=== PATIENT | female | born 1985 | race Hispanic/Latino ===

== ENCOUNTER 2017-03-18 20:47 | Emergency (ER) | payer MEDICAID ==
[~2017-03-18] VITALS: Ht 162.6 cm; Wt 72.6 kg
[~2017-03-18 20:47] MED LIST: ACHD5005 PO; AMOX500C2 PO; CEPH500C PO; CFP200T PO; CPR500T PO; CYCL10TA9 PO; DOXY100C42 PO; FERR325C PO; FRS325T PO; HYDR-3456 PO; HYDR-3816; IBP600T1 PO; IBUP-30 PO; INSASP10V SC; INSASP10V SQ; INSU100C4 SQ; INSU100I16 SQ; INSU100I23 SQ; INSU100V SQ; INSU100V16 SC; INSU100V6 SQ; LEVE1U SQ; LVF500T PO; METF-380 PO; METR500T PO; MTF500T PO; NITR-65 PO; NITR100C PO; NITR100C3 PO; PREN1TAB39 PO
[2017-03-18] MEDS ORDERED: NS IV 1000 ML 1,000 ML IV ONE ×2 (21:09→22:21)
[2017-03-18 21:21] LABS: ABG BASE EXCESS 0.9 MMOL/L (-2.5-2.5); ABG HCO3 25 MMOL/L (23-27); ABG OXYGEN SATURATION 99 % (94-100); ABG PCO2 38 MMHG (35-45); ABG PH 7.43 (7.37-7.43); ABG PO2 113 MMHG (79-93)
[2017-03-18 21:25] LABS: PATIENT TEMP 98.2
--- NOTE | 2017-03-18 21:25 | ED General ---
General Chief Complaint: Glucose Problems Stated Complaint: HIGH BLOOD SUGAR,RASH ON BUTTOCKS Nursing Triage Note: C/O HIGH BLOOD SUGAR, REPORTS HASN'T CHECKED HER LEVEL IN 3 DAYS Nursing Sepsis Screen: No Definite Risk Source of Information: Patient History of Present Illness Time Seen by Provider: 21:04 Initial Comments PT ARRIVES VIA POV FROM HOME PT STATES SHE HAS "SYMPTOMS OF HIGH BLOOD SUGAR" BUT HAS NOT CHECKED HER BLOOD SUGAR IN 3 DAYS, DOES HAVE GLUCOMETER AND TEST STRIPS AT HOME, AND GIVES NO REASON TO WHY SHE HAS NOT CHECKED IT C/O BEING TIRED--"BUT I'VE BEEN WORKING ALOT" , C/O THIRST, AND URINARY FREQUENCY--FOR THE LAST COUPLE OF DAYS STATES THE LAST TIME SHE CHECKED HER BLOOD SUGAR IT WAS "HIGH--IN THE 'S" BUT HAS NOT TAKEN HER INSULIN FOR A FEW DAYS, AND FREQUENTLY DOES NOT TAKE HER INSULIN, AND RARELY CHECKS HER BLOOD SUGAR SHE DID NOT TAKE INSULIN TODAY EITHER, AND GIVES NO REASON WHY SHE DID NOT PT STATES SHE DOESN'T TAKE HER INSULIN "BECAUSE SHE WORKS" PT WORKS AT [employer] AND THERE ARE REFRIGERATORS THAT SHE COULD USE TO PUT HER INSULIN IN WHILE SHE IS WORKING, BUT SIMPLY DOES NOT HAS NOT FOLLOWED UP AT [facility] OR ANYONE FOR DIABETES "FOR A LONG TIME" ALSO C/O "YEAST INFECTION" IN VAGINAL / GENITAL AREA FOR A COUPLE OF WEEKS-- STATES SHE WAS SEEN AT [facility] FOR THIS A COUPLE OF WEEKS AGO AND HAD VAGINAL EXAM AND CULTURES DONE, BUT STATES SHE DOES NOT KNOW TEST RESULTS, BUT "THEY GAVE ME SOME MEDICINE FOR IT" BUT DOES NOT KNOW WHAT MEDICATION SHE WAS PRESCRIBED. STATES SYMPTOMS NOT BETTER. C/O ITCHING AND VAGINAL DISCHARGE SON WAS IN ER LAST PM AND DX WITH STREP PT DOES NOT C/O SORE THROAT PCP:[facility] Allergies and Home Medications Allergies Coded Allergies: No Known Drug Allergies (Unverified , 09/25/11) Home Medications Fluconazole 200 Mg Tablet, 200 MG PO DAILY, #10 Prescribed by: SKYE LAKE on 03/18/17 2220 Insulin Glargine,Hum.rec.anlog 100 Unit/1 Ml Vial, 60 UNIT SQ HS, (Reported) Insulin Lispro 100 Unit/1 Ml Vial, Unknown Dose SQ SLIDING/SCALE, (Reported) Miconazole/Skin Cleanser No.17 1 Each Kit, 1 EACH VG UD, #1 Prescribed by: SKYE LAKE on 03/18/172219 Nitrofurantoin Monohyd/M-Cryst 100 Mg Capsule, 100 MG PO BID, #20 Prescribed by: SKYE LAKE on 03/18/172246 Constitutional: malaise EENTM: no symptoms reported Respiratory: no symptoms reported Cardiovascular: no symptoms reported Gastrointestinal: no symptoms reported Genitourinary: see HPI, frequency, other (ITCHING) : No LMP: Feb 13, 2017 (PERIODS IRREGULAR SINCE SHE HAS HAD IUD IN PLACE) Musculoskeletal: no symptoms reported Skin: see HPI (VAGINAL / GENITAL YEAST INFECTION--ITCHING, ETC. ) Psychiatric/Neurological: No Symptoms Reported Hematologic/Lymphatic: No Symptoms Reported Immunological/Allergic: no symptoms reported Past Ykagpuf-Jtumvd-Sujeps Hx Patient Social History Alcohol Use: Denies Use Recreational Drug Use: No Smoking Status: Current Everyday Smoker Type Used: Cigarettes Recent Foreign Travel: No Contact w/Someone Who Travel: No Recent Infectious Disease Expo: No Recent Hopitalizations: No Immunizations Up To Date Tetanus Booster (TDap): More than 5yrs PED Vaccines UTD: Yes Date of Pneumonia Vaccine: Sep 26, 2011 Date of Influenza Vaccine: Aug 22, 2012 Surgeries HX Surgeries: Yes Surgeries: Gallbladder Respiratory Hx Respiratory Disorders: No Cardiovascular Hx Cardiac Disorders: Yes (TACHYCARDIA BY HISTORY ) Cardiac Disorders: Heart Murmur Neurological Hx Neurological Disorders: No Reproductive System Hx Reproductive Disorders: No Sexually Transmitted Disease: No HIV/AIDS: 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 Genitourinary Hx Genitourinary Disorders: Yes Genitourinary Disorders: UTI-Chronic Gastrointestinal Hx Gastrointestinal Disorders: Yes (S/P LÓPEZ) Gastrointestinal Disorders: Gall Bladder Disease Musculoskeletal Hx Musculoskeletal Disorders: No Endocrine Hx Endocrine Disorders: Yes (DX AGE 13) Endocrine Disorders: Diabetes, Insulin dep HEENT HX ENT Disorders: No Cancer Hx Cancer: No Psychosocial Hx Psychiatric Problems: Yes (SUICIDE ATTEMPT AT AGE 13 Y/O) Behavioral Health Disorders: Anxiety, Suicide Attempts, Depression Integumentary HX Skin/Integumentary Disorder: No Blood Transfusions Hx Blood Disorders: Yes (ANEMIA) Adverse Reaction to a Blood Tr: No Family Medical History Family Medial History: Family history: Diabetes mellitus 19 MOTHER Physical Exam Vital Signs Vital Sign - Last 12Hours 03/18/17 21:01 Temp 98.2 Pulse 97 Resp 18 B/P (MAP) 76/ Pulse Ox 99 O2 Flow Rate 105.00 Capillary Refill : Less Than 3 Seconds General Appearance: No Apparent Distress, WD/WN HEENT: PERRL/EOMI, Other (POOR DENTITION, MULTIPLE MISSING TEETH) Neck: Full Range of Motion, Normal Inspection, Non Tender, Supple Respiratory: Normal Breath Sounds, No Accessory Muscle Use, No Respiratory Distress Cardiovascular: Regular Rate, Rhythm, No Edema, No JVD, No Murmur, Normal Peripheral Pulses Gastrointestinal: Normal Bowel Sounds, No Organomegaly, No Pulsatile Mass, Non Tender, Soft Genital/Rectal: Other (EXTERNAL GENITAL AREA--ERYTHEMA TO VULVO/VAGINAL AREA. NO OBVIOUS DISCHARGE. 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 II-XII Norm as Tested Skin: Normal Color, Warm/Dry, Tattoos/Piercings (MULTIPLE TATTOOS) Progress/Results/Core Measures Results/Orders Lab Results Laboratory Tests Test 03/18/17 21:08 03/18/17 21:12 03/18/17 21:15 03/18/17 21:20 Range/Units Glucometer 503 *H 70-110 MG/DL Group A Streptococcus Screen NEGATIVE NEGATIVE Blood Gas Puncture Site RIGHT BRACHIAL Blood Gas Patient Temperature 98.2 Arterial Blood pH 7.43 7.37-7.43 Arterial Blood Partial Pressure CO2 38 35-45 MMHG Arterial Blood Partial Pressure O2 113 H 79-93 MMHG Arterial Blood HCO3 25 23-27 MMOL/L Arterial Blood Total CO2 26.0 21.0-31.0 MMOL/L Arterial Blood Oxygen Saturation 99 94-100 % Arterial Blood Base Excess 0.9 -2.5-2.5 MMOL/L Kevin Test NA Blood Gas Ventilator Setting NO Blood Gas Inspired Oxygen ROOM AIR White Blood Count 6.6 4.3-11.0 10^3/uL Red Blood Count 4.39 4.35-5.85 10^6/uL Hemoglobin 13.9 11.5-16.0 G/DL Hematocrit 40 35-52 % Mean Corpuscular Volume 90 80-99 FL Mean Corpuscular Hemoglobin 32 25-34 PG Mean Corpuscular Hemoglobin Concent 35 32-36 G/DL Red Cell Distribution Width 11.9 10.0-14.5 % Platelet Count 242 130-400 10^3/uL Mean Platelet Volume 11.6 H 7.4-10.4 FL Neutrophils (%) (Auto) 54 42-75 % Lymphocytes (%) (Auto) 35 12-44 % Monocytes (%) (Auto) 8 0-12 % Eosinophils (%) (Auto) 3 0-10 % Basophils (%) (Auto) 1 0-10 % Neutrophils # (Auto) 3.5 1.8-7.8 X 10^3 Lymphocytes # (Auto) 2.3 1.0-4.0 X 10^3 Monocytes # (Auto) 0.6 0.0-1.0 X 10^3 Eosinophils # (Auto) 0.2 0.0-0.3 10^3/uL Basophils # (Auto) 0.0 0.0-0.1 10^3/uL Sodium Level 133 L 135-145 MMOL/L Potassium Level 3.7 3.6-5.0 MMOL/L Chloride Level 93 L 98-107 MMOL/L Carbon Dioxide Level 26 21-32 MMOL/L Anion Gap 14 5-14 MMOL/L Blood Urea Nitrogen 14 7-18 MG/DL Creatinine 1.02 0.60-1.30 MG/DL Estimat Glomerular Filtration Rate > 60 BUN/Creatinine Ratio 14 Glucose Level 495 *H 70-105 MG/DL Calcium Level 10.3 H 8.5-10.1 MG/DL Magnesium Level 2.1 1.8-2.4 MG/DL Total Bilirubin 1.1 H 0.1-1.0 MG/DL Aspartate Amino Transf (AST/SGOT) 27 5-34 U/L Alanine Aminotransferase (ALT/SGPT) 59 H 0-55 U/L Alkaline Phosphatase 121 40-136 U/L Total Protein 8.6 H 6.4-8.2 GM/DL Albumin 4.6 H 3.2-4.5 GM/DL Amylase Level 15 L 25-125 U/L Lipase 4 L 8-78 U/L TSH Toutle Testing 3.22 0.35-4.94 UIU/ML Serum Test, Qualitative NEGATIVE NEGATIVE Serum Alcohol < 10 <10 MG/DL Monoscreen NEGATIVE NEGATIVE Test 03/18/17 21:47 Range/Units Urine Color YELLOW Urine Clarity CLEAR Urine pH 6 5-9 Urine Specific [place] 1.010 L 1.016-1.022 Urine Protein 2+ H NEGATIVE Urine Glucose (UA) 4+ H NEGATIVE Urine Ketones 3+ H NEGATIVE Urine Nitrite NEGATIVE NEGATIVE Urine Bilirubin NEGATIVE NEGATIVE Urine Urobilinogen NORMAL NORMAL MG/DL Urine Leukocyte Esterase NEGATIVE NEGATIVE Urine RBC (Auto) 1+ H NEGATIVE Urine RBC 0-2 /HPF Urine WBC 10-25 H /HPF Urine Crystals NONE /LPF Urine Bacteria LARGE H /HPF Urine Casts NONE /LPF Urine Mucus NEGATIVE /LPF Urine Culture Indicated YES Urine Opiates Screen NEGATIVE NEGATIVE Urine Oxycodone Screen NEGATIVE NEGATIVE Urine Methadone Screen NEGATIVE NEGATIVE Urine Propoxyphene Screen NEGATIVE NEGATIVE Urine Barbiturates Screen NEGATIVE NEGATIVE Ur Tricyclic Antidepressants Screen NEGATIVE NEGATIVE Urine Phencyclidine Screen NEGATIVE NEGATIVE Urine Amphetamines Screen NEGATIVE NEGATIVE Urine Methamphetamines Screen NEGATIVE NEGATIVE Urine Benzodiazepines Screen NEGATIVE NEGATIVE Urine Cocaine Screen NEGATIVE NEGATIVE Urine Cannabinoids Screen NEGATIVE NEGATIVE My Orders Orders - SKYE LAKE DO Saline Lock/Iv-Start (03/18/17 21:09) Monitor-Rhythm Ecg Trace Only (03/18/17 21:09) Alcohol (03/18/17 21:09) Amylase (03/18/17 21:09) Arterial Blood Gas (03/18/17 21:09) Cbc With Automated Diff (03/18/17 21:09) Comprehensive Metabolic Panel (03/18/17 21:09) Drug Screen Stat (Urine) (03/18/17 21:09) Hcg,Qualitative Serum (03/18/17 21:09) Lipase (03/18/17 21:09) Magnesium (03/18/17 21:09) Monotest (03/18/17 21:09) Rapid Strep A Screen (03/18/17 21:09) Thyroid Analyzer (03/18/17 21:09) Ua Culture If Indicated (03/18/17 21:09) Saline Lock/Iv-Start (03/18/17 21:09) Ns Iv 1000 Ml (Sodium Chloride 0.9%) (03/18/17 21:09) Insulin (Regular) Human (Humulin R (Per (03/18/17 22:15) Urine Culture (03/18/17 21:47) Ceftriaxone Injection (Rocephin Injectio (03/18/17 22:30) Saline Lock/Iv-Start (03/18/17 22:21) Ns Iv 1000 Ml (Sodium Chloride 0.9%) (03/18/17 22:21) Insulin (Regular) Human (Humulin R (Per (03/18/17 22:15) Medications Given in ED Current Medications Medications Dose Ordered Sig/Cha Route Start Time Stop Time Status Last Admin Dose Admin Ceftriaxone Sodium 1000 mg/ Sodium Chloride 50 ml @ 100 mls/hr ONCE ONCE IV 03/18/17 22:30 03/18/17 22:59 DC 03/18/17 22:53 100 MLS/HR Insulin Human Regular 20 unit ONCE ONCE IV 03/18/17 22:15 03/18/17 22:20 DC 03/18/17 22:25 20 UNIT Sodium Chloride 1,000 ml @ 0 mls/hr Q0M ONCE IV 03/18/17 21:09 03/18/17 21:11 DC 03/18/17 21:22 0 MLS/HR Sodium Chloride 1,000 ml @ 0 mls/hr Q0M ONCE IV 03/18/17 22:21 03/18/17 22:37 DC 03/18/17 22:25 0 MLS/HR Vital Signs/I&O Vital Sign - Last 12Hours 03/18/17 03/18/17 21:01 23:03 Temp 98.2 Pulse 97 81 Resp 18 18 B/P (MAP) 76/ Pulse Ox 99 100 O2 Flow Rate 105.00 Progress Note : Progress Note ACCUCHECK 503 ON ARRIVAL ACCHCHECK 153 AT DISMISSAL STRESSED THE IMPORTANCE OF CHECKING HER BLOOD GLUCOSE AT LEAST 3 TIMES A DAY AND NOT MISSING ANY DOSES OF HER INSULIN ADVISED HER TO TAKE HER INSULIN AND GLUCOMETER WITH HER TO WORK EVERY SINGLE DAY. UNEVENTFUL ER STAY Departure Impression Impression: Primary Impression: Type I diabetes mellitus, uncontrolled Additional Impressions: Noncompliance with medication regimen EXTREME NON-COMPLIANCE IN ALL ASPECTS OF CARE Vulvovaginal candidiasis Urinary tract infectious disease Disposition: 01 HOME, SELF-CARE Condition: Improved Departure-Patient Inst. Referrals: [facility] (PCP/Family) Primary Care Physician Patient Instructions: Blood Glucose Monitoring, Diabetes Diet , Diabetes Type 1 , Adult (DC), Diabetic Meal Planning , Insulin Injection, Urinary Tract Infection, Adult (DC) Add. Discharge Instructions: CHECK YOUR BLOOD SUGAR AT LEAST 3 TIMES A DAY AND KEEP DIARY OF READINGS TAKE YOUR INSULIN EXACTLY PRESCRIBED FOLLOW UP WITH [facility] ON TUESDAY FOR FURTHER CARE All discharge instructions reviewed with patient and/or family. Voiced understanding. Scripts Nitrofurantoin Monohyd/M-Cryst (Macrobid 100 mg Capsule) 100 Mg Capsule 100 MG PO BID, #20 CAP Prov: SKYE LAKE DO 03/18/17 Miconazole/Skin Cleanser No.17 (Monistat 7 Combination Pack) 1 Each Kit 1 EACH VG UD, #1 KIT Prov: SKYE LAKE DO 03/18/17 Fluconazole (Diflucan) 200 Mg Tablet 200 MG PO DAILY for FOR YEAST INFECTION, #10 TAB Prov: SKYE LAKE DO 03/18/17 SKYE LAKE DO Mar 18, 2017 21:25
[2017-03-18 21:31] LABS: BASOPHILS % (AUTO) 1 % (0-10); EOSINOPHILS # (AUTO) 0.2 10^3/uL (0.0-0.3); EOSINOPHILS % (AUTO) 3 % (0-10); LYMPHOCYTES # (AUTO) 2.3 X 10^3 (1.0-4.0); LYMPHOCYTES % (AUTO) 35 % (12-44); MEAN CORPUSCULAR HEMOGLOBIN 32 PG (25-34); MEAN CORPUSCULAR HGB CONC 35 G/DL (32-36); MEAN CORPUSCULAR VOLUME 90 FL (80-99); MEAN PLATELET VOLUME 11.6 FL (7.4-10.4); MONOCYTES # (AUTO) 0.6 X 10^3 (0.0-1.0); MONOCYTES % (AUTO) 8 % (0-12); NEUTROPHILS # (AUTO) 3.5 X 10^3 (1.8-7.8); NEUTROPHILS % (AUTO) 54 % (42-75); PLATELET COUNT 242 10^3/uL (130-400); RED BLOOD COUNT 4.39 10^6/uL (4.35-5.85); RED CELL DISTRIBUTION WIDTH 11.9 % (10.0-14.5); WHITE BLOOD COUNT 6.6 10^3/uL (4.3-11.0)
[2017-03-18 21:50] LABS: ALANINE AMINOTRANSFERASE 59 U/L (0-55); ALBUMIN 4.6 GM/DL (3.2-4.5); ALCOHOL < 10 MG/DL (<10); AMYLASE 15 U/L (25-125); ANION GAP 14 MMOL/L (5-14); ASPARTATE AMINO TRANSFERASE 27 U/L (5-34); BILIRUBIN,TOTAL 1.1 MG/DL (0.1-1.0); BLOOD UREA NITROGEN 14 MG/DL (7-18); BUN/CREATININE RATIO 14; CALCIUM 10.3 MG/DL (8.5-10.1); CARBON DIOXIDE 26 MMOL/L (21-32); CHLORIDE 93 MMOL/L (98-107); CREATININE SERUM 1.02 MG/DL (0.60-1.30); GFR ESTIMATED > 60; LIPASE 4 U/L (8-78); MAGNESIUM 2.1 MG/DL (1.8-2.4); POTASSIUM 3.7 MMOL/L (3.6-5.0); SODIUM 133 MMOL/L (135-145); TOTAL PROTEIN 8.6 GM/DL (6.4-8.2)
[2017-03-18 21:53] LABS: GLUCOSE 495 MG/DL (70-105)
[2017-03-18 21:55] LABS: BILIRUBIN,URINE NEGATIVE (NEGATIVE); KETONES,URINE 3+ (NEGATIVE); LEUKOCYTE ESTERASE ,URINE NEGATIVE (NEGATIVE); NITRITE,URINE NEGATIVE (NEGATIVE); PH,URINE 6 (5-9); PROTEIN,URINE 2+ (NEGATIVE); UROBILINOGEN,URINE NORMAL (NORMAL)
[2017-03-18] MEDS ORDERED: inSUlin (REGULAR) HUMAN 1 UNIT/0.01 ML (CHARGE PER UNIT) ONE (22:15)
[2017-03-18] MEDS ORDERED: inSUlin (REGULAR) HUMAN 1 UNIT/0.01 ML (CHARGE PER UNIT) IV ONE (22:15)
[2017-03-18] MEDS ORDERED: MICO1KIT13 VG (22:20)
[2017-03-18] MEDS ORDERED: FLUC200T PO (22:20)
[2017-03-18] MEDS ORDERED: cefTRIAXone INJECTION 1,000 MG in NS (IVPB) 50 ML IV ONE (22:30)
[2017-03-18] MEDS ORDERED: NITR-65 PO (22:47)
[2017-03-18 23:03] VITALS: BP 100/70
[2017-03-20] MEDS ORDERED: AMOX500C2 PO (17:22)
== END 2017-03-18 23:07 | disposition home or self-care (01) ==
LOC: EDUNIT# 20:47 → ER 20:51
DX: E10.9 Type 1 diabetes mellitus without complications (principal); B37.3 Candidiasis of vulva and vagina; N39.0 Urinary tract infection, site not specified; F41.9 Anxiety disorder, unspecified; F32.9 Major depressive disorder, single episode, unspecified; F17.210 Nicotine dependence, cigarettes, uncomplicated; Z91.14 Patient's other noncompliance with medication regimen; Z91.5 Personal history of self-harm; Z79.4 Long term (current) use of insulin
CPT/HCPCS: 36415; 80053; 80306; 80320; 81000; 82150; 82805; 82962; 83690; 83735; 84443; 84703; 85025; 86308; 87088; 87186; 87430

== ENCOUNTER 2017-06-03 12:14 | Emergency (ER) | payer MEDICAID ==
[~2017-06-03] VITALS: Ht 160 cm; Wt 72.6 kg
[~2017-06-03 12:14] MED LIST changes: +FLUC200T PO; +MICO1KIT13 VG
[2017-06-03] MEDS: DEXTROSE 50% 50 ML (IMS) SYR ONE (12:28)
[2017-06-03] MEDS ORDERED: GABA-488 (12:37)
[2017-06-03] MEDS ORDERED: INSU100I29 (12:37)
[2017-06-03 12:38] LABS: BASOPHILS % (AUTO) 0 % (0-10); EOSINOPHILS % (AUTO) 0 % (0-10); LYMPHOCYTES # (AUTO) 0.9 X 10^3 (1.0-4.0); LYMPHOCYTES % (AUTO) 14 % (12-44); MEAN CORPUSCULAR HEMOGLOBIN 31 PG (25-34); MEAN CORPUSCULAR HGB CONC 32 G/DL (32-36); MEAN CORPUSCULAR VOLUME 98 FL (80-99); MEAN PLATELET VOLUME 10.8 FL (7.4-10.4); MONOCYTES # (AUTO) 0.3 X 10^3 (0.0-1.0); MONOCYTES % (AUTO) 4 % (0-12); NEUTROPHILS # (AUTO) 5.5 X 10^3 (1.8-7.8); NEUTROPHILS % (AUTO) 82 % (42-75); PLATELET COUNT 220 10^3/uL (130-400); RED BLOOD COUNT 3.48 10^6/uL (4.35-5.85); RED CELL DISTRIBUTION WIDTH 12.5 % (10.0-14.5); WHITE BLOOD COUNT 6.7 10^3/uL (4.3-11.0)
--- NOTE | 2017-06-03 12:41 | ED General ---
General Chief Complaint: Glucose Problems Stated Complaint: HYPOGLYCEMIA Nursing Triage Note: ARRIVED VIA AMB TO ROOM 08. FOUND UNRESPONSIVE AT HOME ET UPON EMS ARRIVAL BLOOD SUGAR SAID "LOW". AFTER EMS GAVE D50 IV HER BLOOD SUGAR WENT UP TO 140 AND BECAME RESPONSIVE FOR THEM. Nursing Sepsis Screen: No Definite Risk Source of Information: Patient Exam Limitations: No Limitations History of Present Illness Time Seen by Provider: 12:20 Initial Comments Here with report of low blood sugar this morning. Her son found her and called EMS due to unresponsiveness. Blood sugar was low on the monitor. 1 amp of D50 given and blood pressure improved to the 130s. Patient's mentation improved. She relates that she has not been feeling well over the past few days and slept all day yesterday. She did not eat much. Denies fever or chills. Denies nausea or vomiting. States that she just feels weak. Did have a fall to her knees yesterday but denies hitting her head. Denies pain or other sequela from that. Timing/Duration: 2-3 Days, Getting Worse Severity: Moderate Associated Systoms: No Chest Pain, No Cough, Diaphoresis, No Fever/Chills, Loss of Appetite, No Nausea/Vomiting, Weakness Allergies and Home Medications Allergies Coded Allergies: No Known Drug Allergies (Unverified , 09/25/11) Home Medications Gabapentin 300 Mg Capsule, (Reported) Insulin Detemir 100 Unit/1 Ml Insuln.pen, (Reported) Insulin Glargine,Hum.rec.anlog 100 Unit/1 Ml Vial, 60 UNIT SQ HS, (Reported) Insulin Lispro 100 Unit/1 Ml Vial, Unknown Dose SQ SLIDING/SCALE, (Reported) Constitutional: see HPI, No chills, No fever EENTM: no symptoms reported Respiratory: no symptoms reported Cardiovascular: No chest pain, edema Gastrointestinal: No abdominal pain, No nausea, No vomiting Genitourinary: no symptoms reported Musculoskeletal: No muscle pain, muscle weakness Skin: no symptoms reported Psychiatric/Neurological: Weakness Hematologic/Lymphatic: No Symptoms Reported All Other Systems Reviewed Negative Unless Noted: Yes Past Wkaqkux-Rreqwa-Qmtqam Hx Patient Social History Alcohol Use: Occasionally Uses Recreational Drug Use: No Smoking Status: Current Everyday Smoker Type Used: Cigarettes Recent Foreign Travel: No Contact w/Someone Who Travel: No Recent Infectious Disease Expo: No Recent Hopitalizations: No Immunizations Up To Date Tetanus Booster (TDap): More than 5yrs PED Vaccines UTD: Yes Date of Pneumonia Vaccine: Sep 26, 2011 Date of Influenza Vaccine: Aug 22, 2012 Surgeries History of Surgeries: Yes Surgeries: Gallbladder Respiratory History of Respiratory Disorde: No Cardiovascular History of Cardiac Disorders: Yes (TACHYCARDIA BY HISTORY ) Cardiac Disorders: Heart Murmur Neurological History of Neurological Disord: No Reproductive System Hx Reproductive Disorders: No Sexually Transmitted Disease: No HIV/AIDS: No 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 Genitourinary History of Genitourinary Disor: No Genitourinary Disorders: UTI-Chronic Gastrointestinal History of Gastrointestinal Di: Yes (S/P LÓPEZ) Gastrointestinal Disorders: Gall Bladder Disease Musculoskeletal History of Musculoskeletal Dis: No Endocrine History of Endocrine Disorders: Yes (DX AGE 13) Endocrine Disorders: Diabetes, Insulin dep HEENT History of HEENT Disorders: No Cancer History of Cancer: No Psychosocial History of Psychiatric Problem: Yes (SUICIDE ATTEMPT AT AGE 13 Y/O) Behavioral Health Disorders: Anxiety, Suicide Attempts, Depression Integumentary History of Skin or Integumenta: No Blood Transfusions History of Blood Disorders: Yes (ANEMIA) Adverse Reaction to a Blood Tr: No Reviewed Nursing Assessment Reviewed/Agree w Nursing PMH: Yes Family Medical History Family Medial History: Family history: Diabetes mellitus 19 MOTHER Physical Exam Vital Signs Vital Sign - Last 12Hours 06/03/17 12:14 Temp 98.0 Pulse 86 Resp 18 B/P (MAP) 131/91 Pulse Ox 98 Capillary Refill : Less Than 3 Seconds General Appearance: No Apparent Distress, WD/WN HEENT: PERRL/EOMI, Pharynx Normal, Other (puffiness around both eyes) Neck: Non Tender, Supple Respiratory: Lungs Clear, Normal Breath Sounds Cardiovascular: Regular Rate, Rhythm, No Murmur Gastrointestinal: Non Tender, Soft Back: Normal Inspection, No CVA Tenderness, No Vertebral Tenderness Extremity: Normal Range of Motion, Non Tender Neurologic/Psychiatric: Alert, Oriented x3 Skin: Normal Color, Cool, Diaphoresis Progress/Results/Core Measures Results/Orders Lab Results Laboratory Tests Test 06/03/17 12:25 06/03/17 12:40 Range/Units White Blood Count 6.7 4.3-11.0 10^3/uL Red Blood Count 3.48 L 4.35-5.85 10^6/uL Hemoglobin 10.9 L 11.5-16.0 G/DL Hematocrit 34 L 35-52 % Mean Corpuscular Volume 98 80-99 FL Mean Corpuscular Hemoglobin 31 25-34 PG Mean Corpuscular Hemoglobin Concent 32 32-36 G/DL Red Cell Distribution Width 12.5 10.0-14.5 % Platelet Count 220 130-400 10^3/uL Mean Platelet Volume 10.8 H 7.4-10.4 FL Neutrophils (%) (Auto) 82 H 42-75 % Lymphocytes (%) (Auto) 14 12-44 % Monocytes (%) (Auto) 4 0-12 % Eosinophils (%) (Auto) 0 0-10 % Basophils (%) (Auto) 0 0-10 % Neutrophils # (Auto) 5.5 1.8-7.8 X 10^3 Lymphocytes # (Auto) 0.9 L 1.0-4.0 X 10^3 Monocytes # (Auto) 0.3 0.0-1.0 X 10^3 Eosinophils # (Auto) 0.0 0.0-0.3 10^3/uL Basophils # (Auto) 0.0 0.0-0.1 10^3/uL Sodium Level 137 135-145 MMOL/L Potassium Level 3.8 3.6-5.0 MMOL/L Chloride Level 106 98-107 MMOL/L Carbon Dioxide Level 23 21-32 MMOL/L Anion Gap 8 5-14 MMOL/L Blood Urea Nitrogen 11 7-18 MG/DL Creatinine 0.62 0.60-1.30 MG/DL Estimat Glomerular Filtration Rate > 60 BUN/Creatinine Ratio 18 Glucose Level 234 H 70-105 MG/DL Calcium Level 8.3 L 8.5-10.1 MG/DL Total Bilirubin 0.2 0.1-1.0 MG/DL Aspartate Amino Transf (AST/SGOT) 93 H 5-34 U/L Alanine Aminotransferase (ALT/SGPT) 99 H 0-55 U/L Alkaline Phosphatase 88 40-136 U/L C-Reactive Protein High Sensitivity 0.07 0.00-0.50 MG/DL Total Protein 6.1 L 6.4-8.2 GM/DL Albumin 3.4 3.2-4.5 GM/DL Urine Color YELLOW Urine Clarity CLEAR Urine pH 5 5-9 Urine Specific [place] 1.010 L 1.016-1.022 Urine Protein NEGATIVE NEGATIVE Urine Glucose (UA) 4+ H NEGATIVE Urine Ketones NEGATIVE NEGATIVE Urine Nitrite POSITIVE H NEGATIVE Urine Bilirubin NEGATIVE NEGATIVE Urine Urobilinogen NORMAL NORMAL MG/DL Urine Leukocyte Esterase 2+ H NEGATIVE Urine RBC (Auto) 1+ H NEGATIVE Urine RBC NONE /HPF Urine WBC >100 H /HPF Urine Squamous Epithelial Cells 2-5 /HPF Urine Crystals NONE /LPF Urine Bacteria LARGE H /HPF Urine Casts NONE /LPF Urine Mucus NEGATIVE /LPF Urine Culture Indicated YES My Orders Orders - HEIDY GARCIA MD D50w (Emergency) Syringe (Dextrose 50% 5 (06/03/17 12:17) Cbc With Automated Diff (06/03/17 12:23) Comprehensive Metabolic Panel (06/03/17 12:23) Hs C Reactive Protein (06/03/17 12:23) Ua Culture If Indicated (06/03/17 12:23) Saline Lock/Iv-Start (06/03/17 12:23) Ns Iv 1000 Ml (Sodium Chloride 0.9%) (06/03/17 12:23) Chest 1 View, Ap/Pa Only (06/03/17 12:23) D50w (Emergency) Syringe (Dextrose 50% 5 (06/03/17 12:30) Ceftriaxone Injection (Rocephin Injectio (06/03/17 13:15) General/Regular (06/03/17 Lunch) Medications Given in ED Current Medications Medications Dose Ordered Sig/Cha Route Start Time Stop Time Status Last Admin Dose Admin Dextrose 50 ml STK-MED ONCE .ROUTE 06/03/17 12:17 06/03/17 12:25 DC 06/03/17 12:28 50 ML Sodium Chloride 1,000 ml @ 0 mls/hr Q0M ONCE IV 06/03/17 12:23 06/03/17 12:27 DC 06/03/17 12:54 1,000 MLS/HR Vital Signs/I&O Vital Sign - Last 12Hours 06/03/17 12:14 Temp 98.0 Pulse 86 Resp 18 B/P (MAP) 131/91 Pulse Ox 98 Intake and Output 06/04/17 00:00 Intake Total 500 ml Balance 500 ml Blood Pressure Mean: 104 Progress Note : Progress Note Seen and evaluated on arrival by EMS. IV by EMS. Labs, UA and normal saline 1 L bolus. Complete normal saline of EMS of 500 mL. Patient states she is not very hungry. Recheck of blood sugar shows it to be 89. One amp of D50 given. Monitor patient. 1310: UTI noted. Rocephin 1 g IV due to recent weakness and decreased appetite to ensure the first dose is initiated. Diet ordered. Monitor patient. Departure Impression Impression: Primary Impression: Hypoglycemia associated with diabetes Additional Impression: Urinary tract infectious disease Disposition: HOME, SELF-CARE Condition: Stable Departure-Patient Inst. Decision time for Depature: 13:15 Referrals: [facility] (PCP/Family) Primary Care Physician Patient Instructions: HYPOGLYCEMIA, Urinary Tract Infection, Adult (DC) Add. Discharge Instructions: All discharge instructions reviewed with patient and/or family. Voiced understanding. Take medications as directed. Ensure that you eat and carefully monitor your blood sugars. You do have a urinary tract infection. It is important that you drink plenty of fluids. Follow-up with your doctor early next week for recheck and further evaluation. Return for worse pain, fever, vomiting, weakness, breathing problems or other concerns as needed. Scripts Cephalexin (Cephalexin) 500 Mg Tablet 500 MG PO BID, #14 TAB 0 Refills Prov: HEIDY GARCIA MD 06/03/17 HEIDY GARCIA MD Jun 03, 2017 12:41
[2017-06-03] MEDS: NS IV 1000 ML 1,000 ML IV ONE (12:54)
[2017-06-03 12:56] LABS: BILIRUBIN,URINE NEGATIVE (NEGATIVE); KETONES,URINE NEGATIVE (NEGATIVE); LEUKOCYTE ESTERASE ,URINE 2+ (NEGATIVE); NITRITE,URINE POSITIVE (NEGATIVE); PH,URINE 5 (5-9); PROTEIN,URINE NEGATIVE (NEGATIVE); UROBILINOGEN,URINE NORMAL (NORMAL)
[2017-06-03 12:57] LABS: ALANINE AMINOTRANSFERASE 99 U/L (0-55); ALBUMIN 3.4 GM/DL (3.2-4.5); ANION GAP 8 MMOL/L (5-14); ASPARTATE AMINO TRANSFERASE 93 U/L (5-34); BILIRUBIN,TOTAL 0.2 MG/DL (0.1-1.0); BLOOD UREA NITROGEN 11 MG/DL (7-18); BUN/CREATININE RATIO 18; CALCIUM 8.3 MG/DL (8.5-10.1); CARBON DIOXIDE 23 MMOL/L (21-32); CHLORIDE 106 MMOL/L (98-107); CREATININE SERUM 0.62 MG/DL (0.60-1.30); GFR ESTIMATED > 60; GLUCOSE 234 MG/DL (70-105); POTASSIUM 3.8 MMOL/L (3.6-5.0); SODIUM 137 MMOL/L (135-145); TOTAL PROTEIN 6.1 GM/DL (6.4-8.2); hs C REACTIVE PROTEIN 0.07 MG/DL (0.00-0.50)
[2017-06-03] MEDS: DEXTROSE 50% 50 ML (IMS) SYR IV ONE (12:57)
[2017-06-03 13:07] LABS: WBC,URINE >100 /HPF
--- NOTE | 2017-06-03 13:19 | Diagnostic Imaging Report ---
CHEST 1 VIEW, AP/PA ONLY Indication: Unresponsive of low blood sugar. Comparison: 10/01/2013 Findings: No focal airspace disease in the visualized lungs. Please note that the posterior lower lobes are poorly evaluated by portable radiography. No pleural effusion or pneumothorax. Normal cardiomediastinal silhouette. Impression: No acute cardiopulmonary process by portable radiography. Dictated by: Dictated on workstation # [id number]
[2017-06-03] MEDS ORDERED: CEPH500T PO (13:23)
[2017-06-03] MEDS: cefTRIAXone INJECTION 1,000 MG in NS (IVPB) 50 ML IV ONE (13:32)
[2017-06-03 15:17] VITALS: BP 105/74
--- OUTSIDE RECORDS SUMMARY | 2017-06-03 21:10 | XMS REPORT ---
Author Author KIRTI CHAHAL [facility] Address [address] [place] [address] Care Team Providers Care Woods Rider Name Role Phone KIRTI CHAHAL Unavailable PROBLEMS Type Condition ICD9-CM Code [id number] Code Onset Dates Condition Status SNOMED Code Problem Type 1 diabetes mellitus with hyperglycemia E10.65 Active 113247073378238 Problem Type 2 diabetes mellitus without complications E11.9 Active [id number] Problem group home current use of insulin Z79.4 Active [id number] Assessment Major depressive disorder, recurrent episode, moderate F33.1 Apr, Active [id number] ALLERGIES Unknown Allergies SOCIAL HISTORY No smoking Hx information available PLAN OF CARE VITAL SIGNS MEDICATIONS Unknown Medications RESULTS No Results PROCEDURES Procedure Date Ordered Related Diagnosis Body Site Psychotherapy, patient &/family, 30 minutes, established patient Apr 29, 2016 IMMUNIZATIONS No Known Immunizations
--- OUTSIDE RECORDS SUMMARY | 2017-06-03 21:10 | XMS REPORT ---
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
--- OUTSIDE RECORDS SUMMARY | 2017-06-03 21:11 | XMS REPORT ---
Author Author NEY Vincent [facility] Address Unknown Care Team Providers Care Commodity Management Specialist Name Role Phone NEY Vincent Unavailable PROBLEMS Type Condition ICD9-CM Code [id number] Code Onset Dates Condition Status SNOMED Code Problem Type 1 diabetes mellitus with hyperglycemia E10.65 Active 180763586074446 Problem Type 2 diabetes mellitus without complications E11.9 Active 348082884 Problem prison current use of insulin Z79.4 Active 761472882 ALLERGIES Substance Reaction Event Type Date Status N.K.D.A. Unknown Non Drug Allergy Aug, Unknown SOCIAL HISTORY No smoking Hx information available PLAN OF CARE Activity Details Follow Up 1 Week Reason:#8-te VITAL SIGNS Height 64 in 2016-09-14 Blood pressure systolic 114 mmHg 2016-09-14 Blood pressure diastolic 76 mmHg 2016-09-14 MEDICATIONS Medication Instructions Dosage Frequency Start Date End Date Duration Status Levemir 100 UNIT/ML Subcutaneous Once a day 60 Units by Subcutaneous route 1 time per day for 30 days 24h Oct, Active Levemir Flexpen 100 unit/mL (3 mL) by Subcutaneous route 1 time per day 60 units in PM Jun, Active NovoLog Flexpen 100 unit/mL 10 SQ 3 times per day with meals Jun, Active Amoxicillin 500 MG Orally Four times a day 1 capsule 6h Aug, Aug, 7 days Active NovoLog 100 UNIT/ML Subcutaneous 3 times a day 10 units 8h Jan, Active RESULTS No Results PROCEDURES Procedure Date Ordered Related Diagnosis Body Site LTD ORAL EVALUATION - PROBLEM FOCUS Sep 14, 2016 INTRAORL-PERIAPICAL 1 FILM [id number] Sep 14, 2016 IMMUNIZATIONS No Known Immunizations
--- OUTSIDE RECORDS SUMMARY | 2017-06-03 21:11 | XMS REPORT ---
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
--- OUTSIDE RECORDS SUMMARY | 2017-06-03 21:11 | XMS REPORT ---
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
== END 2017-06-03 15:17 | disposition home or self-care (01) ==
LOC: EDUNIT# 12:14 → ER 12:16
DX: E11.649 Type 2 diabetes mellitus with hypoglycemia without coma (principal); N39.0 Urinary tract infection, site not specified; F41.9 Anxiety disorder, unspecified; F32.9 Major depressive disorder, single episode, unspecified; F17.210 Nicotine dependence, cigarettes, uncomplicated; Z79.4 Long term (current) use of insulin; Z87.440 Personal history of urinary (tract) infections; Z97.5 Presence of (intrauterine) contraceptive device; Z90.49 Acquired absence of other specified parts of digestive tract; Z91.5 Personal history of self-harm
CPT/HCPCS: 36415; 71010; 80053; 81000; 82962; 84703; 85025; 86141; 87077; 87088; 87186

== ENCOUNTER 2017-06-06 12:45 | Emergency (ER) | payer MEDICAID ==
[~2017-06-06] VITALS: Ht 157.5 cm; Wt 77.1 kg
[~2017-06-06 12:45] MED LIST changes: +CEPH500T PO; +GABA-488; +INSU100I29
[2017-06-06 14:59] LABS: BASOPHILS % (AUTO) 0 % (0-10); EOSINOPHILS # (AUTO) 0.2 10^3/uL (0.0-0.3); EOSINOPHILS % (AUTO) 3 % (0-10); LYMPHOCYTES # (AUTO) 2.1 X 10^3 (1.0-4.0); LYMPHOCYTES % (AUTO) 33 % (12-44); MEAN CORPUSCULAR HEMOGLOBIN 31 PG (25-34); MEAN CORPUSCULAR HGB CONC 34 G/DL (32-36); MEAN CORPUSCULAR VOLUME 93 FL (80-99); MEAN PLATELET VOLUME 10.8 FL (7.4-10.4); MONOCYTES # (AUTO) 0.4 X 10^3 (0.0-1.0); MONOCYTES % (AUTO) 6 % (0-12); NEUTROPHILS # (AUTO) 3.7 X 10^3 (1.8-7.8); NEUTROPHILS % (AUTO) 59 % (42-75); PLATELET COUNT 265 10^3/uL (130-400); RED BLOOD COUNT 4.14 10^6/uL (4.35-5.85); RED CELL DISTRIBUTION WIDTH 12.1 % (10.0-14.5); WHITE BLOOD COUNT 6.2 10^3/uL (4.3-11.0)
[2017-06-06 15:17] LABS: ALANINE AMINOTRANSFERASE 102 U/L (0-55); ALBUMIN 4.2 GM/DL (3.2-4.5); ANION GAP 12 MMOL/L (5-14); ASPARTATE AMINO TRANSFERASE 39 U/L (5-34); BILIRUBIN,TOTAL 0.7 MG/DL (0.1-1.0); BLOOD UREA NITROGEN 13 MG/DL (7-18); BUN/CREATININE RATIO 14; CALCIUM 9.9 MG/DL (8.5-10.1); CARBON DIOXIDE 24 MMOL/L (21-32); CHLORIDE 95 MMOL/L (98-107); CREATININE SERUM 0.96 MG/DL (0.60-1.30); GFR ESTIMATED > 60; POTASSIUM 4.1 MMOL/L (3.6-5.0); SODIUM 131 MMOL/L (135-145); TOTAL PROTEIN 7.7 GM/DL (6.4-8.2)
[2017-06-06 15:18] LABS: GLUCOSE 661 MG/DL (70-105)
--- NOTE | 2017-06-06 15:25 | ED General ---
General Chief Complaint: Glucose Problems Stated Complaint: HIGH BLOOD SUGAR Nursing Triage Note: c/o high blood sugar. Claims she has been out of her insulin since . Nursing Sepsis Screen: No Definite Risk Source of Information: Patient, Family (daughter) Exam Limitations: No Limitations History of Present Illness Time Seen by Provider: 15:25 Initial Comments 32 yo female patient presents to the ED with c/o elevated blood sugar. Reports her kids could not wake her up initially, so they called 911. Patient reportedly woke up a few minutes later, but states when EMS arrived they told her to come to the ED to be "checked out." Patient states she has been out of her levemir since and normally takes 80 u of levemir qHS. Patient states she does have her humalog at home but only takes it when "she can remember." Patient is supposed to check her BS 6x/day, but maybe remembers to take it 1-2 times daily. Patient was seen by Dr. Gusman one week ago. Patient states she did call the clinic today to see about getting a refill on her Levemir. Patient was seen in the emergency department last Tuesday for hypoglycemia. Patient has an extensive history of medical noncompliance. Timing/Duration: 1-3 Hours Modifying Factors: worse with Other (BS 400 at home, but then patient decided she wanted to drink a sprite. BS worse with sprite.) Allergies and Home Medications Allergies Coded Allergies: No Known Drug Allergies (Unverified , 09/25/11) Home Medications Cephalexin 500 Mg Tablet, 500 MG PO BID, #14 Ref 0 Prescribed by: HEIDY GARCIA on 06/03/17 1323 Gabapentin 300 Mg Capsule, (Reported) Insulin Detemir 100 Unit/1 Ml Insuln.pen, (Reported) Insulin Glargine,Hum.rec.anlog 100 Unit/1 Ml Vial, 60 UNIT SQ HS, (Reported) Constitutional: No chills, No diaphoresis, No dizziness, No fever, No malaise EENTM: no symptoms reported Respiratory: No cough, No dyspnea on exertion, No short of breath Cardiovascular: No chest pain, No palpitations, No syncope Gastrointestinal: No abdominal pain, No constipation, No diarrhea, No nausea, No vomiting Genitourinary: No decreased output, No dysuria, No frequency, No hematuria Musculoskeletal: no symptoms reported Skin: no symptoms reported Psychiatric/Neurological: No Symptoms Reported All Other Systems Reviewed Negative Unless Noted: Yes (Negative excepted noted.) Past [id number]-[id number] Hx Patient Social History Type Used: Cigarettes Recent Foreign Travel: No Contact w/Someone Who Travel: No Recent Infectious Disease Expo: No Recent Hopitalizations: No Immunizations Up To Date Tetanus Booster (TDap): More than 5yrs PED Vaccines UTD: Yes Date of Pneumonia Vaccine: Sep 26, 2011 Date of Influenza Vaccine: Aug 22, 2012 Surgeries History of Surgeries: Yes Surgeries: Gallbladder Respiratory History of Respiratory Disorde: No Cardiovascular History of Cardiac Disorders: Yes (TACHYCARDIA BY HISTORY ) Cardiac Disorders: Heart Murmur Neurological History of Neurological Disord: No Reproductive System Hx Reproductive Disorders: No Sexually Transmitted Disease: No HIV/AIDS: No 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 Genitourinary History of Genitourinary Disor: No Genitourinary Disorders: UTI-Chronic Gastrointestinal History of Gastrointestinal Di: Yes (S/P LÓPEZ) Gastrointestinal Disorders: Gall Bladder Disease Musculoskeletal History of Musculoskeletal Dis: No Endocrine History of Endocrine Disorders: Yes (DX AGE 13) Endocrine Disorders: Diabetes, Insulin dep HEENT History of HEENT Disorders: No Cancer History of Cancer: No Psychosocial History of Psychiatric Problem: Yes (SUICIDE ATTEMPT AT AGE 13 Y/O) Behavioral Health Disorders: Anxiety, Suicide Attempts, Depression Integumentary History of Skin or Integumenta: No Blood Transfusions History of Blood Disorders: Yes (ANEMIA) Adverse Reaction to a Blood Tr: No Reviewed Nursing Assessment Reviewed/Agree w Nursing PMH: Yes Family Medical History Significant Family History: No Pertinent Family Hx Family Medial History: Family history: Diabetes mellitus 18 MOTHER Physical Exam Vital Signs Vital Sign - Last 12Hours 06/06/17 14:36 Temp 98.1 Pulse 94 Resp 16 B/P (MAP) 106/73 Pulse Ox 98 O2 Delivery Room Air Capillary Refill : Less Than 3 Seconds General Appearance: No Apparent Distress, WD/WN HEENT: PERRL/EOMI, Pharynx Normal Neck: Normal Inspection, Supple Respiratory: Lungs Clear, Normal Breath Sounds, No Accessory Muscle Use, No Respiratory Distress Cardiovascular: Regular Rate, Rhythm, No Murmur, Normal Peripheral Pulses Gastrointestinal: Normal Bowel Sounds, No Organomegaly, Non Tender, Soft Back: Normal Inspection Extremity: Normal Capillary Refill, No Calf Tenderness, Pedal Edema (1+ pedal edema bilaterally) Neurologic/Psychiatric: Alert, Oriented x3, No Motor/Sensory Deficits, Normal Mood/Affect, bioanalyst II-XII Norm as Tested Skin: Normal Color, Warm/Dry Progress/Results/Core Measures Results/Orders Lab Results Laboratory Tests Test 06/06/17 14:55 06/06/17 18:03 Range/Units White Blood Count 6.2 4.3-11.0 10^3/uL Red Blood Count 4.14 L 4.35-5.85 10^6/uL Hemoglobin 13.0 11.5-16.0 G/DL Hematocrit 38 35-52 % Mean Corpuscular Volume 93 80-99 FL Mean Corpuscular Hemoglobin 31 25-34 PG Mean Corpuscular Hemoglobin Concent 34 32-36 G/DL Red Cell Distribution Width 12.1 10.0-14.5 % Platelet Count 265 130-400 10^3/uL Mean Platelet Volume 10.8 H 7.4-10.4 FL Neutrophils (%) (Auto) 59 42-75 % Lymphocytes (%) (Auto) 33 12-44 % Monocytes (%) (Auto) 6 0-12 % Eosinophils (%) (Auto) 3 0-10 % Basophils (%) (Auto) 0 0-10 % Neutrophils # (Auto) 3.7 1.8-7.8 X 10^3 Lymphocytes # (Auto) 2.1 1.0-4.0 X 10^3 Monocytes # (Auto) 0.4 0.0-1.0 X 10^3 Eosinophils # (Auto) 0.2 0.0-0.3 10^3/uL Basophils # (Auto) 0.0 0.0-0.1 10^3/uL Sodium Level 131 L 135-145 MMOL/L Potassium Level 4.1 3.6-5.0 MMOL/L Chloride Level 95 L 98-107 MMOL/L Carbon Dioxide Level 24 21-32 MMOL/L Anion Gap 12 5-14 MMOL/L Blood Urea Nitrogen 13 7-18 MG/DL Creatinine 0.96 0.60-1.30 MG/DL Estimat Glomerular Filtration Rate > 60 BUN/Creatinine Ratio 14 Glucose Level 661 *H 70-105 MG/DL Calcium Level 9.9 8.5-10.1 MG/DL Total Bilirubin 0.7 0.1-1.0 MG/DL Aspartate Amino Transf (AST/SGOT) 39 H 5-34 U/L Alanine Aminotransferase (ALT/SGPT) 102 H 0-55 U/L Alkaline Phosphatase 143 H 40-136 U/L Total Protein 7.7 6.4-8.2 GM/DL Albumin 4.2 3.2-4.5 GM/DL Urine Color YELLOW Urine Clarity CLEAR Urine pH 6 5-9 Urine Specific [place] 1.010 L 1.016-1.022 Urine Protein NEGATIVE NEGATIVE Urine Glucose (UA) 4+ H NEGATIVE Urine Ketones NEGATIVE NEGATIVE Urine Nitrite NEGATIVE NEGATIVE Urine Bilirubin NEGATIVE NEGATIVE Urine Urobilinogen NORMAL NORMAL MG/DL Urine Leukocyte Esterase NEGATIVE NEGATIVE Urine RBC (Auto) NEGATIVE NEGATIVE Urine RBC NONE /HPF Urine WBC NONE /HPF Urine Squamous Epithelial Cells RARE /HPF Urine Crystals NONE /LPF Urine Bacteria NEGATIVE /HPF Urine Casts NONE /LPF Urine Mucus NEGATIVE /LPF Urine Culture Indicated NO My Orders Orders - NILA ORELLANA Accucheck Stat ONCE (06/06/17 14:38) Cbc With Automated Diff (06/06/17 14:42) Comprehensive Metabolic Panel (06/06/17 14:42) Ua Culture If Indicated (06/06/17 14:42) Saline Lock/Iv-Start (06/06/17 14:42) Ns Iv 1000 Ml (Sodium Chloride 0.9%) (06/06/17 15:26) Insulin (Regular) Human (Humulin R (Per (06/06/17 15:26) Accucheck Stat ONCE (06/06/17 16:11) Medications Given in ED Current Medications Medications Dose Ordered Sig/Cha Route Start Time Stop Time Status Last Admin Dose Admin Sodium Chloride 1,000 ml @ 0 mls/hr Q0M ONCE IV 06/06/17 15:26 06/06/17 15:27 DC 06/06/17 10:00 0 MLS/HR Vital Signs/I&O Vital Sign - Last 12Hours 06/06/17 14:36 Temp 98.1 Pulse 94 Resp 16 B/P (MAP) 106/73 Pulse Ox 98 O2 Delivery Room Air Blood Pressure Mean: 84 Departure Impression Impression: Primary Impression: Medical non-compliance Additional Impression: Diabetes mellitus with hyperglycemia, with long-term current use of insulin Disposition: HOME, SELF-CARE Condition: Improved Departure-Patient Inst. Decision time for Depature: 18:23 Referrals: [facility] (PCP/Family) Primary Care Physician Patient Instructions: Diabetes Type 2 (DC) Add. Discharge Instructions: All discharge instructions reviewed with patient and/or family. Voiced understanding. TAKE MEDICATIONS PRESCRIBED BY YOUR PHYSICIAN including the Humalog. [place] [facility] your Levemir. Monitor blood sugars as instructed by [facility] 4-6 times daily. [place] [facility] for recheck within the next week. Return to the emergency department for worsened symptoms or any other concerns. NILA ORELLANA Jun 06, 2017 15:25
[2017-06-06] MEDS ORDERED: inSUlin (REGULAR) HUMAN 1 UNIT/0.01 ML (CHARGE PER UNIT) IV STA (15:26)
[2017-06-06] MEDS ORDERED: NS IV 1000 ML 1,000 ML IV ONE (15:26)
[2017-06-06 18:15] LABS: BILIRUBIN,URINE NEGATIVE (NEGATIVE); KETONES,URINE NEGATIVE (NEGATIVE); LEUKOCYTE ESTERASE ,URINE NEGATIVE (NEGATIVE); NITRITE,URINE NEGATIVE (NEGATIVE); PH,URINE 6 (5-9); PROTEIN,URINE NEGATIVE (NEGATIVE); UROBILINOGEN,URINE NORMAL (NORMAL)
[2017-06-06 18:21] LABS: SQUAMOUS EPITHELIAL CELL,UR RARE /HPF
[2017-06-06 18:27] VITALS: BP 108/70
== END 2017-06-06 18:27 | disposition home or self-care (01) ==
LOC: EDUNIT# 12:45 → ER 12:47
DX: E11.65 Type 2 diabetes mellitus with hyperglycemia (principal); F41.9 Anxiety disorder, unspecified; F32.9 Major depressive disorder, single episode, unspecified; Z91.5 Personal history of self-harm; Z79.4 Long term (current) use of insulin; Z97.5 Presence of (intrauterine) contraceptive device; Z87.440 Personal history of urinary (tract) infections; Z90.49 Acquired absence of other specified parts of digestive tract; Z87.19 Personal history of other diseases of the digestive system; Z91.14 Patient's other noncompliance with medication regimen
CPT/HCPCS: 36415; 80053; 81000; 82962; 85025

== ENCOUNTER 2017-07-20 20:10 | Observation (INO) | payer MEDICAID ==
[~2017-07-20] VITALS: Ht 162.6 cm; Wt 79.5 kg
--- NOTE | 2017-07-20 20:21 | ED General ---
General Stated Complaint: CHEST PAIN Source of Information: Patient, EMS Exam Limitations: No Limitations History of Present Illness Time Seen by Provider: 20:18 Initial Comments To ER per EMS with reports of chest pain and palpitations. This began shortly before calling 911. Upon EMS arrival she was found to have heart rate of 215 narrow complex. She was given 6 mg of IV adenosine which converted her to a much slower sinus rhythm in the upper 90s. Chest pain and dyspnea reduced. She states that she has a history of these sensations but this has always resolved before anybody can capture anything on an EKG. She is also an insulin- dependent diabetic. Her blood sugar on scene was found to read "high". 2 IVs were started she was given a bag of saline. She does take Levemir 30 units at noon and NovoLog 20 units at mealtime. She's had all of her insulin except for her evening dose of mealtime insulin. She is currently on penicillin for some dental pain that she's been having but without any facial swelling or swelling to her gums. Timing/Duration: 1/2 Hour Severity: Moderate Allergies and Home Medications Allergies Coded Allergies: No Known Drug Allergies (Unverified , 09/25/11) Home Medications Cephalexin 500 Mg Tablet, 500 MG PO BID, #14 Ref 0 Prescribed by: HEIDY GARCIA on 06/03/17 1323 Gabapentin 300 Mg Capsule, (Reported) Insulin Detemir 100 Unit/1 Ml Insuln.pen, (Reported) Insulin Glargine,Hum.rec.anlog 100 Unit/1 Ml Vial, 60 UNIT SQ HS, (Reported) Constitutional: see HPI EENTM: see HPI Respiratory: see HPI, short of breath Cardiovascular: see HPI, chest pain, palpitations Genitourinary: no symptoms reported Musculoskeletal: no symptoms reported Skin: no symptoms reported Psychiatric/Neurological: No Symptoms Reported Past Mwdnzws-Xiwwuc-Aedozh Hx Patient Social History Type Used: Cigarettes Recent Hopitalizations: No Immunizations Up To Date Tetanus Booster (TDap): More than 5yrs PED Vaccines UTD: Yes Date of Pneumonia Vaccine: Sep 26, 2011 Date of Influenza Vaccine: Aug 22, 2012 Surgeries History of Surgeries: Yes Surgeries: Gallbladder Respiratory History of Respiratory Disorde: No Cardiovascular History of Cardiac Disorders: Yes (TACHYCARDIA BY HISTORY ) Cardiac Disorders: Heart Murmur Neurological History of Neurological Disord: No Reproductive System Hx Reproductive Disorders: No Sexually Transmitted Disease: No HIV/AIDS: No 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 Genitourinary History of Genitourinary Disor: No Genitourinary Disorders: UTI-Chronic Gastrointestinal History of Gastrointestinal Di: Yes (S/P LÓPEZ) Gastrointestinal Disorders: Gall Bladder Disease Musculoskeletal History of Musculoskeletal Dis: No Endocrine History of Endocrine Disorders: Yes (DX AGE 13) Endocrine Disorders: Diabetes, Insulin dep HEENT History of HEENT Disorders: No Cancer History of Cancer: No Psychosocial History of Psychiatric Problem: Yes (SUICIDE ATTEMPT AT AGE 13 Y/O) Behavioral Health Disorders: Anxiety, Suicide Attempts, Depression Integumentary History of Skin or Integumenta: No Blood Transfusions History of Blood Disorders: Yes (ANEMIA) Adverse Reaction to a Blood Tr: No Family Medical History Significant Family History: No Pertinent Family Hx Family Medial History: Family history: Diabetes mellitus 19 MOTHER Physical Exam Vital Signs Vital Sign - Last 12Hours 07/20/17 20:21 Temp 97.3 Pulse 103 Resp 20 B/P (MAP) 99/66 Pulse Ox 95 O2 Delivery Room Air Capillary Refill : General Appearance: No Apparent Distress, WD/WN, Chronically ill Eyes: Bilateral Eye Normal Inspection, Bilateral Eye PERRL, Bilateral Eye EOMI HEENT: PERRL/EOMI, TMs Normal Neck: Full Range of Motion, Normal Inspection Respiratory: No Accessory Muscle Use, No Respiratory Distress Cardiovascular: Regular Rate, Rhythm, Normal Peripheral Pulses, Other (on our monitor she is sinus rhythm with a rate of 95) Gastrointestinal: Normal Bowel Sounds, Non Tender, Soft Extremity: Normal Capillary Refill, Normal Inspection Neurologic/Psychiatric: Alert, Oriented x3, No Motor/Sensory Deficits Skin: Normal Color, Warm/Dry Progress/Results/Core Measures Suspected Sepsis SIRS Temperature: Pulse: Respiratory Rate: Laboratory Tests 07/20/17 20:15: White Blood Count 7.5 Blood Pressure / Mean: Laboratory Tests 07/20/17 20:15: Platelet Count 212 07/20/17 20:40: Creatinine 1.24, Total Bilirubin 0.5 Results/Orders Lab Results Laboratory Tests Test 07/20/17 20:13 07/20/17 20:15 07/20/17 20:40 07/20/17 21:02 Range/Units Serum Test, Qualitative NEGATIVE NEGATIVE White Blood Count 7.5 4.3-11.0 10^3/uL Red Blood Count 3.85 L 4.35-5.85 10^6/uL Hemoglobin 12.3 11.5-16.0 G/DL Hematocrit 35 35-52 % Mean Corpuscular Volume 92 80-99 FL Mean Corpuscular Hemoglobin 32 25-34 PG Mean Corpuscular Hemoglobin Concent 35 32-36 G/DL Red Cell Distribution Width 11.6 10.0-14.5 % Platelet Count 212 130-400 10^3/uL Mean Platelet Volume 12.6 H 7.4-10.4 FL Neutrophils (%) (Auto) 66 42-75 % Lymphocytes (%) (Auto) 28 12-44 % Monocytes (%) (Auto) 5 0-12 % Eosinophils (%) (Auto) 1 0-10 % Basophils (%) (Auto) 0 0-10 % Neutrophils # (Auto) 4.9 1.8-7.8 X 10^3 Lymphocytes # (Auto) 2.1 1.0-4.0 X 10^3 Monocytes # (Auto) 0.4 0.0-1.0 X 10^3 Eosinophils # (Auto) 0.1 0.0-0.3 10^3/uL Basophils # (Auto) 0.0 0.0-0.1 10^3/uL D-Dimer 0.81 H 0.00-0.49 UG/ML Glucometer > 600 *H 555 *H 70-110 MG/DL Sodium Level 132 L 135-145 MMOL/L Potassium Level 3.8 3.6-5.0 MMOL/L Chloride Level 100 98-107 MMOL/L Carbon Dioxide Level 20 L 21-32 MMOL/L Anion Gap 12 5-14 MMOL/L Blood Urea Nitrogen 11 7-18 MG/DL Creatinine 1.24 0.60-1.30 MG/DL Estimat Glomerular Filtration Rate 50 BUN/Creatinine Ratio 9 Glucose Level 795 *H 70-105 MG/DL Calcium Level 8.8 8.5-10.1 MG/DL Magnesium Level 2.0 1.8-2.4 MG/DL Total Bilirubin 0.5 0.1-1.0 MG/DL Aspartate Amino Transf (AST/SGOT) 65 H 5-34 U/L Alanine Aminotransferase (ALT/SGPT) 44 0-55 U/L Alkaline Phosphatase 120 40-136 U/L Troponin I < 0.30 <0.30 NG/ML Total Protein 6.7 6.4-8.2 GM/DL Albumin 3.6 3.2-4.5 GM/DL Thyroid Stimulating Hormone (TSH) 1.76 0.35-4.94 UIU/ML Free Thyroxine 0.89 0.70-1.48 NG/DL Test 07/20/17 21:39 Range/Units Blood Gas Puncture Site RT RAD Blood Gas Patient Temperature 97.3 Arterial Blood pH 7.36 L 7.37-7.43 Arterial Blood Partial Pressure CO2 35 35-45 MMHG Arterial Blood Partial Pressure O2 93 79-93 MMHG Arterial Blood HCO3 20 L 23-27 MMOL/L Arterial Blood Total CO2 20.9 L 21.0-31.0 MMOL/L Arterial Blood Oxygen Saturation 99 94-100 % Arterial Blood Base Excess -4.8 L -2.5-2.5 MMOL/L Kevin Test YES-POS Blood Gas Ventilator Setting NO Blood Gas Inspired Oxygen ROOM AIR My Orders Orders - ARNULFO DUKE APRN Cbc With Automated Diff (07/20/17 20:17) Comprehensive Metabolic Panel (07/20/17 20:17) Ua Culture If Indicated (07/20/17 20:17) Urine Bedside (07/20/17 20:17) Saline Lock/Iv-Start (07/20/17 20:17) Drug Screen Stat (Urine) (07/20/17 20:17) Ekg Tracing (07/20/17 20:17) Troponin I (07/20/17 20:17) Magnesium (07/20/17 20:17) Thyroid Stimulating Hormone (07/20/17 20:17) Free T4 (Free Thyroxine) (07/20/17 20:17) Chest 1 View, Ap/Pa Only (07/20/17 20:17) Insulin (Regular) Human (Humulin R (Per (07/20/17 20:30) Fibrin Degradation Products (07/20/17 20:22) Accucheck Stat ONCE (07/20/17 21:00) Ct Angio Chest W (07/20/17 21:02) Ns Iv 1000 Ml (Sodium Chloride 0.9%) (07/20/17 21:15) Iohexol Injection (Omnipaque 350 Mg/Ml 1 (07/20/17 21:15) Ns (Ivpb) (Sodium Chloride 0.9% Ivpb Bag (07/20/17 21:15) Pharmacy Communication (Pharmacy Communi (07/20/17 21:03) Sodium Chloride Flush (Catheter Flush Sy (07/20/17 21:15) Insulin Regular Tpn/Drip Only (Humulin R (07/20/17 21:15) Hcg,Qualitative Serum (07/20/17 21:12) Iohexol Injection (Omnipaque 350 Mg/Ml 1 (07/20/17 21:45) Di Iv Start (Assessment) (07/20/17 21:33) Insulin (Regular) Human (Humulin R (Per (07/20/17 21:45) Arterial Blood Gas (07/20/17 21:40) Accucheck Stat ONCE (07/20/17 21:44) Medications Given in ED Current Medications Medications Dose Ordered Sig/Cha Route Start Time Stop Time Status Last Admin Dose Admin Insulin Human Regular 10 unit ONCE ONCE IV 07/20/17 20:30 07/20/17 20:31 DC 07/20/17 20:30 10 UNIT Insulin Human Regular 100 unit ONCE ONCE IV 07/20/17 21:45 07/20/17 21:46 DC 07/20/17 21:36 100 UNIT Iohexol 100 ml ONCE ONCE IV 07/20/17 21:45 07/20/17 21:46 DC 07/20/17 21:35 100 ML Sodium Chloride 10 ml NEEDED PRN IV 07/20/17 21:15 07/20/17 21:36 10 ML Sodium Chloride 100 ml ONCE ONCE IV 07/20/17 21:15 07/20/17 21:16 DC 07/20/17 21:36 80 ML Vital Signs/I&O Vital Sign - Last 12Hours 07/20/17 20:21 Temp 97.3 Pulse 103 Resp 20 B/P (MAP) 99/66 Pulse Ox 95 O2 Delivery Room Air Intake and Output 07/21/17 00:00 Intake Total 300 ml Balance 300 ml Capillary Refill : Departure Communication (Admissions) Time/Spoke to Admitting Phy: 21:56 Communication I did discuss the case with Dr. Sonia Bedoya. We will admit patient observation status, continued insulin drip. Apparently because of the insulin drip the patient needs to be in the ICU according to nursing staff. This cannot be managed on the medical floor any longer. She will go to ICU 12. We will consult cardiology in the morning in regards to the SVT. Progress Notes 2056-patient has remained in sinus rhythm with a rate of 90-100 and adequate blood pressures during her stay with us in the emergency room. Does report some mild persistent dyspnea but no chest pain or palpitations. Impression Impression: Primary Impression: Type I diabetes mellitus, uncontrolled Additional Impressions: Hyperglycemia Paroxysmal SVT (supraventricular tachycardia) Disposition: ADMITTED INPATIENT Condition: Improved Admissions Decision to Admit Reason: Admit from ER (General) Decision to Admit/Date: Jul 20, 2017 Time/Decision to Admit Time: 21:56 Departure-Patient Inst. Referrals: [facility] (PCP/Family) Primary Care Physician ARNULFO DUKE APRN Jul 20, 2017 20:21
[2017-07-20 20:23] LABS: BASOPHILS % (AUTO) 0 % (0-10); EOSINOPHILS # (AUTO) 0.1 10^3/uL (0.0-0.3); EOSINOPHILS % (AUTO) 1 % (0-10); LYMPHOCYTES # (AUTO) 2.1 X 10^3 (1.0-4.0); LYMPHOCYTES % (AUTO) 28 % (12-44); MEAN CORPUSCULAR HEMOGLOBIN 32 PG (25-34); MEAN CORPUSCULAR HGB CONC 35 G/DL (32-36); MEAN CORPUSCULAR VOLUME 92 FL (80-99); MEAN PLATELET VOLUME 12.6 FL (7.4-10.4); MONOCYTES # (AUTO) 0.4 X 10^3 (0.0-1.0); MONOCYTES % (AUTO) 5 % (0-12); NEUTROPHILS # (AUTO) 4.9 X 10^3 (1.8-7.8); NEUTROPHILS % (AUTO) 66 % (42-75); PLATELET COUNT 212 10^3/uL (130-400); RED BLOOD COUNT 3.85 10^6/uL (4.35-5.85); RED CELL DISTRIBUTION WIDTH 11.6 % (10.0-14.5); WHITE BLOOD COUNT 7.5 10^3/uL (4.3-11.0)
[2017-07-20] MEDS ORDERED: inSUlin (REGULAR) HUMAN 1 UNIT/0.01 ML (CHARGE PER UNIT) IV ONE ×2 (20:30→21:45)
[2017-07-20 21:07] LABS: ALANINE AMINOTRANSFERASE 44 U/L (0-55); ALBUMIN 3.6 GM/DL (3.2-4.5); ANION GAP 12 MMOL/L (5-14); ASPARTATE AMINO TRANSFERASE 65 U/L (5-34); BILIRUBIN,TOTAL 0.5 MG/DL (0.1-1.0); BLOOD UREA NITROGEN 11 MG/DL (7-18); BUN/CREATININE RATIO 9; CALCIUM 8.8 MG/DL (8.5-10.1); CARBON DIOXIDE 20 MMOL/L (21-32); CHLORIDE 100 MMOL/L (98-107); CREATININE SERUM 1.24 MG/DL (0.60-1.30); GFR ESTIMATED 50; POTASSIUM 3.8 MMOL/L (3.6-5.0); SODIUM 132 MMOL/L (135-145); TOTAL PROTEIN 6.7 GM/DL (6.4-8.2)
[2017-07-20 21:10] LABS: GLUCOSE 795 MG/DL (70-105)
[2017-07-20] MEDS ORDERED: inSUlin REGULAR TPN/DRIP ONLY 250 UNITS in NORMAL SALINE 250 ML IV SCH (21:15)
[2017-07-20] MEDS ORDERED: NS IV 1000 ML 1,000 ML IV SCH (21:15)
[2017-07-20] MEDS ORDERED: IOHEXOL 350 MG/ML 150 ML (OMNIPAQUE 350) VIAL IV ONE (21:15)
[2017-07-20] MEDS ORDERED: CATHETER FLUSH 10 ML SYR IV PRN (21:15)
[2017-07-20 21:27] LABS: THYROID STIMULATING HORMONE 1.76 UIU/ML (0.35-4.94); TROPONIN I < 0.30 NG/ML (<0.30)
[2017-07-20] MEDS: NS 100 ML (IVPB) BAG IV ONE ×2 (21:34→21:36)
[2017-07-20 21:45] LABS: ABG BASE EXCESS -4.8 MMOL/L (-2.5-2.5); ABG HCO3 20 MMOL/L (23-27); ABG OXYGEN SATURATION 99 % (94-100); ABG PCO2 35 MMHG (35-45); ABG PH 7.36 (7.37-7.43); ABG PO2 93 MMHG (79-93); ABG TCO2 20.9 MMOL/L (21.0-31.0)
[2017-07-20] MEDS ORDERED: IOHEXOL 350 MG/ML 100 ML (OMNIPAQUE 350) VIAL IV ONE (21:45)
[2017-07-20 21:47] LABS: ALLENS TEST YES-POS; PATIENT TEMP 97.3
[2017-07-20 21:59] LABS: BILIRUBIN,URINE NEGATIVE (NEGATIVE); KETONES,URINE 1+ (NEGATIVE); LEUKOCYTE ESTERASE ,URINE NEGATIVE (NEGATIVE); NITRITE,URINE POSITIVE (NEGATIVE); PH,URINE 6.5 (5-9); PROTEIN,URINE 1+ (NEGATIVE); UROBILINOGEN,URINE NORMAL (NORMAL)
--- NOTE | 2017-07-20 22:06 | Diagnostic Imaging Report ---
PROCEDURE: CT angiography of the chest with contrast. TECHNIQUE: Multiple contiguous axial images were obtained through the chest after uneventful bolus administration of intravenous contrast. Reconstructed CTA MIP acquisitions were also performed. INDICATION: Tachycardia. Chest pain. Elevated d-dimer. COMPARISON: None FINDINGS: There is no evidence of acute pulmonary embolus to the first subsegmental division of the pulmonary arteries. Heart size is within normal limits. There is no large pericardial effusion. No pathologically enlarged or morphologically abnormal adenopathy is seen within the mediastinum, antonio, nor axilla. Evaluation of the lung mace demonstrates no focal consolidation, pleural effusion, nor pneumothorax. No pulmonary nodules or masses are identified. Bony structures show no acute abnormalities. No lytic or blastic bony lesions are seen. Included portions of the upper abdomen are unremarkable. IMPRESSION: 1. No CT evidence of acute pulmonary embolus. 2. No other acute cardiopulmonary process. Dictated by: Dictated on workstation # [id number]
[2017-07-20 22:11] LABS: WBC,URINE RARE /HPF
[2017-07-20 22:36] VITALS: BP 114/75
[2017-07-20] MEDS ORDERED: D5 1/2 NS W/KCL 20 MEQ/L 1,000 ML IV ONE (22:46)
[2017-07-20 23:00] VITALS: BP 110/81
[2017-07-21] VITALS (19 sets, daily range): BP systolic 89–128; BP diastolic 54–95
[2017-07-21 00:04] LABS: BASOPHILS % (AUTO) 0 % (0-10); EOSINOPHILS # (AUTO) 0.1 10^3/uL (0.0-0.3); EOSINOPHILS % (AUTO) 1 % (0-10); LYMPHOCYTES # (AUTO) 2.9 X 10^3 (1.0-4.0); LYMPHOCYTES % (AUTO) 38 % (12-44); MEAN CORPUSCULAR HEMOGLOBIN 32 PG (25-34); MEAN CORPUSCULAR HGB CONC 34 G/DL (32-36); MEAN CORPUSCULAR VOLUME 91 FL (80-99); MEAN PLATELET VOLUME 11.7 FL (7.4-10.4); MONOCYTES # (AUTO) 0.5 X 10^3 (0.0-1.0); MONOCYTES % (AUTO) 6 % (0-12); NEUTROPHILS # (AUTO) 4.3 X 10^3 (1.8-7.8); NEUTROPHILS % (AUTO) 55 % (42-75); PLATELET COUNT 181 10^3/uL (130-400); RED BLOOD COUNT 3.62 10^6/uL (4.35-5.85); RED CELL DISTRIBUTION WIDTH 11.4 % (10.0-14.5); WHITE BLOOD COUNT 7.8 10^3/uL (4.3-11.0)
[2017-07-21 00:28] LABS: ANION GAP 11 MMOL/L (5-14); BLOOD UREA NITROGEN 10 MG/DL (7-18); BUN/CREATININE RATIO 13; CALCIUM 8.5 MG/DL (8.5-10.1); CARBON DIOXIDE 22 MMOL/L (21-32); CHLORIDE 105 MMOL/L (98-107); CREATININE SERUM 0.77 MG/DL (0.60-1.30); GFR ESTIMATED > 60; GLUCOSE 207 MG/DL (70-105); POTASSIUM 3.4 MMOL/L (3.6-5.0); SODIUM 138 MMOL/L (135-145)
--- NOTE | 2017-07-21 00:33 | Diagnostic Imaging Report ---
INDICATION: Tachycardia. Chest pain. COMPARISON: 06/03/2017 FINDINGS: Single frontal view of the chest demonstrates normal heart size and pulmonary vascularity. The lungs are well aerated and clear. No large pleural effusion or pneumothorax is seen. The visualized osseous structures show no acute abnormalities. IMPRESSION: 1. No acute cardiopulmonary process. Dictated by: Dictated on workstation # [id number]
[2017-07-21] MEDS: inSUlin DETERMIR 1 UNIT/0.01 ML (LEVEMIR) CHARGE PER UNIT SQ SCH ×2 (02:38→08:39)
[2017-07-21] MEDS ORDERED: 1/2 NS W/KCL 20 MEQ/L 1,000 ML IV PRN (03:15)
[2017-07-21] MEDS ORDERED: DEXTROSE 10% IV SOLUTION 1,000 ML IV SCH (03:15)
[2017-07-21] MEDS ORDERED: inSUlin REGULAR TPN/DRIP 250 UNITS/NS 250 ML IV SCH ×2 (03:15)
[2017-07-21] MEDS ORDERED: D5 1/2 NS W/KCL 20 MEQ/L 1,000 ML IV PRN (03:15)
[2017-07-21 05:37] LABS: ANION GAP 8 MMOL/L (5-14); BLOOD UREA NITROGEN 10 MG/DL (7-18); BUN/CREATININE RATIO 16; CARBON DIOXIDE 22 MMOL/L (21-32); CHLORIDE 107 MMOL/L (98-107); CREATININE SERUM 0.64 MG/DL (0.60-1.30); GFR ESTIMATED > 60; GLUCOSE 248 MG/DL (70-105); MAGNESIUM 1.7 MG/DL (1.8-2.4); PHOSPHORUS 3.3 MG/DL (2.3-4.7); POTASSIUM 3.9 MMOL/L (3.6-5.0); SODIUM 137 MMOL/L (135-145)
[2017-07-21] MEDS: inSUlin ASPART (NovoLOG) 1 UNIT/0.01 ML (CHARGE PER UNIT) SC SCH ×2 (06:29→11:18)
[2017-07-21] MEDS: PENICILLIN V K 250 MG TAB PO SCH ×2 (06:42→11:57)
[2017-07-21] MEDS ORDERED: ENOXAPARIN 30 MG/0.3 ML (LOVENOX) SYR SC SCH (09:00)
--- NOTE | 2017-07-21 09:52 | Short Stay Summary ---
History of Present Illness History of Present Illness Reason for visit/HPI Lin is a 32yo woman with type 2 diabetes, uncontrolled, who presented to ER with complaints of rapid onset chest pain, palpitations and SOB. She called EMS and was found to have narrow complex tachycardia >200BPM. This was resolved with 6mg of adenosine. While en route to hospital, her BS was taken and read "HIGH." Lin states that her chest pain resolved after the adenosine. She reports these types of episodes before but has never had it so severe or prolonged. Of note, Lin follows somewhat inconsistently at the clinic. She is also inconsistent with her insulin administration. She was referred to the vpk teacher but has not connected with her as yet. Date of Admission Jul 20, 2017 at 10:12 pm Date of Discharge July 11, 2017 Time Seen by Provider: 08:00 Attending Physician Nela Luna MD Admitting Physician Rob,[facility] Consult Dr Hummel Allergies and Home Medications Allergies Coded Allergies: No Known Drug Allergies (Unverified , 09/25/11) Home Medications Cephalexin 500 Mg Tablet, 500 MG PO BID, #14 Ref 0 Prescribed by: HEIDY GARCIA on 06/03/17 1323 Gabapentin 300 Mg Capsule, (Reported) Insulin Aspart 100 Unit/1 Ml Susp, 20 UNIT SQ AC, #10 Prescribed by: NELA LUNA on 07/21/17 1023 Insulin Detemir 100 Unit/1 Ml Insuln.pen, (Reported) Past Mrspbqn-Socbrj-Bxvemo Hx Patient Social History Alcohol Use: Denies Use Recreational Drug Use: No Smoking Status: Current Someday Smoker Type Used: Cigarettes 2nd Hand Smoke Exposure: Yes Physical Abuse Screen: No Sexual Abuse: No Recent Foreign Travel: No Contact w/other who traveled: No Recent Hopitalizations: No Recent Infectious Disease Expo: No Immunizations Up To Date Tetanus Booster (TDap): More than 5yrs Pediatric: No Date of Pneumonia Vaccine: Sep 26, 2011 Date of Influenza Vaccine: May 22, 2017 Seasonal Allergies Seasonal Allergies: No Surgeries Yes Gallbladder Respiratory No Cardiovascular Yes (TACHYCARDIA BY HISTORY ) Heart Murmur Neurological No Reproductive System : No Hx Reproductive Disorders: No Sexually Transmitted Disease: No HIV/AIDS: No 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: 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 Genitourinary Yes UTI-Chronic Gastrointestinal Yes (S/P LÓPEZ) Gall Bladder Disease Musculoskeletal No Endocrine History of Endocrine Disorders: Yes (DX AGE 13) Endocrine Disorders: Diabetes, Insulin dep HEENT History of HEENT Disorders: No Cancer No Psychosocial History of Psychiatric Problem: Yes (SUICIDE ATTEMPT AT AGE 13 Y/O) Behavioral Health Disorders: Anxiety, Suicide Attempts, Depression Integumentary History of Skin or Integumenta: No Blood Transfusions History of Blood Disorders: Yes (ANEMIA) Adverse Reaction to a Blood Tr: No Family Medical History Significant Family History: No Pertinent Family Hx Family Hx: Family history: Diabetes mellitus 19 MOTHER Constitutional: see HPI All Other Systems Reviewed Negative Unless Noted: Yes Physical Exam Vital Signs Vital Sign - Last 12Hours 07/20/17 20:21 Temp 97.3 Pulse 103 Resp 20 B/P (MAP) 99/66 Pulse Ox 95 O2 Delivery Room Air Capillary Refill : Less Than 3 Seconds General Appearance: No Apparent Distress, WD/WN HEENT: PERRL/EOMI, Normal ENT Inspection, Pharynx Normal Neck: Full Range of Motion, Normal Inspection, Non Tender, Supple, Carotid Bruit Respiratory: Chest Non Tender, Lungs Clear, Normal Breath Sounds, No Accessory Muscle Use, No Respiratory Distress Cardiovascular: Regular Rate, Rhythm, No Edema, No Gallop, No JVD, No Murmur, Normal Peripheral Pulses Gastrointestinal: Normal Bowel Sounds, No Organomegaly, No Pulsatile Mass, Non Tender, Soft Back: Normal Inspection, No CVA Tenderness, No Vertebral Tenderness Extremity: Normal Capillary Refill, Normal Inspection, Normal Range of Motion, Non Tender, No Calf Tenderness, No Pedal Edema Neurologic/Psychiatric: Alert, Oriented x3, No Motor/Sensory Deficits, Normal Mood/Affect Skin: Normal Color, Warm/Dry Clinical Quality Measures DVT/VTE Risk/Contraindication: Risk Factor Score Per Nursin RFS Level Per Nursing on Admit: 1=Low/No VTE PPX Short Stay Diagnosis Discharge Diagnosis-Short Stay Admission Diagnosis: PAROXYSMAL SUPRAVENTRICULAR TACHYCARDIA TYPE 2 DIABETES, UNCONTROLLED WITH OTHER COMPLICATION BMI 30 NONCOMPLIANCE WITH MEDICAL THERAPY Final Discharge Diagnosis: PAROXYSMAL SUPRAVENTRICULAR TACHYCARDIA TYPE 2 DIABETES, UNCONTROLLED WITH OTHER COMPLICATION BMI 30 NONCOMPLIANCE WITH MEDICAL THERAPY Conclusion Labs Laboratory Tests 07/20/17 20:13: Serum Test, Qualitative NEGATIVE 07/20/17 20:15: White Blood Count 7.5, Red Blood Count 3.85L, Hemoglobin 12.3, Hematocrit 35, Mean Corpuscular Volume 92, Mean Corpuscular Hemoglobin 32, Mean Corpuscular Hemoglobin Concent 35, Red Cell Distribution Width 11.6, Platelet Count 212, Mean Platelet Volume 12.6H, Neutrophils (%) (Auto) 66, Lymphocytes (%) (Auto) 28 , Monocytes (%) (Auto) 5, Eosinophils (%) (Auto) 1, Basophils (%) (Auto) 0, Neutrophils # (Auto) 4.9, Lymphocytes # (Auto) 2.1, Monocytes # (Auto) 0.4, Eosinophils # (Auto) 0.1, Basophils # (Auto) 0.0, D-Dimer 0.81H, Glucometer > 600*H 07/20/17 20:40: Sodium Level 132L, Potassium Level 3.8, Chloride Level 100, Carbon Dioxide Level 20L, Anion Gap 12, Blood Urea Nitrogen 11, Creatinine 1.24, Estimat Glomerular Filtration Rate 50, BUN/Creatinine Ratio 9, Glucose Level 795*H, Calcium Level 8.8, Magnesium Level 2.0, Total Bilirubin 0.5, Aspartate Amino Transf (AST/SGOT) 65H, Alanine Aminotransferase (ALT/SGPT) 44, Alkaline Phosphatase 120, Troponin I < 0.30, Total Protein 6.7, Albumin 3.6, Thyroid Stimulating Hormone (TSH) 1.76, Free Thyroxine 0.89 07/20/17 21:02: Glucometer 555*H 07/20/17 21:39: Blood Gas Puncture Site RT RAD, Blood Gas Patient Temperature 97.3, Arterial Blood pH 7.36L, Arterial Blood Partial Pressure CO2 35, Arterial Blood Partial Pressure O2 93, Arterial Blood HCO3 20L, Arterial Blood Total CO2 20.9L, Arterial Blood Oxygen Saturation 99, Arterial Blood Base Excess -4.8L, Kevin Test YES-POS, Blood Gas Ventilator Setting NO, Blood Gas Inspired Oxygen ROOM AIR 07/20/17 21:44: Urine Color YELLOW, Urine Clarity CLEAR, Urine pH 6.5, Urine Specific [place] 1.005L, Urine Protein 1+H, Urine Glucose (UA) 4+H, Urine Ketones 1+H, Urine Nitrite POSITIVEH, Urine Bilirubin NEGATIVE, Urine Urobilinogen NORMAL, Urine Leukocyte Esterase NEGATIVE, Urine RBC (Auto) NEGATIVE, Urine RBC NONE, Urine WBC RARE, Urine Crystals NONE, Urine Bacteria TRACE, Urine Casts NONE, Urine Mucus NEGATIVE, Urine Culture Indicated YES, Urine Opiates Screen NEGATIVE, Urine Oxycodone Screen NEGATIVE, Urine Methadone Screen NEGATIVE, Urine Propoxyphene Screen NEGATIVE, Urine Barbiturates Screen NEGATIVE, Ur Tricyclic Antidepressants Screen NEGATIVE, Urine Phencyclidine Screen NEGATIVE, Urine Amphetamines Screen NEGATIVE, Urine Methamphetamines Screen NEGATIVE, Urine Benzodiazepines Screen NEGATIVE, Urine Cocaine Screen NEGATIVE, Urine Cannabinoids Screen NEGATIVE 07/20/17 21:50: Glucometer 397H 07/20/17 23:05: Glucometer 235H 07/20/17 23:50: White Blood Count 7.8, Red Blood Count 3.62L, Hemoglobin 11.4L, Hematocrit 33L, Mean Corpuscular Volume 91, Mean Corpuscular Hemoglobin 32, Mean Corpuscular Hemoglobin Concent 34, Red Cell Distribution Width 11.4, Platelet Count 181, Mean Platelet Volume 11.7H, Neutrophils (%) (Auto) 55, Lymphocytes (%) (Auto) 38 , Monocytes (%) (Auto) 6, Eosinophils (%) (Auto) 1, Basophils (%) (Auto) 0, Neutrophils # (Auto) 4.3, Lymphocytes # (Auto) 2.9, Monocytes # (Auto) 0.5, Eosinophils # (Auto) 0.1, Basophils # (Auto) 0.0, Sodium Level 138, Potassium Level 3.4L, Chloride Level 105, Carbon Dioxide Level 22, Anion Gap 11, Blood Urea Nitrogen 10, Creatinine 0.77, Estimat Glomerular Filtration Rate > 60, BUN/ Creatinine Ratio 13, Glucose Level 207H, Hemoglobin A1c 12.5H, Calcium Level 8.5 07/20/17 23:54: Glucometer 208H 07/21/17 01:05: Glucometer 109 07/21/17 01:34: Glucometer 103 07/21/17 02:08: Glucometer 151H 07/21/17 05:00: Sodium Level 137, Potassium Level 3.9, Chloride Level 107, Carbon Dioxide Level 22, Anion Gap 8, Blood Urea Nitrogen 10, Creatinine 0.64, Estimat Glomerular Filtration Rate > 60, BUN/Creatinine Ratio 16, Glucose Level 248H, Calcium Level 8.0L, Phosphorus Level 3.3, Magnesium Level 1.7L, Troponin I < 0.30, B- Type Natriuretic Peptide 100.2H 07/21/17 06:25: Glucometer 213H Conclusion/Plan Ms Medina was admitted for observation following the tachycardia and also for the high blood sugar. Her heart rate remained sinus and at an appropriate rate through the observation. Dr Hummel was consulted. We will arrange for a stress test as an outpatient, and she will follow up with him. He started her on metoprolol while in house. Anticipates she will need ablation. Echo today was normal as was BNP. Lin's BS improved nicely with levemir and SSI. This confirms that compliance with therapy would improve her BS. I am not going to change anything, and she should follow up with Dr Bermeo and Fiona Garza regarding her diabetes. Copy Copies To 1: TRISTAN BERMEO MD, JULIE A MD Jul 21, 2017 09:52
[2017-07-21] MEDS ORDERED: INSU100V16 SQ (10:23)
--- NOTE | 2017-07-21 11:50 | Consultation-Cardiology ---
HPI-Cardiology Cardiology Consultation: Date of Consultation 07/21/17 Date of Admission Attending Physician Nela Luna MD Admitting Physician Rob,[facility] Consulting Physician Falguni LEVINE MD HPI: Time Seen by Provider: 11:50 Chief Complaint: palpitations, chest pain this is a 32-year-old lady with history of diabetes and active smoking. She presents with chest pain, palpitation and dizziness. She called EMS and was found to have a heart rate of 211. Narrow complex tachycardia. The chest pain and palpitations went away with 6 mg of adenosine IV bolus that was given in the ER. She also had some shortness of breath. She denies exertional shortness of breath as well as recurrent chest pain episodes. Review of Systems-Cardiology Review of Systems Constitutional: No As described under HPI, No no symptoms reported, No chills, No fever, No lightheadedness, No malaise, No tiredness, No weight loss, No weight gain, No other Eyes: No As described under HPI, No no symptoms reported, No blindness, No blurred vision, No contact lenses, No drainage, No decreased acuity, No foreign body sensation, No glasses, No inflammation, No pain, No photophobia, No previous injury, No shadows, No tunnel vision, No other, No vision change Ears/Nose/Throat: No As described under HPI, No no symptoms reported, No chronic hearing loss, No epistaxis, No ear discharge, No ear pain, No loose teeth, No mouth pain, No mouth swelling, No nasal drainage, No nose pain, No recent hearing loss, No throat pain, No throat swelling, No ulcerations, No other Respiratory: shortness of breath Cardiovascular: chest pain, palpitations Gastrointestinal: No no symptoms reported, No As described under HPI, No abdomen distended, No abdominal pain, No blood streaked bowels, No constipation , No diarrhea, No difficulty swallowing, No nausea, No poor appetite, No poor fluid intake, No rectal bleeding, No vomiting, No other, No nausea/vomiting/ diarrhea, No stool coloration changes Genitourinary: No no symptoms reported, No As described under HPI, No burning, No dysuria, No discharge, No frequency, No flank pain, No hematuria, No incontinence, No pain, No urgency, No other, No urine frequency changes, No urine coloration changes Musculoskeletal: No no symptoms reported, No As describe under HPI, No back pain, No gout, No joint pain, No joint swelling, No muscle pain, No muscle stiffness, No neck pain, No other Skin: No no symptoms reported, No As described under HPI, No change in color, No change in hair/nails, No dryness, No lesions, No lumps, No rash, No other, No skin related problems, No ulcerations, No rash on exposed areas, No ulcerations on exposed areas Psychiatric/Neurological: No no symptoms reported, No As described under HPI, No anxiety, No depression, No emotional problems, No headache, No numbness, No pre-existing deficit, No seizure, No tingling, No tremors, No weakness, No other , No focal weakness, No syncope Hematologic: No no symptoms reported, No As described under HPI, No anemia, No blood clots, No easy bleeding, No easy bruising, No swollen glands, No other, No bleeding abnormalities All Other Systems Reviewed Negative Unless Noted: Yes GLN-Pyvcor-Gogevg Hx Patient Social History Alcohol Use: Denies Use Recreational Drug Use: No Smoking Status: Current Someday Smoker Type Used: Cigarettes 2nd Hand Smoke Exposure: Yes Recent Foreign Travel: No Recent Infectious Disease Expo: No Hospitalization with Isolation: Denies Physical Abuse Screen: No Sexual Abuse: No Immunizations Up To Date Tetanus Booster (TDap): More than 5yrs Date of Pneumonia Vaccine: Sep 26, 2011 Date of Influenza Vaccine: May 22, 2017 Past Medical History PMH As described under Assessment. Family Medical History Family History: Family history: Diabetes mellitus 19 MOTHER Allergies and Home Medications Allergies Coded Allergies: No Known Drug Allergies (Unverified , 09/25/11) Home Medications Cephalexin 500 Mg Tablet, 500 MG PO BID, #14 Ref 0 Prescribed by: HEIDY GARCIA on 06/03/17 1323 Gabapentin 300 Mg Capsule, (Reported) Insulin Aspart 100 Unit/1 Ml Susp, 20 UNIT SQ AC, #10 Prescribed by: NELA LUNA on 07/21/17 1023 Insulin Detemir 100 Unit/1 Ml Insuln.pen, (Reported) Insulin Glargine,Hum.rec.anlog 100 Unit/1 Ml Vial, 60 UNIT SQ HS, (Reported) Physical Exam-Cardiology Physical Exam Vital Signs/I&O Vital Sign - Last 12Hours 11/30/07/21/17 07/21/17 07/21/17 00:00 01:00 01:00 02:00 Temp 97.0 Pulse 86 93 89 91 Resp 16 13 B/P (MAP) 113/79 108/76 89/54 Pulse Ox 100 100 99 O2 Delivery Room Air Room Air Room Air 07/21/17 07/21/17 07/21/17 07/21/17 03:00 04:00 05:00 06:00 Pulse 89 91 98 82 Resp 14 B/P (MAP) 101/68 100/69 105/69 97/64 Pulse Ox 99 99 100 100 O2 Delivery Room Air Room Air Room Air Room Air 07/21/17 07/21/17 07/21/17 07/21/17 07:00 07:00 08:00 08:00 Temp 97.0 Pulse 80 82 82 B/P (MAP) 99/73 104/71 Pulse Ox 99 100 O2 Delivery Room Air Room Air Room Air 07/21/17 07/21/17 07/21/17 09:00 10:00 11:00 Pulse 84 82 84 B/P (MAP) 101/71 (81) 103/70 (81) 107/73 (84) Pulse Ox 100 100 99 O2 Delivery Room Air Room Air Room Air Capillary Refill : Less Than 3 Seconds Constitutional: No appears stated age, No AAO x 3, No apparent distress, No PERRL, No well-developed, No well-nourished, No other HEENT: No PERRL, No normal ENT inspection, No TMs normal, No pharynx normal, No scleral icterus (R), No scleral icterus (L), No pale conjunctivae (R), No pale conjunctivae (L), No photophobia, No TM abnormal (R), No TM abnormal (L), No pharyngeal erythema, No tonsillar exudate, No other, No discharge, No EOMI, No hearing is well preserved, No hard of hearing, No oral hygience is good, No ulceration, No xanthelasmas are seen Neck: No non-tender, No full range of motion, No supple, No normal inspection, No carotid bruit, No limited range of motion, No lymphadenopathy (R), No lymphadenopathy (L), No tender lateral, No tender midline, No thyromegaly, No other, No carotid pulses are 2 + bilaterally, No with good upstrokes Respiratory: No accessory muscle use, No respiratory distress, No chest tender , No chest expansion is symmetric, No chest is bilaterally symmetric, No lungs clear to percussion, No lungs clear to auscultation, No crackles, No rhonchi, No rales, No stridor, No wheezing, No pleural rub, No other Cardiovascular: No regular rate-rhythm, No irregularly irregular, No extra beats, No parasternal heave is noted, No JVD, No edema, No bradycardia, No tachycardia, No point of maximal impulse, No cardiac thrills are palpable, No S1 and S2, No gallop/S3, No gallop/S4, No diastolic murmur, No systolic murmur, No friction rub, No click, No other Gastrointestinal: No tender, No soft, No round, No distended, No pulsatile mass , No organomegaly, No guarding, No rebound, No tenderness, No hernia, No mass, No audible bowel sounds, No abnormal bowel sounds, No abdominal bruits, No spleenomegaly, No other Rectal: deferred Extremities: No normal range of motion, No non-tender, No normal inspection, No pedal edema, No calf tenderness, No normal capillary refill, No pelvis stable , No calf tenderness, No inflammation, No pedal edema, No slow capillary refill , No swelling, No other, No abrasion, No clubbing, No cyanosis, No ecchymosis, No laceration, No no lower extremity edema bilateral, No significant edema, No tenderness, No wound Neurologic/Psychiatric: No pecan gatherer II-XII nml as tested, No no motor/sensory deficits, No alert, No normal mood/affect, No oriented x 3, No abnormal cerebellar tests, No abnormal pecan gatherer II-XII, No abnormal gait, No aphasia, No EOM palsy, No facial droop, No motor weakness, No sensory deficit, No depressed affect, No disoriented x 3, No other, No grossly intact, No power is 5/5 both on sides Skin: No normal color, No warm/dry, No cyanosis, No cool, No diaphoresis, No damp, No ecchymosis, No jaundice, No mottled, No pallor, No rash, No tattoos/ piercings, No ulcerations, No rash on exposed areas, No ulcerations on exposed areas, No other Data Review Labs Laboratory Tests 07/20/17 20:13: Serum Test, Qualitative NEGATIVE 07/20/17 20:15: White Blood Count 7.5, Red Blood Count 3.85L, Hemoglobin 12.3, Hematocrit 35, Mean Corpuscular Volume 92, Mean Corpuscular Hemoglobin 32, Mean Corpuscular Hemoglobin Concent 35, Red Cell Distribution Width 11.6, Platelet Count 212, Mean Platelet Volume 12.6H, Neutrophils (%) (Auto) 66, Lymphocytes (%) (Auto) 28 , Monocytes (%) (Auto) 5, Eosinophils (%) (Auto) 1, Basophils (%) (Auto) 0, Neutrophils # (Auto) 4.9, Lymphocytes # (Auto) 2.1, Monocytes # (Auto) 0.4, Eosinophils # (Auto) 0.1, Basophils # (Auto) 0.0, D-Dimer 0.81H, Glucometer > 600*H 07/20/17 20:40: Sodium Level 132L, Potassium Level 3.8, Chloride Level 100, Carbon Dioxide Level 20L, Anion Gap 12, Blood Urea Nitrogen 11, Creatinine 1.24, Estimat Glomerular Filtration Rate 50, BUN/Creatinine Ratio 9, Glucose Level 795*H, Calcium Level 8.8, Magnesium Level 2.0, Total Bilirubin 0.5, Aspartate Amino Transf (AST/SGOT) 65H, Alanine Aminotransferase (ALT/SGPT) 44, Alkaline Phosphatase 120, Troponin I < 0.30, Total Protein 6.7, Albumin 3.6, Thyroid Stimulating Hormone (TSH) 1.76, Free Thyroxine 0.89 07/20/17 21:02: Glucometer 555*H 07/20/17 21:39: Blood Gas Puncture Site RT RAD, Blood Gas Patient Temperature 97.3, Arterial Blood pH 7.36L, Arterial Blood Partial Pressure CO2 35, Arterial Blood Partial Pressure O2 93, Arterial Blood HCO3 20L, Arterial Blood Total CO2 20.9L, Arterial Blood Oxygen Saturation 99, Arterial Blood Base Excess -4.8L, Kevin Test YES-POS, Blood Gas Ventilator Setting NO, Blood Gas Inspired Oxygen ROOM AIR 07/20/17 21:44: Urine Color YELLOW, Urine Clarity CLEAR, Urine pH 6.5, Urine Specific [place] 1.005L, Urine Protein 1+H, Urine Glucose (UA) 4+H, Urine Ketones 1+H, Urine Nitrite POSITIVEH, Urine Bilirubin NEGATIVE, Urine Urobilinogen NORMAL, Urine Leukocyte Esterase NEGATIVE, Urine RBC (Auto) NEGATIVE, Urine RBC NONE, Urine WBC RARE, Urine Crystals NONE, Urine Bacteria TRACE, Urine Casts NONE, Urine Mucus NEGATIVE, Urine Culture Indicated YES, Urine Opiates Screen NEGATIVE, Urine Oxycodone Screen NEGATIVE, Urine Methadone Screen NEGATIVE, Urine Propoxyphene Screen NEGATIVE, Urine Barbiturates Screen NEGATIVE, Ur Tricyclic Antidepressants Screen NEGATIVE, Urine Phencyclidine Screen NEGATIVE, Urine Amphetamines Screen NEGATIVE, Urine Methamphetamines Screen NEGATIVE, Urine Benzodiazepines Screen NEGATIVE, Urine Cocaine Screen NEGATIVE, Urine Cannabinoids Screen NEGATIVE 07/20/17 21:50: Glucometer 397H 07/20/17 23:05: Glucometer 235H 07/20/17 23:50: White Blood Count 7.8, Red Blood Count 3.62L, Hemoglobin 11.4L, Hematocrit 33L, Mean Corpuscular Volume 91, Mean Corpuscular Hemoglobin 32, Mean Corpuscular Hemoglobin Concent 34, Red Cell Distribution Width 11.4, Platelet Count 181, Mean Platelet Volume 11.7H, Neutrophils (%) (Auto) 55, Lymphocytes (%) (Auto) 38 , Monocytes (%) (Auto) 6, Eosinophils (%) (Auto) 1, Basophils (%) (Auto) 0, Neutrophils # (Auto) 4.3, Lymphocytes # (Auto) 2.9, Monocytes # (Auto) 0.5, Eosinophils # (Auto) 0.1, Basophils # (Auto) 0.0, Sodium Level 138, Potassium Level 3.4L, Chloride Level 105, Carbon Dioxide Level 22, Anion Gap 11, Blood Urea Nitrogen 10, Creatinine 0.77, Estimat Glomerular Filtration Rate > 60, BUN/ Creatinine Ratio 13, Glucose Level 207H, Hemoglobin A1c 12.5H, Calcium Level 8.5 07/20/17 23:54: Glucometer 208H 07/21/17 01:05: Glucometer 109 07/21/17 01:34: Glucometer 103 07/21/17 02:08: Glucometer 151H 07/21/17 05:00: Sodium Level 137, Potassium Level 3.9, Chloride Level 107, Carbon Dioxide Level 22, Anion Gap 8, Blood Urea Nitrogen 10, Creatinine 0.64, Estimat Glomerular Filtration Rate > 60, BUN/Creatinine Ratio 16, Glucose Level 248H, Calcium Level 8.0L, Phosphorus Level 3.3, Magnesium Level 1.7L, Troponin I < 0.30, B- Type Natriuretic Peptide 100.2H 07/21/17 06:25: Glucometer 213H 07/21/17 11:14: Glucometer 176H ECG Impression ECG Initial ECG Rhythm: Normal Sinus A/P-Cardiology Assessment/Admission Diagnosis uncontrolled diabetes, chest pain, shortness of breath, PSVT Plan treatment of uncontrolled diabetes is deferred to the primary team. Chest pain and shortness of breath: Patient is not in congestive heart failure. BNP is negative. Echocardiogram. Patient will have a nuclear stress test as an outpatient. PSVT: First episode. Will start metoprolol. Will follow as an outpatient. Will likely require ablation in the future. wide-complex tach tachycardia was also noted which was likely secondary to aberrancy. Patient can follow with me as an outpatient in 2-3 weeks. Thank you for your consultation. Please call me if you have any questions. Zenobia Levine MD, FACP, FACC, FSCAI, FHRS, CCDS Interventional Cardiology Cardiac Electrophysiology Vascular Medicine and Endovascular Interventions Clinical Quality Measures DVT/VTE Risk/Contraindication: Risk Factor Score Per Nursin RFS Level Per Nursing on Admit: 1=Low/No VTE PPX Falguni LEVINE MD Jul 21, 2017 11:50 am
[2017-07-21] MEDS ORDERED: MAGNESIUM 1 GM/100 ML IVPB 100 ML IV SCH (15:00)
--- NOTE | 2017-07-21 15:38 | Discharge Instructions ---
Discharge [facility] Discharge Medications New, Converted or Re-Newed RX: Other New Medications: Insulin Aspart (Novolog) 100 Unit/1 Ml Susp 20 UNIT SQ AC, #10 ML Continued Medications: Cephalexin (Cephalexin) 500 Mg Tablet 500 MG PO BID, #14 TAB 0 Refills Gabapentin (Gabapentin) 300 Mg Capsule Insulin Detemir (Levemir Flextouch) 100 Unit/1 Ml Insuln.pen Discontinued Medications: Insulin Glargine,Hum.rec.anlog (Lantus) 100 Unit/1 Ml Vial 60 UNIT SQ HS, VIAL Patient Instructions Goal/Follow Up Appt: DR LEVINE 08/03 AT 10:30 DR BERMEO 07/28 AT 1:20 Patient Instructions: 1. please call the clinic to arrange an appointment with Fiona Garza, the clinical nurse educator 2. please take your levemir and Novolog as prescribed. 3. finish the antibiotics for your teeth - the full bottle of pills. 4. follow up with the tests and appointments we have arranged for you. Return to The Hospital For: shortness of breath, chest pain or palpitations Activity & Diet Discharge Diet: ADA Diet Activity as Tolerated: Yes Copy Copies To 1: TRISTAN BERMEO MD, JULIE A MD Jul 21, 2017 10:27 am
[2017-07-22] MEDS ORDERED: ENOXAPARIN 40 MG/0.4 ML (LOVENOX) SYR SC SCH (09:00)
== END 2017-07-21 10:23 | disposition home or self-care (01) ==
LOC: EDUNIT# 20:10 → ER 20:11 → ICU 22:12 → UNDOADMOB 22:12 → ICU 22:25 → UNDODISOB 07-21 16:50
PROVIDERS: ADMIT Pediatrics; ATTEND Pediatrics
DX: R07.9 Chest pain, unspecified (principal); R06.02 Shortness of breath; E10.65 Type 1 diabetes mellitus with hyperglycemia; F17.210 Nicotine dependence, cigarettes, uncomplicated; I47.1 Supraventricular tachycardia; Z79.4 Long term (current) use of insulin; Z79.899 Other long term (current) drug therapy; F32.9 Major depressive disorder, single episode, unspecified; F41.9 Anxiety disorder, unspecified; Z91.19 Patient's noncompliance with other medical treatment and regimen
CPT/HCPCS: 36415; 71010; 71275; 80048; 80053; 80306; 81000; 82805; 82962; 83036; 83735; 83880; 84100; 84439; 84443; 84484; 84703; 85025; 85379; 87088; 93005; 93306; G0378

== ENCOUNTER 2017-12-23 09:17 | Emergency (ER) | payer SELFPAY ==
[~2017-12-23] VITALS: Ht 162.6 cm; Wt 89.4 kg
[~2017-12-23 09:17] MED LIST changes: -INSU100I29; +INSU100I29 SC; +INSU100V16 SQ
--- OUTSIDE RECORDS SUMMARY | 2017-12-23 09:23 | XMS REPORT ---
Author Author TRISTAN BERMEO [facility] Address [address] [place] [address] Care Team Providers Care Icer Air Condition[employer] Name Role Phone TRISTAN BERMEO Unavailable PROBLEMS Type Condition ICD9-CM Code PFO31-EY Code Onset Dates Condition Status SNOMED Code Problem Type 2 diabetes mellitus with diabetic polyneuropathy E11.42 Active 12579985 Problem Other chronic pain G89.29 Active 02603122 Problem Diabetic polyneuropathy associated with type 2 diabetes mellitus E11.42 Active 37093460 Problem [facility] current use of insulin Z79.4 Active 814300627 Problem Venous insufficiency I87.2 Active 26454124 Problem Supraventricular arrhythmia I49.9 Active [id number] ALLERGIES No Information ENCOUNTERS Encounter Location Date Diagnosis [address] [id number] [place] [address] 40272- 4228 Jan, [place] [id number] [place] [address] 54429- 7683 December, [facility] [id number] [place] [address] 20788- 4376 Nov, Neuritis M79.2 [facility] [id number] [place] [address] 46798- 2285 Nov, [facility] [id number] [place] [address] 55790- 6518 Oct, Impingement syndrome, shoulder, left M75.42 [facility] [id number] [place] [address] 08491- 2516 Oct, Diabetic polyneuropathy associated with type 2 diabetes mellitus E11.42 [facility] [id number] [place] [address] 48808- 2211 Oct, [facility] [id number] [address] 3917 Sep, Type 2 diabetes mellitus with diabetic polyneuropathy E11.42 ; [facility] current use of insulin Z79.4 ; Pain in left shoulder M25.512 and Other chronic pain G89.29 [facility] [place] [facility] [address] [id number] Aug, Dental examination Z01.20 [facility] [place] [id number] [place] [address] [id number] Aug, Dental examination Z01.20 [facility] [id number] [place] [address] 83950- 7315 Jul, [facility] [id number] [place] [address] 23238- 7770 Jul, Type 2 diabetes mellitus without complications E11.9 ; Diabetic polyneuropathy associated with type 2 diabetes mellitus E11.42 and Venous insufficiency I87.2 [facility] [id number] [place] [address] 61473- 7540 Jul, [facility] [id number] [place] [address] 03593- 0510 Jul, Type 2 diabetes mellitus without complications E11.9 and Supraventricular arrhythmia I49.9 [facility] [id number] [place] [address] 07166 -7666 Jun, Candidiasis of female genitalia B37.3 [facility] [id number] [place] [address] 19867- 4780 Jun, [facility] [id number] [place] [address] 28061- 8336 Jun, [facility] [id number] [place] [address] 53074- 3555 Jun, [facility] [id number] [place] [address] 76672- 1880 May, Type 1 diabetes mellitus with hyperglycemia E10.65 [facility] [id number] [address] 9575 May, Type 2 diabetes mellitus without complications E11.9 [facility] [id number] [place] [address] 65538- 0441 May, [facility] [id number] [place] [address] 58843- 4153 May, [facility] [id number] [place] [address] 73076- 9111 May, Type 2 diabetes mellitus without complications E11.9 ; Encounter for immunization Z23 and Diabetic polyneuropathy associated with type 2 diabetes mellitus E11.42 [facility] [id number] [place] [address] 53625- 9132 May, [facility] [id number] [place] [address] 30935- 9853 Apr, [facility] [id number] [place] [address] 32546- 3966 Mar, [facility] [id number] [place] [address] 77891 -8623 Mar, [facility] [id number] [place] [address] Feb, [facility] [id number] [place] [address] 27857 -0935 Feb, Screen for STD (sexually transmitted disease) Z11.3 ; Vaginal itching L29.8 ; Urine abnormality R82.90 ; Acute vaginitis N76.0 and Acute cystitis with hematuria N30.01 [facility] [id number] [place] [address] 56239 -6907 Oct, Visit for TB skin test Z11.1 and Screening for tuberculosis Z11.1 [facility] [id number] [place] [address] [id number] Aug, Dental examination Z01.20 [facility] [id number] [place] [address] 74139- 0607 Jun, [facility] [id number] [place] [address] 47727- 5432 Jun, [facility] [id number] [place] [address] 61083- 8544 May, Contusion of periocular region, unspecified laterality, subsequent encounter S00.10XD [facility] [id number] [place] [address] 11938- 3852 May, [place] [id number] [place] [address] 61656- 3643 Apr, Major depressive disorder, recurrent episode, moderate F33.1 [place] [id number] [place] [address] 32742- 0530 Mar, Major depressive disorder, recurrent episode, moderate F33.1 [place] [id number] [place] [address] 69746- 5765 Mar, Type 1 diabetes mellitus with hyperglycemia E10.65 [place] [id number] [place] [address] 18945- 3508 Jan, Type 1 diabetes mellitus with hyperglycemia E10.65 [place] [id number] [place] [address] 27626- 7255 December, Type 2 diabetes mellitus without complications E11.9 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 [place] [address] [place] [address] 97671- 1464 Jan, [place] [id number] [place] [address] 38700- 0255 Nov, [place] [id number] [place] [address] 23762- 2674 Nov, [place] [id number] [place] [address] 18349- 3273 Oct, [place] [id number] [place] [address] 77973- 0826 Oct, [facility] [place] [facility] [address] [id number] [place] [address]- 2519 Oct, [facility] [place] [facility] [address] [id number] [place] [address]- 6941 Oct, [facility] [place] [facility] [address] [id number] [place] [address]- 0875 Oct, [facility] [place] [facility] [address] [id number] [place] [address]- 7815 Oct, [facility] [place] [facility] [address] [id number] [place] [address]- 0757 Oct, [facility] [place] [facility] [address] [id number] [place] [address]- 9746 Oct, [facility] [place] [facility] [address] [id number] [place] [address]- 6572 Jun, [facility] [place] [facility] [address] [id number] [place] [address]- 3438 Jun, [facility] [place] [facility] [address] [id number] [place] [address]- 4411 Jun, [facility] [place] [facility] [address] [id number] [place] [address]- 8351 Jun, [facility] [place] [facility] [address] [id number] [place] [address]- 5705 Jun, [facility] [place] [facility] [address] [id number] [place] [address]- 6907 Jun, [facility] [place] [facility] [address] [id number] [place] [address]- 3925 Jun, [facility] [place] [facility] [address] [id number] [place] [address]- 5309 Jun, [facility] [place] [facility] [address] [id number] [place] [address]- 4412 Jun, [facility] [place] [facility] [address] [id number] [place] [address]- 3880 Jun, [facility] [place] [facility] [address] [id number] [place] [address]- 1111 Jun, [facility] [place] [facility] [address] [id number] [place] 2261 Jun, [facility] [place] [facility] [address] [id number] [place] [address]- 4347 May, [facility] [place] [facility] [address] [id number] [place] [address]- 8785 May, [facility] [place] [facility] [address] [id number] [place] [address]- 6634 May, [facility] [place] [facility] [address] [id number] [place] [address]- 9609 May, [facility] [place] [facility] [address] [id number] [place] [address]- 9977 May, [facility] [place] [facility] [address] [id number] [place] [address]- 9858 May, [facility] [place] [facility] [address] [id number] [place] [address]- 1961 May, [facility] [place] [facility] [address] [id number] [place] [address]- 0718 May, [facility] [place] [facility] [address] [id number] [place] [address]- 4472 May, [facility] [place] [facility] [address] [id number] [place] 9706 May, [facility] [place] [facility] [address] [id number] [place] [address]- 4783 Apr, [facility] [place] [facility] [address] [id number] [place] [address]- 2906 Apr, [facility] [place] [facility] [address] [id number] [place] 9300 Mar, [facility] [place] [facility] [address] [id number] [place] [address]- 8752 Mar, [facility] [place] [facility] [address] [id number] [place] [address]- 8704 Mar, [facility] [place] [facility] [address] [id number] [place] [address]- 2174 Mar, [facility] [place] [facility] [address] [id number] [place] [address]- 0679 Mar, [facility] [place] [facility] [address] [id number] [place] [address]- 0757 Mar, [facility] [place] [facility] [address] [id number] [place] [address]- 0946 Feb, [facility] [place] [facility] [address] [id number] [place] [address]- 0690 Feb, [facility] [place] [facility] [address] [id number] [place] [address]- 5997 Feb, [facility] [place] [facility] [address] [id number] [place] [address]- 2596 Feb, [facility] [place] [facility] [address] [id number] [place] [address]- 7775 Jan, [facility] [place] [facility] [address] [id number] [place] [address]- 4531 Jan, [facility] [place] [facility] [address] [id number] [place] [address]- 3832 Jan, [facility] [place] [facility] [address] [id number] [place] [address]- 7518 Jan, [facility] [place] [facility] [address] [id number] [place] [address]- 3807 Jan, [facility] [place] [facility] [address] [id number] [place] [address]- 1803 Jan, [facility] [place] [facility] [address] [id number] [place] [address]- 2425 Jan, [facility] [place] [facility] [address] [id number] [place] [address]- 0714 Jan, [facility] [place] [facility] [address] [id number] [place] [address]- 7131 Nov, [facility] [place] [facility] [address] [facility] [id number] [place] [address]- 4723 Nov, [facility] [place] [facility] [address] [id number] [place] [address]- 6470 Oct, [facility] [place] [facility] [address] [id number] [place] [address]- 4679 Oct, [facility] [place] [facility] [address] [facility] [id number] [place] [address]- 4308 Oct, [facility] [place] [facility] [address] [facility] [id number] [place] [address]- 6529 Oct, [facility] [place] [facility] [address] [facility] [id number] [place] [address]- 4370 Oct, [facility] [place] [facility] [address] [facility] [id number] [place] [address]- 0067 Oct, [facility] [place] [facility] [address] [facility] [id number] [place] [address]- 9936 Sep, [facility] [place] [facility] [address] [facility] [id number] [place] [address]- 8644 Sep, [facility] [place] [facility] [address] [facility] [id number] [place] [address]- 2996 Jul, [facility] [place] [facility] [address] [id number] [place] [address]- 1266 Jul, [facility] [place] [facility] [address] [facility] [id number] [place] [address]- 6707 Jun, [facility] [place] [facility] [address] [facility] [id number] [place] [address]- 1626 Jun, [facility] [place] [facility] [address] [id number] [place] [address]- 9845 Jun, [facility] [place] [facility] [address] [id number] [place] [address]- 9687 26 Apr, 2013 [facility] [place] [facility] [address] [id number] [place] [address]- 4367 Feb, [facility] [place] [facility] [address] [id number] [place] [address]- 0888 Jan, [facility] [place] [facility] [address] [id number] [place] [address]- 2850 Jan, [facility] [place] [facility] [address] [id number] [place] [address]- 9817 December, [facility] [place] [facility] [address] [id number] [place] [address]- 8905 December, [facility] [place] [facility] [address] [id number] [place] [address]- 6939 Aug, [facility] [place] [facility] [address] [id number] [place] [address]- 7100 Jun, [facility] [place] [facility] [address] [id number] [place] [address]- 4129 Jun, [facility] [place] [facility] [address] [id number] [place] [address]- 6315 May, [facility] [place] [facility] [address] [id number] [place] [address]- 1459 May, [facility] [place] [facility] [address] [id number] [place] [address]- 8681 17 Apr, 2012 [facility] [place] [facility] [address] [id number] [place] [address]- 1279 10 Apr, 2012 [facility] [place] [facility] [address] [id number] [place] [address]- 1306 06 Apr, 2012 [facility] [place] [facility] [address] [id number] [place] [address]- 8154 Apr, [facility] [place] [facility] [address] [id number] [place] [address]- 7732 Mar, [facility] [place] [facility] [address] [id number] [place] [address]- 9326 Mar, [facility] [place] [facility] [address] [id number] [place] [address]- 0506 Mar, [facility] [place] [facility] [address] [id number] [place] [address]- 1867 Mar, [facility] [place] [facility] [address] [id number] [place] [address]- 3115 Mar, [facility] [place] [facility] [address] [id number] [place] [address]- 9888 Mar, [facility] [place] [facility] [address] [id number] [place] [address]- 0314 Mar, [facility] [place] [facility] [address] [id number] [place] [address]- 0310 Jan, [facility] [place] [facility] [address] [id number] [place] [address]- 0199 Jan, [facility] [place] [facility] [address] [id number] [place] [address]- 2973 Jan, [facility] [place] [facility] [address] [id number] [place] [address]- 4762 December, [facility] [place] [facility] [address] [id number] [place] [address]- 5488 December, [facility] [place] [facility] [address] [id number] [place] [address]- 6419 December, [facility] [place] [facility] [address] [id number] [place] [address]- 3047 December, [facility] [place] [facility] [address] [id number] [place] [address]- 9608 Nov, [facility] [place] [facility] [id number] [address]- 2546 Nov, [facility] [id number] [address]- 2546 Oct, [facility] [address] [address]- 2546 Sep, [facility] [address] [address]- 2546 Sep, [facility] [address] [address]- 2546 Sep, [facility] [address] [address]- 2546 Sep, [facility] [address] [address]- 2546 Sep, [facility] [id number] [id number] Sep, [facility] [id number] [address] 2546 Jun, [facility] [id number] [address] 2546 Feb, IMMUNIZATIONS No Known Immunizations SOCIAL HISTORY Never Assessed REASON FOR VISIT Request samples PLAN OF CARE VITAL SIGNS MEDICATIONS Medication Instructions Dosage Frequency Start Date End Date Duration Status Levemir Flexpen 100 unit/mL (3 mL) Subcutaneous at bedtime 60 units Jun, Active RESULTS No Results PROCEDURES No Known procedures INSTRUCTIONS MEDICATIONS ADMINISTERED No Known Medications MEDICAL (GENERAL) HISTORY Type Description Date Medical History diabetes Hospitalization History one night stay for chest pains and SOB 06/2017
--- OUTSIDE RECORDS SUMMARY | 2017-12-23 09:27 | XMS REPORT | Continuity of Care Document ---
Author Author [facility] Ctr of [facility] Ctr of [facility] Address Unknown Phone Unavailable Allergies Active Description Code Type Severity Reaction Onset Reported/Identified Relationship to Patient Clinical Status Yes No Known Drug Allergies [id number] Drug Allergy Unknown N/A 09/25/2011 Medications There is no data. Problems Date Dx Coded Attending Type Code Diagnosis Diagnosed By 02/15/2011 250.00 Diabetes Ii Controlled (uncomplicated) 02/15/2011 250.00 Diabetes Ii Controlled (uncomplicated) 02/15/2011 250.00 Diabetes Ii Controlled (uncomplicated) 02/15/2011 ANGELA DAVIDSON APRN 250.00 Diabetes Ii Controlled (uncomplicated) 02/15/2011 MYNOR GOLDMAN APRN A 250.00 Diabetes Ii Controlled (uncomplicated) 02/15/2011 HIEU PEDRAZA DO K 250.00 Diabetes Ii Controlled (uncomplicated) 02/15/2011 GALLO BARRON MD 250.00 Diabetes Ii Controlled (uncomplicated) 02/15/2011 JANY PEDRAZA DOA K 250.00 Diabetes Ii Controlled (uncomplicated) 02/15/2011 JANY PEDRAZA DOA K 250.00 Diabetes Ii Controlled (uncomplicated) 02/15/2011 MYNOR GOLDMAN APRN A 250.00 Diabetes Ii Controlled (uncomplicated) 02/15/2011 MYNOR GOLDMAN APRN A 250.00 Diabetes Ii Controlled (uncomplicated) 02/15/2011 TRAE GAO LCPC 250.00 Diabetes Ii Controlled (uncomplicated) 02/15/2011 JANY PEDRAZA DOA K 250.00 Diabetes Ii Controlled (uncomplicated) 02/15/2011 [facility] [place] Bowman 250.00 Diabetes Ii Controlled (uncomplicated) 02/15/2011 RIGOBERTO BRANHAM APRN 250.00 Diabetes Ii Controlled (uncomplicated) 02/15/2011 HIEU PEDRAZA DO K 250.00 Diabetes Ii Controlled (uncomplicated) 02/15/2011 ABBY GARCIA APRN 250.00 Diabetes Ii Controlled (uncomplicated) 02/15/2011 TRISTAN BERMEO MD 250.00 Diabetes Ii Controlled (uncomplicated) 02/15/2011 250.00 Diabetes Ii Controlled (uncomplicated) 02/15/2011 MEGHNA HYMAN DDS 250.00 Diabetes Ii Controlled (uncomplicated) 02/15/2011 MYNOR GOLDMAN APRN A 250.00 Diabetes Ii Controlled (uncomplicated) 02/15/2011 HIEU PEDRAZA DO K 250.00 Diabetes Ii Controlled (uncomplicated) 03/03/2011 112.1 CANDIDIASIS VAGINAL 03/03/2011 112.1 CANDIDIASIS VAGINAL 03/03/2011 112.1 CANDIDIASIS VAGINAL 03/03/2011 ANGELA DAVIDSON APRN 112.1 CANDIDIASIS VAGINAL 03/03/2011 MYNOR GOLDMAN APRN A 112.1 CANDIDIASIS VAGINAL 03/03/2011 JANY PEDRAZA DOA K 112.1 CANDIDIASIS VAGINAL 03/03/2011 BEATRICE WILDE, GALLO [place] 112.1 CANDIDIASIS VAGINAL 03/03/2011 MILO PRADO HIEU K 112.1 CANDIDIASIS VAGINAL 03/03/2011 JANY PEDRAZA DOA K 112.1 CANDIDIASIS VAGINAL 03/03/2011 MYNOR GOLDMAN APRN A 112.1 CANDIDIASIS VAGINAL 03/03/2011 MYNOR GOLDMAN APRN A 112.1 CANDIDIASIS VAGINAL 03/03/2011 [facility], [place] Smith 112.1 CANDIDIASIS VAGINAL 03/03/2011 JANY PERDAZA DOA K 112.1 CANDIDIASIS VAGINAL 03/03/2011 [facility] [place] Bowman 112.1 CANDIDIASIS VAGINAL 03/03/2011 RIGOBERTO BRANHAM APRN 112.1 CANDIDIASIS VAGINAL 03/03/2011 JANY PEDRAZA DOA K 112.1 CANDIDIASIS VAGINAL 03/03/2011 ABBY GARCIA APRN 112.1 CANDIDIASIS VAGINAL 03/03/2011 ELVIE WILDE, TRISTAN 112.1 CANDIDIASIS VAGINAL 03/03/2011 112.1 CANDIDIASIS VAGINAL 03/03/2011 MEGHNA HYMAN DDS 112.1 CANDIDIASIS VAGINAL 03/03/2011 MYNOR GOLDMAN APRN A 112.1 CANDIDIASIS VAGINAL 03/03/2011 JANY PEDRAZA DOA K 112.1 CANDIDIASIS VAGINAL 03/19/2011 311 DEPRESSIVE DISORDER NOS 03/19/2011 311 DEPRESSIVE DISORDER NOS 03/19/2011 311 DEPRESSIVE DISORDER NOS 03/19/2011 ANGELA DAVIDSON APRN 311 DEPRESSIVE DISORDER NOS 03/19/2011 MYNOR GOLDMAN APRN A 311 DEPRESSIVE DISORDER NOS 03/19/2011 PEDRAZA DO, HIEU K 311 DEPRESSIVE DISORDER NOS 03/19/2011 GALLO BARRON MD 311 DEPRESSIVE DISORDER NOS 03/19/2011 PEDRAZA , HIEU K 311 DEPRESSIVE DISORDER NOS 03/19/2011 PEDRAZA DO, HIEU K 311 DEPRESSIVE DISORDER NOS 03/19/2011 SUSI DAVISON MYNOR A 311 DEPRESSIVE DISORDER NOS 03/19/2011 SUSI ADVISON MYNOR A 311 DEPRESSIVE DISORDER NOS 03/19/2011 [facility], [place] B 311 DEPRESSIVE DISORDER NOS 03/19/2011 PEDRAZA DO, HIEU K 311 DEPRESSIVE DISORDER NOS 03/19/2011 [facility] [place] R 311 DEPRESSIVE DISORDER NOS 03/19/2011 RIGOBERTO BRANHAM APRN 311 DEPRESSIVE DISORDER NOS 03/19/2011 PEDRAZA DO, HIEU K 311 DEPRESSIVE DISORDER NOS 03/19/2011 ABBY GARCIA APRN 311 DEPRESSIVE DISORDER NOS 03/19/2011 TRISTAN BERMEO MD 311 DEPRESSIVE DISORDER NOS 03/19/2011 311 DEPRESSIVE DISORDER NOS 03/19/2011 MEGHNA HYMAN DDS 311 DEPRESSIVE DISORDER NOS 03/19/2011 DARION GOLDMAN APRNIDI A 311 DEPRESSIVE DISORDER NOS 03/19/2011 PEDRAZA , HIEU K 311 DEPRESSIVE DISORDER NOS 03/26/2011 250.02 Diabetes Ii Uncontrolled (uncomplicated) 03/26/2011 477.9 RHINITIS 03/26/2011 250.02 Diabetes Ii Uncontrolled (uncomplicated) 03/26/2011 477.9 RHINITIS 03/26/2011 250.02 Diabetes Ii Uncontrolled (uncomplicated) 03/26/2011 477.9 RHINITIS 03/26/2011 ANGELA DAVIDSON APRN 250.02 Diabetes Ii Uncontrolled (uncomplicated) 03/26/2011 ANGELA DAVIDSON APRN 477.9 RHINITIS 03/26/2011 MYNOR GOLDMAN APRN A 250.02 Diabetes Ii Uncontrolled (uncomplicated) 03/26/2011 DARION GOLDMAN APRNIDI A 477.9 RHINITIS 03/26/2011 HIEU PEDRAZA DO 250.02 Diabetes Ii Uncontrolled (uncomplicated) 03/26/2011 JANY PEDRAZA DOA K 477.9 RHINITIS 03/26/2011 GALLO BARRON MD 250.02 Diabetes Ii Uncontrolled (uncomplicated) 03/26/2011 GALLO BARRON MD 477.9 RHINITIS 03/26/2011 PEDRAZA DO, HIEU K 250.02 Diabetes Ii Uncontrolled (uncomplicated) 03/26/2011 HIEU PEDRAZA DO K 477.9 RHINITIS 03/26/2011 MILO PRADO, HIEU K 250.02 Diabetes Ii Uncontrolled (uncomplicated) 03/26/2011 MILO DO, HIEU K 477.9 RHINITIS 03/26/2011 SUSI [employer], MYNOR A 250.02 Diabetes Ii Uncontrolled (uncomplicated) 03/26/2011 SUSI [employer], MYNOR A 477.9 RHINITIS 03/26/2011 SUSI [employer], MYNOR A 250.02 Diabetes Ii Uncontrolled (uncomplicated) 03/26/2011 SUSI [employer], MYNOR A 477.9 RHINITIS 03/26/2011 TRAE GAO [facility] B 250.02 Diabetes Ii Uncontrolled (uncomplicated) 03/26/2011 TRAE GAO [facility] B 477.9 RHINITIS 03/26/2011 MILO PRADO, HIEU K 250.02 Diabetes Ii Uncontrolled (uncomplicated) 03/26/2011 HIEU PEDRAZA DO K 477.9 RHINITIS 03/26/2011 [facility] [place] R 250.02 Diabetes Ii Uncontrolled (uncomplicated) 03/26/2011 [facility] [place] R 477.9 RHINITIS 03/26/2011 [facility] [employer], RIGOBERTO 250.02 Diabetes Ii Uncontrolled (uncomplicated) 03/26/2011 [employer], RIGOBERTO 477.9 RHINITIS 03/26/2011 MILO PRADO, HIEU K 250.02 Diabetes Ii Uncontrolled (uncomplicated) 03/26/2011 MILO PRADO, HIEU K 477.9 RHINITIS 03/26/2011 JOSE DAVISON ABBY S 250.02 Diabetes Ii Uncontrolled (uncomplicated) 03/26/2011 JOSE DAVISON, ABBY S 477.9 RHINITIS 03/26/2011 TRISTAN BERMEO MD 250.02 Diabetes Ii Uncontrolled (uncomplicated) 03/26/2011 TRISTAN BERMEO MD 477.9 RHINITIS 03/26/2011 250.02 Diabetes Ii Uncontrolled (uncomplicated) 03/26/2011 477.9 RHINITIS 03/26/2011 MEGHNA HYMAN DDS 250.02 Diabetes Ii Uncontrolled (uncomplicated) 03/26/2011 MEGHNA HYMAN DDS 477.9 RHINITIS 03/26/2011 SUSI [employer], MYNOR A 250.02 Diabetes Ii Uncontrolled (uncomplicated) 03/26/2011 SUSI [employer]TAIN, MYNOR A 477.9 RHINITIS 03/26/2011 PEDRAZA DO, HIEU K 250.02 Diabetes Ii Uncontrolled (uncomplicated) 03/26/2011 PEDRAZA DO, HIEU K 477.9 RHINITIS 06/25/2011 132.0 Lice (head) 06/25/2011 455.6 HEMORRHOIDS NOS 06/25/2011 132.0 Lice (head) 06/25/2011 455.6 HEMORRHOIDS NOS 06/25/2011 132.0 Lice (head) 06/25/2011 455.6 HEMORRHOIDS NOS 06/25/2011 ANGELA DAVIDSON APRN 132.0 Lice (head) 06/25/2011 ANGELA DAVIDSON APRN 455.6 HEMORRHOIDS NOS 06/25/2011 SUSI [employer], MYNOR A 132.0 Lice (head) 06/25/2011 SUSI [employer]TAIN, MYNOR A 455.6 HEMORRHOIDS NOS 06/25/2011 PEDRAZA DO, HIEU K 132.0 Lice (head) 06/25/2011 PEDRAZA DO, HIEU K 455.6 HEMORRHOIDS NOS 06/25/2011 GALLO BARRON MD 132.0 Lice (head) 06/25/2011 GALLO BARRON MD 455.6 HEMORRHOIDS NOS 06/25/2011 PEDRAZA DO, HIEU K 132.0 Lice (head) 06/25/2011 PEDRAZA DO, HIEU K 455.6 HEMORRHOIDS NOS 06/25/2011 PEDRAZA DO, HIEU K 132.0 Lice (head) 06/25/2011 PEDRAZA DO, HIEU K 455.6 HEMORRHOIDS NOS 06/25/2011 SUSI [employer], MYNOR A 132.0 Lice (head) 06/25/2011 SUSI [employer]TAIN, MYNOR A 455.6 HEMORRHOIDS NOS 06/25/2011 SUSI [employer]TAIN, MYNOR A 132.0 Lice (head) 06/25/2011 SUSI [employer]TAIN, MYNOR A 455.6 HEMORRHOIDS NOS 06/25/2011 TRAE GAO [facility] 132.0 Lice (head) 06/25/2011 TRAE GAO LCPC 455.6 HEMORRHOIDS NOS 06/25/2011 PEDRAZA DO, HIEU K 132.0 Lice (head) 06/25/2011 PEDRAZA DO, HIEU K 455.6 HEMORRHOIDS NOS 06/25/2011 [facility] [place] [facility] 132.0 Lice (head) 06/25/2011 [facility], [place] R 455.6 HEMORRHOIDS NOS 06/25/2011 [facility] [employer], RIGOBERTO 132.0 Lice (head) 06/25/2011 YONAS [employer], RIGOBERTO 455.6 HEMORRHOIDS NOS 06/25/2011 PEDRAZA DO, HIEU K 132.0 Lice (head) 06/25/2011 PEDRAZA DO, HIEU K 455.6 HEMORRHOIDS NOS 06/25/2011 ABBY GARCIA APRN S 132.0 Lice (head) 06/25/2011 JOSE DAVISON, ABBY S 455.6 HEMORRHOIDS NOS 06/25/2011 TRISTAN BERMEO MD 132.0 Lice (head) 06/25/2011 TRISTAN BERMEO MD 455.6 HEMORRHOIDS NOS 06/25/2011 132.0 Lice (head) 06/25/2011 455.6 HEMORRHOIDS NOS 06/25/2011 MEGHNA HYMAN DDS 132.0 Lice (head) 06/25/2011 MEGHNA HYMAN DDS 455.6 HEMORRHOIDS NOS 06/25/2011 MYNOR GOLDMAN APRN A 132.0 Lice (head) 06/25/2011 DARION GOLDMAN APRNIDI A 455.6 HEMORRHOIDS NOS 06/25/2011 PEDRAZA DO, HIEU K 132.0 Lice (head) 06/25/2011 PEDRAZA DO, HIEU K 455.6 HEMORRHOIDS NOS 09/27/2011 Ot 250.03 DIAB CINDY WO COMPL, TYPE I [JUVENILE TYP 09/27/2011 Ot 285.9 ANEMIA NOS 09/27/2011 Ot 305.1 TOBACCO USE DISORDER 09/27/2011 Ot 382.9 OTITIS MEDIA NOS 09/27/2011 Ot 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 09/27/2011 Ot 616.10 VAGINITIS NOS 09/27/2011 Ot 780.52 INSOMNIA, UNSPECIFIED 09/27/2011 Ot 790.6 ABN BLOOD CHEMISTRY NEC 09/27/2011 Ot V03.82 PROPHYLACTIC VACC AGAINST STREPTOCOCCUS 09/27/2011 Ot V04.81 ND FOR PROPHYLACTIC VACCIN AND INOCULATI 09/27/2011 Ot V15.81 HX OF PAST NONCOMPLIANCE 09/29/2011 250.03 DIABETES MELLITUS TYPE 1 - UNCONTROLLED 09/29/2011 250.03 DIABETES MELLITUS TYPE 1 - UNCONTROLLED 09/29/2011 250.03 DIABETES MELLITUS TYPE 1 - UNCONTROLLED 09/29/2011 ANGELA DAVIDSON APRN 250.03 DIABETES MELLITUS TYPE 1 - UNCONTROLLED 09/29/2011 MYNOR GOLDMAN APRN 250.03 DIABETES MELLITUS TYPE 1 - UNCONTROLLED 09/29/2011 HIEU PEDRAZA DO 250.03 DIABETES MELLITUS TYPE 1 - UNCONTROLLED 09/29/2011 BEATRICE WILDE, GALLO [place] 250.03 DIABETES MELLITUS TYPE 1 - UNCONTROLLED 09/29/2011 HIEU PEDRAZA DO 250.03 DIABETES MELLITUS TYPE 1 - UNCONTROLLED 09/29/2011 HIEU PEDRAZA DO K 250.03 DIABETES MELLITUS TYPE 1 - UNCONTROLLED 09/29/2011 MYNOR GOLDMAN APRN A 250.03 DIABETES MELLITUS TYPE 1 - UNCONTROLLED 09/29/2011 MYNOR GOLDMAN APRN 250.03 DIABETES MELLITUS TYPE 1 - UNCONTROLLED 09/29/2011 [facility] [place] Smith 250.03 DIABETES MELLITUS TYPE 1 - UNCONTROLLED 09/29/2011 HIEU PEDRAZA DO 250.03 DIABETES MELLITUS TYPE 1 - UNCONTROLLED 09/29/2011 [facility] [place] Bowman 250.03 DIABETES MELLITUS TYPE 1 - UNCONTROLLED 09/29/2011 RIGOBERTO BRANHAM APRN 250.03 DIABETES MELLITUS TYPE 1 - UNCONTROLLED 09/29/2011 HIEU PEDRAZA DO 250.03 DIABETES MELLITUS TYPE 1 - UNCONTROLLED 09/29/2011 ABBY GARCIA APRN 250.03 DIABETES MELLITUS TYPE 1 - UNCONTROLLED 09/29/2011 ELVIE WILDE, TRISTAN 250.03 DIABETES MELLITUS TYPE 1 - UNCONTROLLED 09/29/2011 250.03 DIABETES MELLITUS TYPE 1 - UNCONTROLLED 09/29/2011 MEGHNA HYMAN DDS 250.03 DIABETES MELLITUS TYPE 1 - UNCONTROLLED 09/29/2011 MYNOR GOLDMAN APRN A 250.03 DIABETES MELLITUS TYPE 1 - UNCONTROLLED 09/29/2011 HIEU PEDRAZA DO 250.03 DIABETES MELLITUS TYPE 1 - UNCONTROLLED 10/13/2011 296.90 MOOD DISORDER 10/13/2011 780.52 INSOMNIA UNSPECIFIED 10/13/2011 296.90 MOOD DISORDER 10/13/2011 780.52 INSOMNIA UNSPECIFIED 10/13/2011 296.90 MOOD DISORDER 10/13/2011 780.52 INSOMNIA UNSPECIFIED 10/13/2011 ANGELA DAVIDSON APRN 296.90 MOOD DISORDER 10/13/2011 ANGELA DAVIDSON APRN 780.52 INSOMNIA UNSPECIFIED 10/13/2011 SUSI [employer], MYNOR A 296.90 MOOD DISORDER 10/13/2011 SUSI HUNTN, MYNOR A 780.52 INSOMNIA UNSPECIFIED 10/13/2011 PEDRAZA DO, HIEU K 296.90 MOOD DISORDER 10/13/2011 PEDRAZA DO, HIEU K 780.52 INSOMNIA UNSPECIFIED 10/13/2011 GALLO BARRON MD 296.90 MOOD DISORDER 10/13/2011 GALLO BARRON MD 780.52 INSOMNIA UNSPECIFIED 10/13/2011 PEDRAZA DO, HIEU K 296.90 MOOD DISORDER 10/13/2011 PEDRAZA DO, HIEU K 780.52 INSOMNIA UNSPECIFIED 10/13/2011 PEDRAZA DO, HIEU K 296.90 MOOD DISORDER 10/13/2011 PEDRAZA DO, HIEU K 780.52 INSOMNIA UNSPECIFIED 10/13/2011 SUSI [employer], MYNOR A 296.90 MOOD DISORDER 10/13/2011 SUSI [employer]TAIN, MYNOR A 780.52 INSOMNIA UNSPECIFIED 10/13/2011 SUSI [employer], MYNOR A 296.90 MOOD DISORDER 10/13/2011 SUSI [employer], MYNOR A 780.52 INSOMNIA UNSPECIFIED 10/13/2011 TRAE GAO [facility] B 296.90 MOOD DISORDER 10/13/2011 DIEGO GAO LCPCLEY B 780.52 INSOMNIA UNSPECIFIED 10/13/2011 PEDRAZA DO, HIEU K 296.90 MOOD DISORDER 10/13/2011 PEDRAZA DO, HIEU K 780.52 INSOMNIA UNSPECIFIED 10/13/2011 [facility] [place] R 296.90 MOOD DISORDER 10/13/2011 [facility] [place] R 780.52 INSOMNIA UNSPECIFIED 10/13/2011 HOWARD BRANHAM APRNETTE 296.90 MOOD DISORDER 10/13/2011 YONAS DAVISON RIGOBERTO 780.52 INSOMNIA UNSPECIFIED 10/13/2011 PEDRAZA DO, HIEU K 296.90 MOOD DISORDER 10/13/2011 PEDRAZA DO, HIEU K 780.52 INSOMNIA UNSPECIFIED 10/13/2011 ABBY GARCIA APRN 296.90 MOOD DISORDER 10/13/2011 ABBY GARCIA APRN 780.52 INSOMNIA UNSPECIFIED 10/13/2011 TRISTAN BERMEO MD 296.90 MOOD DISORDER 10/13/2011 TRISTAN BERMEO MD 780.52 INSOMNIA UNSPECIFIED 10/13/2011 296.90 MOOD DISORDER 10/13/2011 780.52 INSOMNIA UNSPECIFIED 10/13/2011 HYMAN DDS, MEGHNA 296.90 MOOD DISORDER 10/13/2011 HYMAN DDS, MEGHNA 780.52 INSOMNIA UNSPECIFIED 10/13/2011 MYNOR GOLDMAN APRN A 296.90 MOOD DISORDER 10/13/2011 DARION GOLDMAN APRNIDI A 780.52 INSOMNIA UNSPECIFIED 10/13/2011 IHEU PEDRAZA DO K 296.90 MOOD DISORDER 10/13/2011 HIEU PEDRAZA DO 780.52 INSOMNIA UNSPECIFIED 12/08/2011 558.9 Gastroenteritis Noninfectious 12/08/2011 558.9 Gastroenteritis Noninfectious 12/08/2011 558.9 Gastroenteritis Noninfectious 12/08/2011 ANGELA DAVIDSON APRN 558.9 Gastroenteritis Noninfectious 12/08/2011 MYNOR GOLDMAN APRN A 558.9 Gastroenteritis Noninfectious 12/08/2011 HIEU PEDRAZA DO K 558.9 Gastroenteritis Noninfectious 12/08/2011 GALLO BARRON MD 558.9 Gastroenteritis Noninfectious 12/08/2011 HIEU PEDRAZA DO K 558.9 Gastroenteritis Noninfectious 12/08/2011 HIEU PEDRAZA DO K 558.9 Gastroenteritis Noninfectious 12/08/2011 MYNOR GOLDMAN APRN A 558.9 Gastroenteritis Noninfectious 12/08/2011 DARION GOLDMAN APRNIDI A 558.9 Gastroenteritis Noninfectious 12/08/2011 TRAE GAO [facility] 558.9 Gastroenteritis Noninfectious 12/08/2011 HIEU PEDRAZA DO K 558.9 Gastroenteritis Noninfectious 12/08/2011 [facility] [place] Bowman 558.9 Gastroenteritis Noninfectious 12/08/2011 RIGOBERTO BRANHAM APRN 558.9 Gastroenteritis Noninfectious 12/08/2011 HIEU PEDRAZA DO K 558.9 Gastroenteritis Noninfectious 12/08/2011 ABBY GARCIA APRN 558.9 Gastroenteritis Noninfectious 12/08/2011 ELVIE WILDE, TRISTAN 558.9 Gastroenteritis Noninfectious 12/08/2011 558.9 Gastroenteritis Noninfectious 12/08/2011 BOOGIE BATES, MEGHNA 558.9 Gastroenteritis Noninfectious 12/08/2011 MYNOR GOLDMAN APRN 558.9 Gastroenteritis Noninfectious 12/08/2011 PEDRAZA DO, HIEU K 558.9 Gastroenteritis Noninfectious 12/21/2011 782.0 Sensory Disturbance Skin 12/21/2011 787.02 Nausea Alone 12/21/2011 V22.2 INCIDENTAL 12/21/2011 782.0 Sensory Disturbance Skin 12/21/2011 787.02 Nausea Alone 12/21/2011 V22.2 INCIDENTAL 12/21/2011 782.0 Sensory Disturbance Skin 12/21/2011 787.02 Nausea Alone 12/21/2011 V22.2 INCIDENTAL 12/21/2011 ANGELA DAVIDSON APRN 782.0 Sensory Disturbance Skin 12/21/2011 ANGELA DAVIDSON APRN 787.02 Nausea Alone 12/21/2011 ANGELA DAVIDSON APRN V22.2 INCIDENTAL 12/21/2011 MYNOR GOLDMAN APRN 782.0 Sensory Disturbance Skin 12/21/2011 MYNOR GOLDMAN APRN 787.02 Nausea Alone 12/21/2011 MYNOR GOLDMAN APRN A V22.2 INCIDENTAL 12/21/2011 PEDRAZA DO, HIEU K 782.0 Sensory Disturbance Skin 12/21/2011 PEDRAZA DO, HIEU K 787.02 Nausea Alone 12/21/2011 PEDRAZA DO, HIEU K V22.2 INCIDENTAL 12/21/2011 GALLO BARRON MD 782.0 Sensory Disturbance Skin 12/21/2011 GALLO BARRON MD 787.02 Nausea Alone 12/21/2011 GALLO BARRON MD V22.2 INCIDENTAL 12/21/2011 PEDRAZA DO, HIEU K 782.0 Sensory Disturbance Skin 12/21/2011 PEDRAZA DO, HIEU K 787.02 Nausea Alone 12/21/2011 PEDRAZA DO, HIEU K V22.2 INCIDENTAL 12/21/2011 PEDRAZA DO, HIEU K 782.0 Sensory Disturbance Skin 12/21/2011 PEDRAZA DO, HIEU K 787.02 Nausea Alone 12/21/2011 PEDRAZA DO, HIEU K V22.2 INCIDENTAL 12/21/2011 SUSI [employer], MYNOR A 782.0 Sensory Disturbance Skin 12/21/2011 SUSI [employer]TAIN, MYNOR A 787.02 Nausea Alone 12/21/2011 SUSI [employer]TAIN, MYNOR A V22.2 INCIDENTAL 12/21/2011 SUSI [employer]TAIN, MYNOR A 782.0 Sensory Disturbance Skin 12/21/2011 SUSI [employer]TAIN, MYNOR A 787.02 Nausea Alone 12/21/2011 SUSI [employer]TAIN, MYNOR A V22.2 INCIDENTAL 12/21/2011 [facility] [employer], TRAE B 782.0 Sensory Disturbance Skin 12/21/2011 [facility] [employer], TRAE B 787.02 Nausea Alone 12/21/2011 [facility] [employer], TRAE B V22.2 INCIDENTAL 12/21/2011 PEDRAZA DO, HIEU K 782.0 Sensory Disturbance Skin 12/21/2011 EPDRAZA DO, HIEU K 787.02 Nausea Alone 12/21/2011 PEDRAZA DO, HIEU K V22.2 INCIDENTAL 12/21/2011 [facility] [place] R 782.0 Sensory Disturbance Skin 12/21/2011 [facility], [place] R 787.02 Nausea Alone 12/21/2011 [facility], [place] R V22.2 INCIDENTAL 12/21/2011 [employer] [employer], RIGOBERTO 782.0 Sensory Disturbance Skin 12/21/2011 YONAS [employer], RIGOBERTO 787.02 Nausea Alone 12/21/2011 YONAS [employer]TAIN, RIGOBERTO V22.2 INCIDENTAL 12/21/2011 PEDRAZA DO, HIEU K 782.0 Sensory Disturbance Skin 12/21/2011 PEDRAZA DO, HIEU K 787.02 Nausea Alone 12/21/2011 PEDRAZA DO, HIEU K V22.2 INCIDENTAL 12/21/2011 JOSE [employer], ABBY S 782.0 Sensory Disturbance Skin 12/21/2011 JOSE [employer]TAIN, ABBY S 787.02 Nausea Alone 12/21/2011 JOSE [employer]TAIN, ABBY S V22.2 INCIDENTAL 12/21/2011 ELVIE WILDE, TRISTAN 782.0 Sensory Disturbance Skin 12/21/2011 TRISTAN BERMEO MD 787.02 Nausea Alone 12/21/2011 TRISTAN BERMEO MD V22.2 INCIDENTAL 12/21/2011 782.0 Sensory Disturbance Skin 12/21/2011 787.02 Nausea Alone 12/21/2011 V22.2 INCIDENTAL 12/21/2011 HYMAN DDS, MEGHNA 782.0 Sensory Disturbance Skin 12/21/2011 HYMAN DDS, MEGHNA 787.02 Nausea Alone 12/21/2011 HYMAN DDS, MEGHNA V22.2 INCIDENTAL 12/21/2011 SUSI [employer], MYNOR A 782.0 Sensory Disturbance Skin 12/21/2011 SUSI [employer]TAIN, MYNOR A 787.02 Nausea Alone 12/21/2011 SUSI [employer]TAIN, MYNOR A V22.2 INCIDENTAL 12/21/2011 PEDRAZA DO, HIEU K 782.0 Sensory Disturbance Skin 12/21/2011 PEDRAZA DO, HIEU K 787.02 Nausea Alone 12/21/2011 PEDRAZA DO, HIEU K V22.2 INCIDENTAL 01/04/2012 640.00 Threatened 01/04/2012 V23.9 , High-risk (unspec) 01/04/2012 640.00 Threatened 01/04/2012 V23.9 , High-risk (unspec) 01/04/2012 640.00 Threatened 01/04/2012 V23.9 , High-risk (unspec) 01/04/2012 ANGELA DAVIDSON APRN 640.00 Threatened 01/04/2012 ANGELA DAVIDSON APRN V23.9 , High-risk (unspec) 01/04/2012 SUSI DAVISON, MYNOR A 640.00 Threatened 01/04/2012 SUSI DAVISON, MYNOR A V23.9 , High-risk (unspec) 01/04/2012 PEDRAZA , HIEU K 640.00 Threatened 01/04/2012 PEDRAZA DO, HIEU K V23.9 , High-risk (unspec) 01/04/2012 GALLO BARRON MD 640.00 Threatened 01/04/2012 GALLO BARRON MD V23.9 , High-risk (unspec) 01/04/2012 MILO DO, HIEU K 640.00 Threatened 01/04/2012 PEDRAZA DO, HIEU K V23.9 , High-risk (unspec) 01/04/2012 PEDRAZA DO, HIEU K 640.00 Threatened 01/04/2012 PEDRAZA DO, HIEU K V23.9 , High-risk (unspec) 01/04/2012 [employer], MYNOR A 640.00 Threatened 01/04/2012 [employer], MYNOR A V23.9 , High-risk (unspec) 01/04/2012 [employer], MYNOR A 640.00 Threatened 01/04/2012 S[employer], MYNOR A V23.9 , High-risk (unspec) 01/04/2012 [employer], TRAE B 640.00 Threatened 01/04/2012 [employer]IC[employer], TRAE B V23.9 , High-risk (unspec) 01/04/2012 MILO PRADO, HIEU K 640.00 Threatened 01/04/2012 MILO DO, HIEU K V23.9 , High-risk (unspec) 01/04/2012 [facility], [place] R 640.00 Threatened 01/04/2012 [facility], [place] R V23.9 , High-risk (unspec) 01/04/2012 [employer], RIGOBERTO 640.00 Threatened 01/04/2012 [employer], RIGOBERTO V23.9 , High-risk (unspec) 01/04/2012 MILO DO, HIEU K 640.00 Threatened 01/04/2012 MILO DO, HIEU K V23.9 , High-risk (unspec) 01/04/2012 [employer]SE [employer], ABBY S 640.00 Threatened 01/04/2012 [employer]SE [employer], ABYB S V23.9 , High-risk (unspec) 01/04/2012 TRISTAN BERMEO MD 640.00 Threatened 01/04/2012 TRISTAN BERMEO MD V23.9 , High-risk (unspec) 01/04/2012 640.00 Threatened 01/04/2012 V23.9 , High-risk (unspec) 01/04/2012 MEGHNA HYMAN DDS 640.00 Threatened 01/04/2012 BOOGIE DDS, MEGHNA V23.9 , High-risk (unspec) 01/04/2012 SUSIMYNOR Lowry APRN A 640.00 Threatened 01/04/2012 SUSIMYNOR Lowry APRN A V23.9 , High-risk (unspec) 01/04/2012 HIEU PEDRAZA DO 640.00 Threatened 01/04/2012 HIEU PEDRAZA DO V23.9 , High-risk (unspec) 01/09/2012 Ot 616.10 VAGINITIS NOS 01/09/2012 Ot 623.8 NONINFLAM DIS VAGINA NEC 01/09/2012 Ot 634.01 SPON ABOR W PELV INF-INC 01/15/2012 Ot 599.0 URIN TRACT INFECTION NOS 01/15/2012 Ot 789.09 ABDOMINAL PAIN, OTHER SPECIFIED SITE 04/13/2012 V72.42 TEST POSITIVE RESULT 04/13/2012 V72.42 TEST POSITIVE RESULT 04/13/2012 V72.42 TEST POSITIVE RESULT 04/13/2012 ANGELA DAVIDSON APRN V72.42 TEST POSITIVE RESULT 04/13/2012 MYNOR GOLDMAN APRN A V72.42 TEST POSITIVE RESULT 04/13/2012 HIEU PEDRAZA DO V72.42 TEST POSITIVE RESULT 04/13/2012 GALLO BARRON MD V72.42 TEST POSITIVE RESULT 04/13/2012 HIEU PEDRAZA DO V72.42 TEST POSITIVE RESULT 04/13/2012 HIEU PEDRZAA DO V72.42 TEST POSITIVE RESULT 04/13/2012 MYNOR GOLDMAN APRN A V72.42 TEST POSITIVE RESULT 04/13/2012 MYNOR GOLDMAN APRN A V72.42 TEST POSITIVE RESULT 04/13/2012 TRAE GAO LCPC V72.42 TEST POSITIVE RESULT 04/13/2012 HIEU PEDRAZA DO V72.42 TEST POSITIVE RESULT 04/13/2012 [facility], [place] Bowman V72.42 TEST POSITIVE RESULT 04/13/2012 RIGOBERTO BRANHAM APRN V72.42 TEST POSITIVE RESULT 04/13/2012 HIEU PEDRAZA DO V72.42 TEST POSITIVE RESULT 04/13/2012 [employer], ABBY S V72.42 TEST POSITIVE RESULT 04/13/2012 TRISTAN BERMEO MD V72.42 TEST POSITIVE RESULT 04/13/2012 V72.42 TEST POSITIVE RESULT 04/13/2012 BOOGIE BATES, MEGHNA V72.42 TEST POSITIVE RESULT 04/13/2012 S[employer]I [employer], MYNOR A V72.42 TEST POSITIVE RESULT 04/13/2012 PEDRAZA DO, HIEU K V72.42 TEST POSITIVE RESULT 04/27/2012 V22.1 , NORMAL OTHER 04/27/2012 V22.1 , NORMAL OTHER 04/27/2012 V22.1 , NORMAL OTHER 04/27/2012 ANGELA DAVIDSON APRN V22.1 , NORMAL OTHER 04/27/2012 [employer], MYNOR A V22.1 , NORMAL OTHER 04/27/2012 PEDRAZA DO, HIEU K V22.1 , NORMAL OTHER 04/27/2012 BEATRICE WILDE, GALLO [place] V22.1 , NORMAL OTHER 04/27/2012 PEDRAZA DO, HIEU K V22.1 , NORMAL OTHER 04/27/2012 PEDRAZA DO, HIEU K V22.1 , NORMAL OTHER 04/27/2012 [employer], MYNOR A V22.1 , NORMAL OTHER 04/27/2012 [employer], MYNOR A V22.1 , NORMAL OTHER 04/27/2012 [facility], TRAE B V22.1 , NORMAL OTHER 04/27/2012 PEDRAZA DO, HIEU K V22.1 , NORMAL OTHER 04/27/2012 [facility], [place]ILIP R V22.1 , NORMAL OTHER 04/27/2012 RIGOBERTO BRANHAM APRN V22.1 , NORMAL OTHER 04/27/2012 PEDRAZA DO, HIEU K V22.1 , NORMAL OTHER 04/27/2012 ABBY GARCIA APRN S V22.1 , NORMAL OTHER 04/27/2012 TRISTAN BERMEO MD V22.1 , NORMAL OTHER 04/27/2012 V22.1 , NORMAL OTHER 04/27/2012 MEGHNA HYMAN DDS V22.1 , NORMAL OTHER 04/27/2012 SUSI [employer] CAPTAIN, MYNOR A V22.1 , NORMAL OTHER 04/27/2012 HIEU PEDRAZA DO V22.1 , NORMAL OTHER 04/27/2012 Ot 250.01 DIAB CINDY WO COMPL, TYPE I [JUVENILE TYP 04/27/2012 Ot 648.03 DIABETES- ANTEPARTUM 04/27/2012 Ot 649.53 SPOTTING COMP , ANTEPARTUM COND 06/19/2012 Ot 625.9 FEM GENITAL SYMPTOMS NOS 06/19/2012 Ot 646.83 PREG COMPL NEC-ANTEPART 09/10/2012 Ot 646.83 PREG COMPL NEC-ANTEPART 09/10/2012 Ot 780.64 CHILLS ( WITHOUT FEVER) 09/10/2012 Ot 784.0 HEADACHE 09/12/2012 Ot 250.03 DIAB CINDY WO COMPL, TYPE I [JUVENILE TYP 09/12/2012 Ot 276.1 HYPOSMOLALITY 09/12/2012 Ot 280.9 IRON DEFIC ANEMIA NOS 09/12/2012 Ot 599.0 URIN TRACT INFECTION NOS 09/12/2012 Ot 646.63 INFECTION -ANTEPARTUM 09/12/2012 Ot 646.83 PREG COMPL NEC-ANTEPART 09/12/2012 Ot 648.03 DIABETES- ANTEPARTUM 09/12/2012 Ot 648.23 ANEMIA- ANTEPARTUM 09/12/2012 Ot V04.81 ND FOR PROPHYLACTIC VACCIN AND INOCULATI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 mmol/L 23-27 Arterial blood base excess by calculation 0.9 mmol/L -2.5 -2.5 Arterial blood oxygen saturation measurement 99 % 94-100 * Inhaled oxygen flow rate ROOM AIR NRG Arterial blood pH measurement with patient temperature correction 7.43 7.37-7.43 Arterial blood carbon dioxide, total measurement (moles/volume) 26.0 mmol/L 21.0-31.0 Body site RIGHT BRACHIAL NRG Assessment of wrist artery patency prior to arterial puncture NA NRG Setting of ventilation mode NO NRG Measurement of body temperature 98.2 NRG Complete blood count (CBC) with automated white blood cell (WBC) differential - 03/18/17 21:20 Blood leukocytes automated count (number/volume) 6.6 10*3/uL 4.3-11.0 Blood erythrocytes automated count (number/volume) 4.39 10*6/uL 4.35-5.85 Venous blood hemoglobin measurement (mass/volume) 13.9 g/dL 11.5-16.0 Blood hematocrit (volume fraction) 40 % 35-52 Automated erythrocyte mean corpuscular volume 90 [foz_us] 80-99 Automated erythrocyte mean corpuscular hemoglobin (mass per erythrocyte) 32 pg 25-34 Automated erythrocyte mean corpuscular hemoglobin concentration measurement ( mass/volume) 35 g/dL 32-36 Automated erythrocyte distribution width ratio 11.9 % 10.0-14.5 Automated blood platelet count (count/volume) 242 10*3/uL 130-400 Automated blood platelet mean volume measurement 11.6 [foz_us] 7.4-10.4 Automated blood neutrophils/100 leukocytes 54 % 42-75 Automated blood lymphocytes/100 leukocytes 35 % 12-44 Blood monocytes/100 leukocytes 8 % 0-12 Automated blood eosinophils/100 leukocytes 3 % 0-10 Automated blood basophils/100 leukocytes 1 % 0-10 Blood neutrophils automated count (number/volume) 3.5 10*3 1.8-7.8 Blood lymphocytes automated count (number/volume) 2.3 10*3 1.0-4.0 Blood monocytes automated count (number/volume) 0.6 10*3 0.0-1.0 Automated eosinophil count 0.2 10*3/uL 0.0-0.3 Automated blood basophil count (count/volume) 0.0 10*3/uL 0.0-0.1 Serum heterophile antibody titer - 03/18/17 21:20 Serum heterophile antibody titer NEGATIVE NEGATIVE Comprehensive metabolic panel - 03/18/17 21:20 Serum or plasma sodium measurement (moles/volume) 133 mmol/L 135-145 Serum or plasma potassium measurement (moles/volume) 3.7 mmol/L 3.6-5.0 Serum or plasma chloride measurement (moles/volume) 93 mmol/L 98-107 Carbon dioxide 26 mmol/L 21-32 Serum or plasma anion gap determination (moles/volume) 14 mmol/L 5-14 Serum or plasma urea nitrogen measurement (mass/volume) 14 mg/dL 7-18 Serum or plasma creatinine measurement (mass/volume) 1.02 mg/dL 0.60-1.30 Serum or plasma urea nitrogen/creatinine mass ratio 14 NRG Serum or plasma creatinine measurement with calculation of estimated glomerular filtration rate > NRG Serum or plasma glucose measurement (mass/volume) 495 mg/dL 70-105 Serum or plasma calcium measurement (mass/volume) 10.3 mg/dL 8.5-10.1 Serum or plasma total bilirubin measurement (mass/volume) 1.1 mg/dL 0.1-1.0 Serum or plasma alkaline phosphatase measurement (enzymatic activity/volume) 121 U/L 40-136 Serum or plasma aspartate aminotransferase measurement (enzymatic activity/ volume) 27 U/L 5-34 Serum or plasma alanine aminotransferase measurement (enzymatic activity/volume ) 59 U/L 0-55 Serum or plasma protein measurement (mass/volume) 8.6 g/dL 6.4-8.2 Serum or plasma albumin measurement (mass/volume) 4.6 g/dL 3.2-4.5 Magnesium - 03/18/17 21:20 Magnesium 2.1 mg/dL 1.8-2.4 Serum or plasma amylase measurement (enzymatic activity/volume) - 03/18/17 21: 20 Serum or plasma amylase measurement (enzymatic activity/volume) 15 U /L 25-125 Lipase - 03/18/17 21:20 Lipase 4 U/L 8-78 Serum or plasma thyrotropin measurement by detection limit <=0.05 miu/l (units/ volume) - 03/18/17 21:20 Serum or plasma thyrotropin measurement by detection limit <=0.05 miu/l (units/ volume) 3.22 u[iU]/mL 0.35-4.94 Serum or plasma choriogonadotropin ( test) detection - 03/18/17 21:20 Serum or plasma choriogonadotropin ( test) detection NEGATIVE NEGATIVE Serum or plasma ethanol measurement (mass/volume) - 03/18/17 21:20 Serum or plasma ethanol measurement (mass/volume) < mg/dL <10 Complete urinalysis with reflex to culture - 03/18/17 21:47 Urine color determination YELLOW NRG Urine clarity determination CLEAR NRG Urine pH measurement by test strip 6 5-9 Specific gravity of urine by test strip 1.010 1.016- 1.022 Urine protein assay by test strip, semi-quantitative 2+ NEGATIVE Urine glucose detection by automated test strip 4+ NEGATIVE Erythrocytes detection in urine sediment by light microscopy 1+ NEGATIVE Urine ketones detection by automated test strip 3+ NEGATIVE Urine nitrite detection by test strip NEGATIVE NEGATIVE Urine total bilirubin detection by test strip NEGATIVE NEGATIVE Urine urobilinogen measurement by automated test strip (mass/volume) NORMAL NORMAL Urine leukocyte esterase detection by dipstick NEGATIVE NEGATIVE Automated urine sediment erythrocyte count by microscopy (number/high power field) [HPF] NRG Automated urine sediment leukocyte count by microscopy (number/high power field ) [HPF] NRG Bacteria detection in urine sediment by light microscopy LARGE NRG Crystals detection in urine sediment by light microscopy NONE NRG Casts detection in urine sediment by light microscopy NONE NRG Mucus detection in urine sediment by light microscopy NEGATIVE NRG Complete urinalysis with reflex to culture YES NRG Urine drug screening test - 03/18/17 21:47 Urine phencyclidine detection by screening method NEGATIVE NEGATIVE Urine benzodiazepines detection by screening method NEGATIVE NEGATIVE Urine cocaine detection NEGATIVE NEGATIVE Urine amphetamines detection by screening method NEGATIVE NEGATIVE Urine methamphetamine detection by screening method NEGATIVE NEGATIVE Urine cannabinoids detection by screening method NEGATIVE NEGATIVE Urine opiates detection by screening method NEGATIVE NEGATIVE Urine barbiturates detection NEGATIVE NEGATIVE Screening urine tricyclic antidepressants detection NEGATIVE NEGATIVE Urine methadone detection by screening method NEGATIVE NEGATIVE Urine oxycodone detection NEGATIVE NEGATIVE Urine propoxyphene detection NEGATIVE NEGATIVE Bacterial urine culture - 03/18/17 21:47 Bacterial urine culture [id number] NRG COLONY COUNT <10,000 NRG FTX;REPORTABLE SENSITIVITY REPORTED 03/20/17 9:00 NRG Bacterial susceptibility panel - 03/18/17 21:47 Gentamicin susceptibility test by minimum inhibitory concentration < = NRG Trimethoprim/sulfamethoxazole susceptibility test by minimum inhibitoryconcentration <= NRG Ampicillin susceptibility test by minimum inhibitory concentration 4 NRG Tobramycin susceptibility test by minimum inhibitory concentration < = NRG Cefazolin susceptibility test by minimum inhibitory concentration < = NRG Ceftriaxone susceptibility test by minimum inhibitory concentration <= NRG Ampicillin/sulbactam susceptibility test by minimum inhibitory concentration <= NRG Piperacillin/tazobactam susceptibility test by minimum inhibitory concentration <= NRG Ciprofloxacin susceptibility test by minimum inhibitory concentration <= NRG Meropenem susceptibility test by minimum inhibitory concentration < = NRG Nitrofurantoin susceptibility test by minimum inhibitory concentration <= NRG Aztreonam susceptibility test by minimum inhibitory concentration < = NRG Extended spectrum beta lactamase (ESBL) producing bacteria susceptibility test by minimum inhibitory concentration - NRG Capillary blood glucose measurement by glucometer (mass/volume) - 06/03/17 12: 23 Capillary blood glucose measurement by glucometer (mass/volume) 85 mg/dL 70-110 Complete blood count (CBC) with automated white blood cell (WBC) differential - 06/03/17 12:25 Blood leukocytes automated count (number/volume) 6.7 10*3/uL 4.3-11.0 Blood erythrocytes automated count (number/volume) 3.48 10*6/uL 4.35-5.85 Venous blood hemoglobin measurement (mass/volume) 10.9 g/dL 11.5-16.0 Blood hematocrit (volume fraction) 34 % 35-52 Automated erythrocyte mean corpuscular volume 98 [foz_us] 80-99 Automated erythrocyte mean corpuscular hemoglobin (mass per erythrocyte) 31 pg 25-34 Automated erythrocyte mean corpuscular hemoglobin concentration measurement ( mass/volume) 32 g/dL 32-36 Automated erythrocyte distribution width ratio 12.5 % 10.0-14.5 Automated blood platelet count (count/volume) 220 10*3/uL 130-400 Automated blood platelet mean volume measurement 10.8 [foz_us] 7.4-10.4 Automated blood neutrophils/100 leukocytes 82 % 42-75 Automated blood lymphocytes/100 leukocytes 14 % 12-44 Blood monocytes/100 leukocytes 4 % 0-12 Automated blood eosinophils/100 leukocytes 0 % 0-10 Automated blood basophils/100 leukocytes 0 % 0-10 Blood neutrophils automated count (number/volume) 5.5 10*3 1.8-7.8 Blood lymphocytes automated count (number/volume) 0.9 10*3 1.0-4.0 Blood monocytes automated count (number/volume) 0.3 10*3 0.0-1.0 Automated eosinophil count 0.0 10*3/uL 0.0-0.3 Automated blood basophil count (count/volume) 0.0 10*3/uL 0.0-0.1 Comprehensive metabolic panel - 06/03/17 12:25 Serum or plasma sodium measurement (moles/volume) 137 mmol/L 135-145 Serum or plasma potassium measurement (moles/volume) 3.8 mmol/L 3.6-5.0 Serum or plasma chloride measurement (moles/volume) 106 mmol/L 98-107 Carbon dioxide 23 mmol/L 21-32 Serum or plasma anion gap determination (moles/volume) 8 mmol/L 5-14 Serum or plasma urea nitrogen measurement (mass/volume) 11 mg/dL 7-18 Serum or plasma creatinine measurement (mass/volume) 0.62 mg/dL 0.60-1.30 Serum or plasma urea nitrogen/creatinine mass ratio 18 NRG Serum or plasma creatinine measurement with calculation of estimated glomerular filtration rate > NRG Serum or plasma glucose measurement (mass/volume) 234 mg/dL 70-105 Serum or plasma calcium measurement (mass/volume) 8.3 mg/dL 8.5-10.1 Serum or plasma total bilirubin measurement (mass/volume) 0.2 mg/dL 0.1-1.0 Serum or plasma alkaline phosphatase measurement (enzymatic activity/volume) 88 U/L 40-136 Serum or plasma aspartate aminotransferase measurement (enzymatic activity/ volume) 93 U/L 5-34 Serum or plasma alanine aminotransferase measurement (enzymatic activity/volume ) 99 U/L 0-55 Serum or plasma protein measurement (mass/volume) 6.1 g/dL 6.4-8.2 Serum or plasma albumin measurement (mass/volume) 3.4 g/dL 3.2-4.5 Serum or plasma C reactive protein measurement (mass/volume) - 06/03/17 12:25 Serum or plasma C reactive protein measurement (mass/volume) 0.07 mg /dL 0.00-0.50 Complete urinalysis with reflex to culture - 06/03/17 12:40 Urine color determination YELLOW NRG Urine clarity determination CLEAR NRG Urine pH measurement by test strip 5 5-9 Specific gravity of urine by test strip 1.010 1.016- 1.022 Urine protein assay by test strip, semi-quantitative NEGATIVE NEGATIVE Urine glucose detection by automated test strip 4+ NEGATIVE Erythrocytes detection in urine sediment by light microscopy 1+ NEGATIVE Urine ketones detection by automated test strip NEGATIVE NEGATIVE Urine nitrite detection by test strip POSITIVE NEGATIVE Urine total bilirubin detection by test strip NEGATIVE NEGATIVE Urine urobilinogen measurement by automated test strip (mass/volume) NORMAL NORMAL Urine leukocyte esterase detection by dipstick 2+ NEGATIVE Automated urine sediment erythrocyte count by microscopy (number/high power field) NONE NRG Automated urine sediment leukocyte count by microscopy (number/high power field ) > [HPF] NRG Bacteria detection in urine sediment by light microscopy LARGE NRG Squamous epithelial cells detection in urine sediment by light microscopy 2-5 NRG Crystals detection in urine sediment by light microscopy NONE NRG Casts detection in urine sediment by light microscopy NONE NRG Mucus detection in urine sediment by light microscopy NEGATIVE NRG Complete urinalysis with reflex to culture YES NRG Bacterial urine culture - 06/03/17 12:40 Bacterial urine culture [id number] NRG COLONY COUNT >100,000/ML NR FTX;REPORTABLE SENSITIVITY REPORTED AT 1629, 06-04-17 NR FREE TEXT ENTRY 3 MIXED GRAM POSITIVE KI <10,000/ML NR Bacterial susceptibility panel - 06/03/17 12:40 Gentamicin susceptibility test by minimum inhibitory concentration < = NRG Trimethoprim/sulfamethoxazole susceptibility test by minimum inhibitoryconcentration <= NRG Ampicillin susceptibility test by minimum inhibitory concentration > = NRG Tobramycin susceptibility test by minimum inhibitory concentration < = NRG Cefazolin susceptibility test by minimum inhibitory concentration < = NRG Ceftriaxone susceptibility test by minimum inhibitory concentration <= NRG Ampicillin/sulbactam susceptibility test by minimum inhibitory concentration 4 NRG Piperacillin/tazobactam susceptibility test by minimum inhibitory concentration <= NRG Ciprofloxacin susceptibility test by minimum inhibitory concentration <= NRG Meropenem susceptibility test by minimum inhibitory concentration < = NRG Nitrofurantoin susceptibility test by minimum inhibitory concentration 64 NRG Aztreonam susceptibility test by minimum inhibitory concentration < = NRG Extended spectrum beta lactamase (ESBL) producing bacteria susceptibility test by minimum inhibitory concentration - NRG Capillary blood glucose measurement by glucometer (mass/volume) - 06/03/17 13: 36 Capillary blood glucose measurement by glucometer (mass/volume) 99 mg/dL 70-110 Capillary blood glucose measurement by glucometer (mass/volume) - 06/03/17 14: 33 Capillary blood glucose measurement by glucometer (mass/volume) 221 mg/dL 70-110 Capillary blood glucose measurement by glucometer (mass/volume) - 06/06/17 14: 46 Capillary blood glucose measurement by glucometer (mass/volume) 521 mg/dL 70-110 Complete blood count (CBC) with automated white blood cell (WBC) differential - 06/06/17 14:55 Blood leukocytes automated count (number/volume) 6.2 10*3/uL 4.3-11.0 Blood erythrocytes automated count (number/volume) 4.14 10*6/uL 4.35-5.85 Venous blood hemoglobin measurement (mass/volume) 13.0 g/dL 11.5-16.0 Blood hematocrit (volume fraction) 38 % 35-52 Automated erythrocyte mean corpuscular volume 93 [foz_us] 80-99 Automated erythrocyte mean corpuscular hemoglobin (mass per erythrocyte) 31 pg 25-34 Automated erythrocyte mean corpuscular hemoglobin concentration measurement ( mass/volume) 34 g/dL 32-36 Automated erythrocyte distribution width ratio 12.1 % 10.0-14.5 Automated blood platelet count (count/volume) 265 10*3/uL 130-400 Automated blood platelet mean volume measurement 10.8 [foz_us] 7.4-10.4 Automated blood neutrophils/100 leukocytes 59 % 42-75 Automated blood lymphocytes/100 leukocytes 33 % 12-44 Blood monocytes/100 leukocytes 6 % 0-12 Automated blood eosinophils/100 leukocytes 3 % 0-10 Automated blood basophils/100 leukocytes 0 % 0-10 Blood neutrophils automated count (number/volume) 3.7 10*3 1.8-7.8 Blood lymphocytes automated count (number/volume) 2.1 10*3 1.0-4.0 Blood monocytes automated count (number/volume) 0.4 10*3 0.0-1.0 Automated eosinophil count 0.2 10*3/uL 0.0-0.3 Automated blood basophil count (count/volume) 0.0 10*3/uL 0.0-0.1 Comprehensive metabolic panel - 06/06/17 14:55 Serum or plasma sodium measurement (moles/volume) 131 mmol/L 135-145 Serum or plasma potassium measurement (moles/volume) 4.1 mmol/L 3.6-5.0 Serum or plasma chloride measurement (moles/volume) 95 mmol/L 98-107 Carbon dioxide 24 mmol/L 21-32 Serum or plasma anion gap determination (moles/volume) 12 mmol/L 5-14 Serum or plasma urea nitrogen measurement (mass/volume) 13 mg/dL 7-18 Serum or plasma creatinine measurement (mass/volume) 0.96 mg/dL 0.60-1.30 Serum or plasma urea nitrogen/creatinine mass ratio 14 NRG Serum or plasma creatinine measurement with calculation of estimated glomerular filtration rate > NRG Serum or plasma glucose measurement (mass/volume) 661 mg/dL 70-105 Serum or plasma calcium measurement (mass/volume) 9.9 mg/dL 8.5-10.1 Serum or plasma total bilirubin measurement (mass/volume) 0.7 mg/dL 0.1-1.0 Serum or plasma alkaline phosphatase measurement (enzymatic activity/volume) 143 U/L 40-136 Serum or plasma aspartate aminotransferase measurement (enzymatic activity/ volume) 39 U/L 5-34 Serum or plasma alanine aminotransferase measurement (enzymatic activity/volume ) 102 U/L 0-55 Serum or plasma protein measurement (mass/volume) 7.7 g/dL 6.4-8.2 Serum or plasma albumin measurement (mass/volume) 4.2 g/dL 3.2-4.5 Complete urinalysis with reflex to culture - 06/06/17 18:03 Urine color determination YELLOW NRG Urine clarity determination CLEAR NRG Urine pH measurement by test strip 6 5-9 Specific gravity of urine by test strip 1.010 1.016- 1.022 Urine protein assay by test strip, semi-quantitative NEGATIVE NEGATIVE Urine glucose detection by automated test strip 4+ NEGATIVE Erythrocytes detection in urine sediment by light microscopy NEGATIVE NEGATIVE Urine ketones detection by automated test strip NEGATIVE NEGATIVE Urine nitrite detection by test strip NEGATIVE NEGATIVE Urine total bilirubin detection by test strip NEGATIVE NEGATIVE Urine urobilinogen measurement by automated test strip (mass/volume) NORMAL NORMAL Urine leukocyte esterase detection by dipstick NEGATIVE NEGATIVE Automated urine sediment erythrocyte count by microscopy (number/high power field) NONE NRG Automated urine sediment leukocyte count by microscopy (number/high power field ) NONE NRG Bacteria detection in urine sediment by light microscopy NEGATIVE NRG Squamous epithelial cells detection in urine sediment by light microscopy RARE NRG Crystals detection in urine sediment by light microscopy NONE NRG Casts detection in urine sediment by light microscopy NONE NRG Mucus detection in urine sediment by light microscopy NEGATIVE NRG Complete urinalysis with reflex to culture NO NRG Capillary blood glucose measurement by glucometer (mass/volume) - 06/06/17 18: 05 Capillary blood glucose measurement by glucometer (mass/volume) 230 mg/dL 70-110 Serum or plasma choriogonadotropin ( test) detection - 07/20/17 20:13 Serum or plasma choriogonadotropin ( test) detection NEGATIVE NEGATIVE Complete blood count (CBC) with automated white blood cell (WBC) differential - 07/20/17 20:15 Blood leukocytes automated count (number/volume) 7.5 10*3/uL 4.3-11.0 Blood erythrocytes automated count (number/volume) 3.85 10*6/uL 4.35-5.85 Venous blood hemoglobin measurement (mass/volume) 12.3 g/dL 11.5-16.0 Blood hematocrit (volume fraction) 35 % 35-52 Automated erythrocyte mean corpuscular volume 92 [foz_us] 80-99 Automated erythrocyte mean corpuscular hemoglobin (mass per erythrocyte) 32 pg 25-34 Automated erythrocyte mean corpuscular hemoglobin concentration measurement ( mass/volume) 35 g/dL 32-36 Automated erythrocyte distribution width ratio 11.6 % 10.0-14.5 Automated blood platelet count (count/volume) 212 10*3/uL 130-400 Automated blood platelet mean volume measurement 12.6 [foz_us] 7.4-10.4 Automated blood neutrophils/100 leukocytes 66 % 42-75 Automated blood lymphocytes/100 leukocytes 28 % 12-44 Blood monocytes/100 leukocytes 5 % 0-12 Automated blood eosinophils/100 leukocytes 1 % 0-10 Automated blood basophils/100 leukocytes 0 % 0-10 Blood neutrophils automated count (number/volume) 4.9 10*3 1.8-7.8 Blood lymphocytes automated count (number/volume) 2.1 10*3 1.0-4.0 Blood monocytes automated count (number/volume) 0.4 10*3 0.0-1.0 Automated eosinophil count 0.1 10*3/uL 0.0-0.3 Automated blood basophil count (count/volume) 0.0 10*3/uL 0.0-0.1 Capillary blood glucose measurement by glucometer (mass/volume) - 07/20/17 20: 15 Capillary blood glucose measurement by glucometer (mass/volume) > mg /dL 70-110 Fibrin D-dimer FEU measurement in platelet poor plasma (mass/volume) - 20:15 Fibrin D-dimer FEU measurement in platelet poor plasma (mass/volume) 0.81 ug/mL 0.00-0.49 Comprehensive metabolic panel - 07/20/17 20:40 Serum or plasma sodium measurement (moles/volume) 132 mmol/L 135-145 Serum or plasma potassium measurement (moles/volume) 3.8 mmol/L 3.6-5.0 Serum or plasma chloride measurement (moles/volume) 100 mmol/L 98-107 Carbon dioxide 20 mmol/L 21-32 Serum or plasma anion gap determination (moles/volume) 12 mmol/L 5-14 Serum or plasma urea nitrogen measurement (mass/volume) 11 mg/dL 7-18 Serum or plasma creatinine measurement (mass/volume) 1.24 mg/dL 0.60-1.30 Serum or plasma urea nitrogen/creatinine mass ratio 9 NRG Serum or plasma creatinine measurement with calculation of estimated glomerular filtration rate 50 NRG Serum or plasma glucose measurement (mass/volume) 795 mg/dL 70-105 Serum or plasma calcium measurement (mass/volume) 8.8 mg/dL 8.5-10.1 Serum or plasma total bilirubin measurement (mass/volume) 0.5 mg/dL 0.1-1.0 Serum or plasma alkaline phosphatase measurement (enzymatic activity/volume) 120 U/L 40-136 Serum or plasma aspartate aminotransferase measurement (enzymatic activity/ volume) 65 U/L 5-34 Serum or plasma alanine aminotransferase measurement (enzymatic activity/volume ) 44 U/L 0-55 Serum or plasma protein measurement (mass/volume) 6.7 g/dL 6.4-8.2 Serum or plasma albumin measurement (mass/volume) 3.6 g/dL 3.2-4.5 Magnesium - 07/20/17 20:40 Magnesium 2.0 mg/dL 1.8-2.4 Serum or plasma troponin i.cardiac measurement (mass/volume) - 07/20/17 20:40 Serum or plasma troponin i.cardiac measurement (mass/volume) < ng/ mL <0.30 THYROID STIMULATING HORMONE - 07/20/17 20:40 THYROID STIMULATING HORMONE 1.76 u[iU]/mL 0.35-4.94 Serum or plasma thyroxine (T4) free measurement (mass/volume) - 07/20/17 20:40 Serum or plasma thyroxine (T4) free measurement (mass/volume) 0.89 ng/dL 0.70-1.48 Capillary blood glucose measurement by glucometer (mass/volume) - 07/20/17 21: 02 Capillary blood glucose measurement by glucometer (mass/volume) 555 mg/dL 70-110 Arterial blood gas measurement - 07/20/17 21:39 Blood pCO2 35 mm[Hg] 35-45 Blood pO2 93 mm[Hg] 79-93 Arterial blood bicarbonate measurement (moles/volume) 20 mmol/L 23-27 Arterial blood base excess by calculation -4.8 mmol/L - 2.5-2.5 Arterial blood oxygen saturation measurement 99 % 94-100 * Inhaled oxygen flow rate ROOM AIR NRG Arterial blood pH measurement with patient temperature correction 7.36 7.37-7.43 Arterial blood carbon dioxide, total measurement (moles/volume) 20.9 mmol/L 21.0-31.0 Body site RT RAD NRG Assessment of wrist artery patency prior to arterial puncture YES- POS NRG Setting of ventilation mode NO NRG Measurement of body temperature 97.3 NRG Complete urinalysis with reflex to culture - 07/20/17 21:44 Urine color determination YELLOW NRG Urine clarity determination CLEAR NRG Urine pH measurement by test strip 6.5 5-9 Specific gravity of urine by test strip 1.005 1.016- 1.022 Urine protein assay by test strip, semi-quantitative 1+ NEGATIVE Urine glucose detection by automated test strip 4+ NEGATIVE Erythrocytes detection in urine sediment by light microscopy NEGATIVE NEGATIVE Urine ketones detection by automated test strip 1+ NEGATIVE Urine nitrite detection by test strip POSITIVE NEGATIVE Urine total bilirubin detection by test strip NEGATIVE NEGATIVE Urine urobilinogen measurement by automated test strip (mass/volume) NORMAL NORMAL Urine leukocyte esterase detection by dipstick NEGATIVE NEGATIVE Automated urine sediment erythrocyte count by microscopy (number/high power field) NONE NRG Automated urine sediment leukocyte count by microscopy (number/high power field ) RARE NRG Bacteria detection in urine sediment by light microscopy TRACE NRG Crystals detection in urine sediment by light microscopy NONE NRG Casts detection in urine sediment by light microscopy NONE NRG Mucus detection in urine sediment by light microscopy NEGATIVE NRG Complete urinalysis with reflex to culture YES NRG Urine drug screening test - 07/20/17 21:44 Urine phencyclidine detection by screening method NEGATIVE NEGATIVE Urine benzodiazepines detection by screening method NEGATIVE NEGATIVE Urine cocaine detection NEGATIVE NEGATIVE Urine amphetamines detection by screening method NEGATIVE NEGATIVE Urine methamphetamine detection by screening method NEGATIVE NEGATIVE Urine cannabinoids detection by screening method NEGATIVE NEGATIVE Urine opiates detection by screening method NEGATIVE NEGATIVE Urine barbiturates detection NEGATIVE NEGATIVE Screening urine tricyclic antidepressants detection NEGATIVE NEGATIVE Urine methadone detection by screening method NEGATIVE NEGATIVE Urine oxycodone detection NEGATIVE NEGATIVE Urine propoxyphene detection NEGATIVE NEGATIVE Bacterial urine culture - 07/20/17 21:44 Bacterial urine culture NG NRG Capillary blood glucose measurement by glucometer (mass/volume) - 07/20/17 21: 50 Capillary blood glucose measurement by glucometer (mass/volume) 397 mg/dL 70-110 Capillary blood glucose measurement by glucometer (mass/volume) - 07/20/17 23: 05 Capillary blood glucose measurement by glucometer (mass/volume) 235 mg/dL 70-110 Complete blood count (CBC) with automated white blood cell (WBC) differential - 07/20/17 23:50 Blood leukocytes automated count (number/volume) 7.8 10*3/uL 4.3-11.0 Blood erythrocytes automated count (number/volume) 3.62 10*6/uL 4.35-5.85 Venous blood hemoglobin measurement (mass/volume) 11.4 g/dL 11.5-16.0 Blood hematocrit (volume fraction) 33 % 35-52 Automated erythrocyte mean corpuscular volume 91 [foz_us] 80-99 Automated erythrocyte mean corpuscular hemoglobin (mass per erythrocyte) 32 pg 25-34 Automated erythrocyte mean corpuscular hemoglobin concentration measurement ( mass/volume) 34 g/dL 32-36 Automated erythrocyte distribution width ratio 11.4 % 10.0-14.5 Automated blood platelet count (count/volume) 181 10*3/uL 130-400 Automated blood platelet mean volume measurement 11.7 [foz_us] 7.4-10.4 Automated blood neutrophils/100 leukocytes 55 % 42-75 Automated blood lymphocytes/100 leukocytes 38 % 12-44 Blood monocytes/100 leukocytes 6 % 0-12 Automated blood eosinophils/100 leukocytes 1 % 0-10 Automated blood basophils/100 leukocytes 0 % 0-10 Blood neutrophils automated count (number/volume) 4.3 10*3 1.8-7.8 Blood lymphocytes automated count (number/volume) 2.9 10*3 1.0-4.0 Blood monocytes automated count (number/volume) 0.5 10*3 0.0-1.0 Automated eosinophil count 0.1 10*3/uL 0.0-0.3 Automated blood basophil count (count/volume) 0.0 10*3/uL 0.0-0.1 Whole blood basic metabolic panel - 07/20/17 23:50 Serum or plasma sodium measurement (moles/volume) 138 mmol/L 135-145 Serum or plasma potassium measurement (moles/volume) 3.4 mmol/L 3.6-5.0 Serum or plasma chloride measurement (moles/volume) 105 mmol/L 98-107 Carbon dioxide 22 mmol/L 21-32 Serum or plasma anion gap determination (moles/volume) 11 mmol/L 5-14 Serum or plasma urea nitrogen measurement (mass/volume) 10 mg/dL 7-18 Serum or plasma creatinine measurement (mass/volume) 0.77 mg/dL 0.60-1.30 Serum or plasma urea nitrogen/creatinine mass ratio 13 NRG Serum or plasma creatinine measurement with calculation of estimated glomerular filtration rate > NRG Serum or plasma glucose measurement (mass/volume) 207 mg/dL 70-105 Serum or plasma calcium measurement (mass/volume) 8.5 mg/dL 8.5-10.1 Hemoglobin A1c - 07/20/17 23:50 Hemoglobin A1c 12.5 % 4.5-6.2 Capillary blood glucose measurement by glucometer (mass/volume) - 07/20/17 23: 54 Capillary blood glucose measurement by glucometer (mass/volume) 208 mg/dL 70-110 Capillary blood glucose measurement by glucometer (mass/volume) - 07/21/17 01: 05 Capillary blood glucose measurement by glucometer (mass/volume) 109 mg/dL 70-110 Capillary blood glucose measurement by glucometer (mass/volume) - 07/21/17 01: 34 Capillary blood glucose measurement by glucometer (mass/volume) 103 mg/dL 70-110 Capillary blood glucose measurement by glucometer (mass/volume) - 07/21/17 02: 08 Capillary blood glucose measurement by glucometer (mass/volume) 151 mg/dL 70-110 Whole blood basic metabolic panel - 07/21/17 05:00 Serum or plasma sodium measurement (moles/volume) 137 mmol/L 135-145 Serum or plasma potassium measurement (moles/volume) 3.9 mmol/L 3.6-5.0 Serum or plasma chloride measurement (moles/volume) 107 mmol/L 98-107 Carbon dioxide 22 mmol/L 21-32 Serum or plasma anion gap determination (moles/volume) 8 mmol/L 5-14 Serum or plasma urea nitrogen measurement (mass/volume) 10 mg/dL 7-18 Serum or plasma creatinine measurement (mass/volume) 0.64 mg/dL 0.60-1.30 Serum or plasma urea nitrogen/creatinine mass ratio 16 NRG Serum or plasma creatinine measurement with calculation of estimated glomerular filtration rate > NRG Serum or plasma glucose measurement (mass/volume) 248 mg/dL 70-105 Serum or plasma calcium measurement (mass/volume) 8.0 mg/dL 8.5-10.1 Serum or plasma phosphate measurement (mass/volume) - 07/21/17 05:00 Serum or plasma phosphate measurement (mass/volume) 3.3 mg/dL 2.3-4.7 Magnesium - 07/21/17 05:00 Magnesium 1.7 mg/dL 1.8-2.4 Serum or plasma troponin i.cardiac measurement (mass/volume) - 07/21/17 05:00 Serum or plasma troponin i.cardiac measurement (mass/volume) < ng/ mL <0.30 Serum or plasma lithium measurement (moles/volume) - 07/21/17 05:00 BNP level 100.2 pg/mL <100.0 Capillary blood glucose measurement by glucometer (mass/volume) - 07/21/17 06: 25 Capillary blood glucose measurement by glucometer (mass/volume) 213 mg/dL 70-110 Capillary blood glucose measurement by glucometer (mass/volume) - 07/21/17 11: 14 Capillary blood glucose measurement by glucometer (mass/volume) 176 mg/dL 70-110 C-PEPTIDE, SERUM - 08/09/17 10:14 C-PEPTIDE 0.10 ng/mL 0.80-3.85 Encounters ACCT No. Visit Date/Time Discharge Status Pt. Type Provider Facility Loc./Unit Complaint [id number] 11/22/2014 15:35:00 11/22/2014 23:59:59 CLS Outpatient HIEU PEDRAZA DO [id number] 11/14/2014 16:19:00 11/14/2014 23:59:59 CLS Outpatient MYNOR GOLDMAN APRN [id number] 10/24/2014 09:52:00 10/24/2014 23:59:59 CLS Outpatient MEGHNA HYMAN DDS [id number] 06/27/2014 15:51:00 06/27/2014 23:59:59 CLS Outpatient TRISTAN BERMEO MD [id number] 06/06/2014 17:42:00 06/06/2014 23:59:59 CLS Outpatient ABBY GARCIA APRN [id number] 04/23/2014 17:17:00 04/23/2014 23:59:59 CLS Outpatient HIEU PEDRAZA DO [id number] 03/26/2014 15:01:00 03/26/2014 23:59:59 CLS Outpatient RIGOBERTO BRANHAM APRN [id number] 03/21/2014 13:51:00 03/21/2014 23:59:59 CLS Outpatient CUONG PHILIP PRATER [id number] 02/11/2014 14:06:00 02/11/2014 23:59:59 CLS Outpatient TRAE GAO LCPC [id number] 02/08/2014 14:56:00 02/08/2014 23:59:59 CLS Outpatient HIEU PEDRAZA DO [id number] 11/22/2013 16:08:00 11/22/2013 23:59:59 CLS Outpatient MYNOR GOLDMAN APRN [id number] 11/12/2013 15:55:00 11/12/2013 23:59:59 CLS Outpatient MYNOR GOLDMAN APRN [id number] 10/29/2013 17:31:00 10/29/2013 23:59:59 CLS Outpatient HIEU PEDRAZA DO [id number] 10/26/2013 14:18:00 10/26/2013 23:59:59 CLS Outpatient HIEU PEDRAZA DO [id number] 10/03/2013 15:14:00 10/03/2013 23:59:59 CLS Outpatient GALLO BARRON MD [id number] 06/26/2013 10:22:00 06/26/2013 23:59:59 CLS Outpatient HIEU PEDRAZA DO [id number] 06/26/2013 10:22:00 06/26/2013 23:59:59 CLS Outpatient DARION GOLDMAN APRNADAN Palomares [id number] 01/10/2013 14:46:00 01/10/2013 23:59:59 CLS Outpatient ANGELA DAVIDSON APRN [id number] 04/27/2012 14:02:00 04/27/2012 23:59:59 CLS Outpatient [id number] 04/27/2012 14:02:00 04/27/2012 23:59:59 CLS Outpatient [id number] 01/10/2013 14:46:00 Document Registration [id number] 12/20/2012 11:10:00 Document Registration [id number] 03/04/2017 22:07:00 Document Registration [id number] 12/08/2017 14:00:00 12/08/2017 23:59:59 CLS Outpatient ELVIE WILDE, TRISTAN [facility] [id number] 08/09/2017 09:40:00 Document Registration [id number] 11/16/2017 10:48:00 11/16/2017 23:59:59 CLS Preadmit MINISTERIO ARZOLA [facility] REHAB L SHOULDER PAIN [id number] 07/20/2017 22:25:00 07/21/2017 16:50:00 DIS Inpatient NELA BRUNSON MD [facility] ICU HYPERGLYCEMIA,SVT [id number] 06/06/2017 12:47:00 06/06/2017 18:27:00 DIS Emergency NILA PETER [facility] ER HIGH BLOOD SUGAR [id number] 06/03/2017 12:16:00 06/03/2017 15:17:00 DIS Emergency HEIDY GARCIA MD [facility] ER HYPOGLYCEMIA [id number] 03/18/2017 20:51:00 03/18/2017 23:07:00 DIS Emergency SKYE LAKE DO [facility] ER HIGH BLOOD SUGAR,RASH ON BUTTOCKS [id number] 06/05/2016 18:27:00 06/05/2016 19:47:00 DIS Emergency ARNULFO DUKE [employer] [facility] ER L EYE/FACIAL SWELLING [id number] 12/21/2015 21:19:00 12/22/2015 01:02:00 DIS Emergency USHA VIDAL MD [facility] ER HIGH BLOOD SUGAR [id number] 02/10/2015 00:40:00 02/10/2015 11:10:00 DIS Inpatient JANY PEDRAZA DOMarielle Feng [address] [id number] 02/07/2015 20:57:00 02/07/2015 22:47:00 DIS Emergency USHA VIDAL MD [facility] ER [id number] 04/09/2014 22:15:00 04/09/2014 23:45:00 DIS Emergency SKYE LAKE DO Via [facility] [id number] 03/19/2014 21:20:00 03/20/2014 16:21:00 DIS Inpatient HIEU PEDRAZA DO Via [address] [id number] 12/22/2013 10:51:00 12/22/2013 13:40:00 DIS Emergency ARNULFO DUKE APRN [facility] ER [id number] 10/01/2013 08:52:00 10/01/2013 13:21:00 DIS Emergency HEIDY GARCIA MD [facility] ER [id number] 09/06/2013 19:15:00 09/06/2013 22:20:00 DIS Emergency JAMILA PEREZ MD [facility] ER [id number] 07/15/2013 18:44:00 07/15/2013 19:04:00 DIS Emergency YOUNG WILDE, USHA Barbosa [facility] ER [id number] 07/14/2013 12:21:00 07/14/2013 15:05:00 DIS Emergency ARNULFO DUKE APRN [facility] ER [id number] 01/10/2013 20:50:00 01/12/2013 12:55:00 DIS Inpatient ELVIE WILDE, TRISTAN Ashby Via [address] [id number] 11/22/2012 16:10:00 Document Registration [id number] 11/13/2012 16:05:00 Document Registration [id number] 11/02/2012 22:47:00 Document Registration [id number] 09/10/2012 14:06:00 Document Registration [id number] 09/10/2012 12:19:00 Document Registration [id number] 06/19/2012 09:59:00 Document Registration [id number] 05/02/2012 14:09:00 Document Registration [id number] 04/27/2012 09:25:00 Document Registration [id number] 02/07/2012 13:19:00 Document Registration [id number] 02/03/2012 16:31:00 Document Registration [id number] 01/15/2012 19:54:00 Document Registration [id number] 01/11/2012 05:36:00 Document Registration [id number] 01/10/2012 14:53:00 Document Registration [id number] 01/09/2012 19:38:00 Document Registration [id number] 09/25/2011 12:25:00 Document Registration [id number] 03/02/2017 19:06:00 Document Registration [id number] 03/03/2017 14:09:00 Document Registration
[2017-12-23] MEDS ORDERED: METO50TA15 PO (09:54)
[2017-12-23] MEDS ORDERED: METF10002 PO (09:54)
[2017-12-23] MEDS ORDERED: IBUP-1773 PO (09:54)
[2017-12-23] MEDS ORDERED: INSU100I14 SC (09:54)
[2017-12-23] MEDS ORDERED: [UNRECOGNIZED DRUG - OTHER] (09:55)
[2017-12-23] MEDS ORDERED: D-ME118S33 PO (10:40)
[2017-12-23] MEDS ORDERED: AZIT250T12 PO (10:40)
--- NOTE | 2017-12-23 10:41 | ED Respiratory ---
General Chief Complaint: Cough/Cold/Flu Symptoms Stated Complaint: HEAD CONGESTION/COUGH SOA Nursing Triage Note: TO ROOM C/O COUGH CONGESTION RUNNY NOSE. Source: patient Exam Limitations: no limitations History of Present Illness Date Seen by Provider: December 23, 2017 Time Seen by Provider: 10:35 Initial Comments To ER with nasal congestion, rhinorrhea, nonproductive cough since yesterday. No fevers or chills. Timing/Duration: constant, yesterday Severity: moderate Associated Symptoms: cough; No fever/chills Allergies and Home Medications Allergies Coded Allergies: No Known Drug Allergies (Unverified , 09/25/11) Home Medications Insulin Aspart 100 Unit/1 Ml Susp, 20 UNIT SQ AC Prescribed by: NELA LUNA on 07/21/17 1023 Metformin HCl 1,000 Mg Tablet, 1,000 MG PO BID, (Reported) Patient Home Medication List Home Medication List Reviewed: Yes Review of Systems Constitutional: see HPI EENTM: see HPI, nose congestion Respiratory: see HPI, cough Cardiovascular: no symptoms reported Genitourinary: no symptoms reported Musculoskeletal: no symptoms reported Skin: no symptoms reported Psychiatric/Neurological: No Symptoms Reported Hematologic/Lymphatic: No Symptoms Reported Past Xhekavx-Rtarni-Nlvphl Hx Patient Social History Alcohol Use: Denies Use Recreational Drug Use: No Smoking Status: Current Everyday Smoker Type Used: Cigarettes 2nd Hand Smoke Exposure: Yes Recent Foreign Travel: No Contact w/Someone Who Travel: No Recent Infectious Disease Expo: No Recent Hopitalizations: No Immunizations Up To Date Tetanus Booster (TDap): More than 5yrs PED Vaccines UTD: No Date of Pneumonia Vaccine: Sep 26, 2011 Date of Influenza Vaccine: May 22, 2017 Seasonal Allergies Seasonal Allergies: No Past Medical History Surgeries: Yes Gallbladder Respiratory: No Cardiac: Yes (TACHYCARDIA BY HISTORY ) Heart Murmur Neurological: No Reproductive Disorders: No 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 Sexually Transmitted Disease: No HIV/AIDS: No Genitourinary: Yes UTI-Chronic Gastrointestinal: Yes (S/P LPÓEZ) Gall Bladder Disease Musculoskeletal: No Endocrine: Yes (DX AGE 13) Diabetes, Non-Insulin dep HEENT: No Cancer: No Psychosocial: Yes (SUICIDE ATTEMPT AT AGE 13 Y/O) Anxiety, Suicide Attempts, Depression Integumentary: No Blood Disorders: Yes (ANEMIA) Adverse Reaction/Blood Tranf: No Family Medical History Family history: Diabetes mellitus 19 MOTHER No Pertinent Family Hx Physical Exam Vital Signs Vital Signs - First Documented 12/23/17 09:34 Temp 97.3 Pulse 108 Resp 18 B/P (MAP) 116/86 (96) Pulse Ox 100 O2 Delivery Room Air Capillary Refill : Less Than 3 Seconds General Appearance: WD/WN, no apparent distress Eyes: Bilateral Eye Normal Inspection, Bilateral Eye PERRL, Bilateral Eye EOMI HEENT: PERRL/EOMI, normal ENT inspection Neck: non-tender, full range of motion Respiratory: normal breath sounds, no respiratory distress, no accessory muscle use Cardiovascular: regular rate, rhythm, no murmur Gastrointestinal: normal bowel sounds, non tender, soft Extremities: normal range of motion, non-tender Neurologic/Psychiatric: alert, normal mood/affect, oriented x 3 Skin: normal color, warm/dry (She) Progress/Results/Core Measures Suspected Sepsis Recent Fever Within 48 Hours: No Infection Criteria Present: None New/Unexplained Altered Menta: No Sepsis Screen: No Definite Risk SIRS Temperature:97.3 Pulse: 108 Respiratory Rate: 18 Blood Pressure 116 /86 Mean: 96 Results/Orders Vital Signs/I&O 12/23/17 09:34 Temp 97.3 Pulse 108 Resp 18 B/P (MAP) 116/86 (96) Pulse Ox 100 O2 Delivery Room Air Capillary Refill : Less Than 3 Seconds Blood Pressure Mean: 96 Departure Impression Primary Impression: Upper respiratory infection Disposition: 01 HOME, SELF-CARE Condition: Stable Departure-Patient Inst. Decision time for Depature: 10:38 Referrals: [facility] (PCP/Family) Primary Care Physician Patient Instructions: NO INSTRUCTIONS GIVEN Add. Discharge Instructions: 1. Return to ER for any concerns 2. Follow up with your doctor next week All discharge instructions reviewed with patient and/or family. Voiced understanding. Scripts Azithromycin (Azithromycin) 250 Mg Tablet 250 MG PO UD, #6 TAB TAKE 2 TABLETS ON DAY ONE THEN TAKE 1 TABLET DAILY FOR FOUR MORE DAYS Prov: ARNULFO DUKE APRN 12/23/17 D-Methorphan Hb/P-Epd HCl/Bpm (Bromfed Dm Cough Syrup) 118 Ml Syrup 5 ML PO Q4H PRN for CONGESTION, #120 ML Prov: ARNULFO DUKE APRN 12/23/17 Work/School Note: Work Release Form Date Seen in the Emergency Department: December 23, 2017 Return to Work: December 24, 2017 ARNULFO DUKE APRN December 23, 2017 10:40
[2017-12-23 10:46] VITALS: BP 116/86
== END 2017-12-23 10:46 | disposition home or self-care (01) ==
LOC: EDUNIT# 09:17 → ER 09:19
DX: J06.9 Acute upper respiratory infection, unspecified (principal); E11.9 Type 2 diabetes mellitus without complications; F41.9 Anxiety disorder, unspecified; F32.9 Major depressive disorder, single episode, unspecified; F17.210 Nicotine dependence, cigarettes, uncomplicated; Z79.4 Long term (current) use of insulin; Z91.5 Personal history of self-harm; Z97.5 Presence of (intrauterine) contraceptive device; Z87.440 Personal history of urinary (tract) infections; Z90.49 Acquired absence of other specified parts of digestive tract
CPT/HCPCS: 99282

== ENCOUNTER 2018-01-01 17:31 | Inpatient (IN) | payer SELFPAY ==
[~2018-01-01] VITALS: Ht 162.6 cm; Wt 89.5 kg
[2018-01-01] VITALS (16 sets, daily range): BP systolic 67–87; BP diastolic 32–52
[~2018-01-01 17:31] MED LIST changes: +AZIT250T12 PO; +D-ME118S33 PO; +IBUP-1773 PO; +INSU100I14 SC; +METF10002 PO; +METO50TA15 PO; +[UNRECOGNIZED DRUG - OTHER]
[2018-01-01] MEDS ORDERED: inSUlin (REGULAR) HUMAN 1 UNIT/0.01 ML (CHARGE PER UNIT) IV ONE (17:45)
[2018-01-01] MEDS ORDERED: ONDANSETRON 4 MG/2 ML (SDV) Z0FRAN IVP ONE (17:45)
--- NOTE | 2018-01-01 17:49 | ED General ---
General Stated Complaint: N/V Source of Information: Patient Exam Limitations: No Limitations History of Present Illness Date Seen by Provider: January 01, 2018 Time Seen by Provider: 17:47 Initial Comments To ER per EMS from home with reports of nausea vomiting and hyperglycemia. She is a known diabetic. She's been out of her Levemir since Tuesday12/28/17. She is not taken her NovoLog since yesterday because of nausea and vomiting. EMS found blood sugar to be 480. Timing/Duration: 1-2 Days Severity: Moderate Associated Systoms: Malaise, Nausea/Vomiting Allergies and Home Medications Allergies Coded Allergies: No Known Drug Allergies (Unverified , 09/25/11) Home Medications Azithromycin 250 Mg Tablet, 250 MG PO UD TAKE 2 TABLETS ON DAY ONE THEN TAKE 1 TABLET DAILY FOR FOUR MORE DAYS Prescribed by: ARNULFO DUKE on 12/23/17 1040 D-Methorphan Hb/P-Epd HCl/Bpm 118 Ml Syrup, 5 ML PO Q4H PRN for CONGESTION Prescribed by: ARNULFO DUKE on 12/23/17 1040 Insulin Aspart 100 Unit/1 Ml Susp, 20 UNIT SQ AC Prescribed by: NELA LUNA on 07/21/17 1023 Metformin HCl 1,000 Mg Tablet, 1,000 MG PO BID, (Reported) Patient Home Medication List Home Medication List Reviewed: Yes Review of Systems Constitutional: see HPI EENTM: see HPI Respiratory: no symptoms reported Cardiovascular: no symptoms reported Genitourinary: no symptoms reported Musculoskeletal: no symptoms reported Skin: no symptoms reported Psychiatric/Neurological: No Symptoms Reported Hematologic/Lymphatic: No Symptoms Reported Past Ynegbem-Ctdtdb-Cprsgh Hx Patient Social History Type Used: Cigarettes 2nd Hand Smoke Exposure: Yes Recent Hopitalizations: No Immunizations Up To Date Tetanus Booster (TDap): More than 5yrs PED Vaccines UTD: No Date of Pneumonia Vaccine: Sep 26, 2011 Date of Influenza Vaccine: May 22, 2017 Seasonal Allergies Seasonal Allergies: No Past Medical History Surgeries: Yes Gallbladder Respiratory: No Cardiac: Yes (TACHYCARDIA BY HISTORY ) Heart Murmur Neurological: No Reproductive Disorders: No COMBAT CONTROL History: IUD Sexually Transmitted Disease: No HIV/AIDS: No Genitourinary: Yes UTI-Chronic Gastrointestinal: Yes (S/P LÓPEZ) Gall Bladder Disease Musculoskeletal: No Endocrine: Yes (DX AGE 13) Diabetes, Non-Insulin dep HEENT: No Cancer: No Psychosocial: Yes (SUICIDE ATTEMPT AT AGE 13 Y/O) Anxiety, Suicide Attempts, Depression Integumentary: No Blood Disorders: Yes (ANEMIA) Adverse Reaction/Blood Tranf: No Family Medical History Family history: Diabetes mellitus 19 MOTHER No Pertinent Family Hx Physical Exam Vital Signs Vital Signs - First Documented 01/01/18 17:31 Temp 99.0 Pulse 93 Resp 18 B/P (MAP) 124/90 (101) Pulse Ox 97 Capillary Refill : General Appearance: No Apparent Distress, Chronically ill, Obese Eyes: Bilateral Eye Normal Inspection, Bilateral Eye PERRL, Bilateral Eye EOMI HEENT: PERRL/EOMI, TMs Normal Neck: Full Range of Motion, Normal Inspection Respiratory: Normal Breath Sounds, No Accessory Muscle Use, No Respiratory Distress Cardiovascular: Regular Rate, Rhythm, Normal Peripheral Pulses Gastrointestinal: Normal Bowel Sounds, Non Tender, Soft Extremity: Normal Capillary Refill, Normal Inspection Neurologic/Psychiatric: Alert, Oriented x3, No Motor/Sensory Deficits Skin: Normal Color, Warm/Dry Progress/Results/Core Measures Suspected Sepsis SIRS Temperature: Pulse: Respiratory Rate: Laboratory Tests 01/01/18 17:45: White Blood Count 17.3H Blood Pressure / Mean: Laboratory Tests 01/01/18 17:45: Creatinine 3.57H, Platelet Count 319, Total Bilirubin 0.5 Results/Orders Lab Results Laboratory Tests Test 01/01/18 17:41 01/01/18 17:45 01/01/18 18:09 01/01/18 18:30 Range/Units Glucometer 489 *H 70-110 MG/DL White Blood Count 17.3 H 4.3-11.0 10^3/uL Red Blood Count 3.32 L 4.35-5.85 10^6/uL Hemoglobin 10.5 L 11.5-16.0 G/DL Hematocrit 32 L 35-52 % Mean Corpuscular Volume 96 80-99 FL Mean Corpuscular Hemoglobin 32 25-34 PG Mean Corpuscular Hemoglobin Concent 33 32-36 G/DL Red Cell Distribution Width 12.3 10.0-14.5 % Platelet Count 319 130-400 10^3/uL Mean Platelet Volume 11.3 H 7.4-10.4 FL Neutrophils (%) (Auto) 87 H 42-75 % Lymphocytes (%) (Auto) 9 L 12-44 % Monocytes (%) (Auto) 4 0-12 % Eosinophils (%) (Auto) 0 0-10 % Basophils (%) (Auto) 0 0-10 % Neutrophils # (Auto) 15.2 H 1.8-7.8 X 10^3 Lymphocytes # (Auto) 1.5 1.0-4.0 X 10^3 Monocytes # (Auto) 0.7 0.0-1.0 X 10^3 Eosinophils # (Auto) 0.0 0.0-0.3 10^3/uL Basophils # (Auto) 0.0 0.0-0.1 10^3/uL Neutrophils % (Manual) 84 % Lymphocytes % (Manual) 14 % Monocytes % (Manual) 2 % Blood Morphology Comment NORMAL Sodium Level 130 L 135-145 MMOL/L Potassium Level 6.2 H 3.6-5.0 MMOL/L Chloride Level 95 L 98-107 MMOL/L Carbon Dioxide Level 9 *L 21-32 MMOL/L Anion Gap 26 H 5-14 MMOL/L Blood Urea Nitrogen 50 H 7-18 MG/DL Creatinine 3.57 H 0.60-1.30 MG/DL Estimat Glomerular Filtration Rate 15 BUN/Creatinine Ratio 14 Glucose Level 518 *H 70-105 MG/DL Calcium Level 8.3 L 8.5-10.1 MG/DL Total Bilirubin 0.5 0.1-1.0 MG/DL Aspartate Amino Transf (AST/SGOT) 8 5-34 U/L Alanine Aminotransferase (ALT/SGPT) 13 0-55 U/L Alkaline Phosphatase 77 40-136 U/L Total Protein 7.0 6.4-8.2 GM/DL Albumin 4.1 3.2-4.5 GM/DL Blood Gas Puncture Site R RAD Blood Gas Patient Temperature 99 Arterial Blood pH 7.27 *L 7.37-7.43 Arterial Blood Partial Pressure CO2 29 L 35-45 MMHG Arterial Blood Partial Pressure O2 76 L 79-93 MMHG Arterial Blood HCO3 13 *L 23-27 MMOL/L Arterial Blood Total CO2 13.6 L 21.0-31.0 MMOL/L Arterial Blood Oxygen Saturation 95 94-100 % Arterial Blood Base Excess -12.8 L -2.5-2.5 MMOL/L Kevin Test YES-POS Blood Gas Ventilator Setting NO Blood Gas Inspired Oxygen RM AIR Urine Color YELLOW Urine Clarity VERY CLOUDY H Urine pH 5 5-9 Urine Specific Waves 1.020 1.016-1.022 Urine Protein 3+ H NEGATIVE Urine Glucose (UA) NEGATIVE NEGATIVE Urine Ketones 1+ H NEGATIVE Urine Nitrite NEGATIVE NEGATIVE Urine Bilirubin NEGATIVE NEGATIVE Urine Urobilinogen NORMAL NORMAL MG/DL Urine Leukocyte Esterase 3+ H NEGATIVE Urine RBC (Auto) 3+ H NEGATIVE Urine RBC RARE /HPF Urine WBC >100 H /HPF Urine Squamous Epithelial Cells >50 H /HPF Urine Crystals NONE /LPF Urine Bacteria LARGE H /HPF Urine Casts NONE /LPF Urine Mucus NEGATIVE /LPF Urine Culture Indicated YES My Orders Orders - ARNULFO DUKE APRN Cbc With Automated Diff (01/01/18 17:45) Comprehensive Metabolic Panel (01/01/18 17:45) Iv Heplock-Insert (Order) (01/01/18 17:45) Urine Bedside (01/01/18 17:45) Ns Iv 1000 Ml (Sodium Chloride 0.9%) (01/01/18 17:45) Ondansetron Injection (Zofran Injectio (01/01/18 17:45) Insulin (Regular) Human (Humulin R (Per (01/01/18 17:45) Ua Culture If Indicated (01/01/18 17:50) Urine Bedside (01/01/18 17:50) Manual Differential (01/01/18:45) Ketorolac Injection (Toradol Injection) (01/01/18 18:00) Arterial Blood Gas (01/01/18 18:11) Arterial Blood Draw (01/01/18 18:09) Insulin Regular Tpn/Drip Only (Humulin R (01/01/18 18:30) Ekg Tracing (01/01/18 18:19) Chest 1 View, Ap/Pa Only (01/01/18 18:19) Urine Culture (01/01/18 18:30) Ceftriaxone Injection (Rocephin Injectio (01/01/18 19:00) Insulin Determir (Per Unit) (Levemir (Pe (01/01/18 19:15) Medications Given in ED Current Medications Medications Dose Ordered Sig/Cha Route Start Time Stop Time Status Last Admin Dose Admin Insulin Human Regular 8 unit ONCE ONCE IV 01/01/18 17:45 01/01/18 17:47 DC 01/01/18 17:58 8 UNIT Ketorolac Tromethamine 15 mg ONCE ONCE IVP 01/01/18 18:00 01/01/18 18:01 DC 01/01/18 18:21 15 MG Ondansetron HCl 8 mg ONCE ONCE IVP 01/01/18 17:45 01/01/18 17:47 DC 01/01/18 17:58 8 MG Vital Signs/I&O 01/01/18 17:31 Temp 99.0 Pulse 93 Resp 18 B/P (MAP) 124/90 (101) Pulse Ox 97 Capillary Refill : Departure Communication (Admissions) Time/Spoke to Admitting Phy: 19:06 I discussed the case with Dr. Pedraza. She agrees to keep the patient here, hydrate , and sling drip/DKA protocol, repeat labs. 1906*- potassium 6.2, 2 L fluid bolus going, insulin bolus and insulin drip. EKG normal sinus without ectopy and normal QRS interval so no need for IV calcium at this time. I did also order for the patient's 25 units of Levemir insulin to be given at this time. Impression Primary Impression: Diabetic ketoacidosis Additional Impressions: Acute renal failure Urinary tract infection Disposition: ADMITTED INPATIENT Condition: Stable Admissions Decision to Admit Reason: Admit from ER (General) Decision to Admit/Date: January 01, 2018 Time/Decision to Admit Time: 19:05 Departure-Patient Inst. Referrals: [facility] (PCP/Family) Primary Care Physician Copy Copies To 2: HIEU PEDRAZA PETER J APRN January 01, 2018 17:49
[2018-01-01 17:51] LABS: BASOPHILS % (AUTO) 0 % (0-10); EOSINOPHILS % (AUTO) 0 % (0-10); HEMATOCRIT 32 % (35-52); HEMOGLOBIN 10.5 G/DL (11.5-16.0); LYMPHOCYTES # (AUTO) 1.5 X 10^3 (1.0-4.0); LYMPHOCYTES % (AUTO) 9 % (12-44); MEAN CORPUSCULAR HEMOGLOBIN 32 PG (25-34); MEAN CORPUSCULAR HGB CONC 33 G/DL (32-36); MEAN CORPUSCULAR VOLUME 96 FL (80-99); MEAN PLATELET VOLUME 11.3 FL (7.4-10.4); MONOCYTES # (AUTO) 0.7 X 10^3 (0.0-1.0); MONOCYTES % (AUTO) 4 % (0-12); NEUTROPHILS # (AUTO) 15.2 X 10^3 (1.8-7.8); NEUTROPHILS % (AUTO) 87 % (42-75); PLATELET COUNT 319 10^3/uL (130-400); RED BLOOD COUNT 3.32 10^6/uL (4.35-5.85); RED CELL DISTRIBUTION WIDTH 12.3 % (10.0-14.5); WHITE BLOOD COUNT 17.3 10^3/uL (4.3-11.0)
[2018-01-01] MEDS: NS IV 1000 ML 1,000 ML IV SCH ×2 (17:58→21:26)
[2018-01-01] MEDS ORDERED: KETOROLAC 30 MG/ML VIAL IVP ONE (18:00)
[2018-01-01 18:13] LABS: ALBUMIN 4.1 GM/DL (3.2-4.5); BILIRUBIN,TOTAL 0.5 MG/DL (0.1-1.0); CALCIUM 8.3 MG/DL (8.5-10.1); CREATININE SERUM 3.57 MG/DL (0.60-1.30); POTASSIUM 6.2 MMOL/L (3.6-5.0)
[2018-01-01 18:20] LABS: ABG BASE EXCESS -12.8 MMOL/L (-2.5-2.5); ABG OXYGEN SATURATION 95 % (94-100); ABG PCO2 29 MMHG (35-45); ABG PO2 76 MMHG (79-93); ABG TCO2 13.6 MMOL/L (21.0-31.0)
[2018-01-01 18:22] LABS: ABG PH 7.27 (7.37-7.43)
[2018-01-01 18:23] LABS: LYMPHOCYTES % (MANUAL) 14 %; MONOCYTES % (MANUAL) 2 %; NEUTROPHILS % (MANUAL) 84 %; RBC MORPH NORMAL
[2018-01-01 18:24] LABS: ALLENS TEST YES-POS; INSPIRED O2 RM AIR; PATIENT TEMP 99; VENTILATOR NO
[2018-01-01] MEDS ORDERED: inSUlin REGULAR TPN/DRIP ONLY 250 UNITS in NORMAL SALINE 250 ML IV SCH (18:30)
[2018-01-01 18:49] LABS: BILIRUBIN,URINE NEGATIVE (NEGATIVE); CLARITY,URINE VERY CLOUDY; COLOR,URINE YELLOW; GLUCOSE, URINE (UA) NEGATIVE (NEGATIVE); KETONES,URINE 1+ (NEGATIVE); LEUKOCYTE ESTERASE ,URINE 3+ (NEGATIVE); NITRITE,URINE NEGATIVE (NEGATIVE); PH,URINE 5 (5-9); PROTEIN,URINE 3+ (NEGATIVE); UROBILINOGEN,URINE NORMAL (NORMAL)
[2018-01-01 18:50] LABS: BACTERIA,URINE LARGE /HPF; RBC,URINE RARE /HPF; SQUAMOUS EPITHELIAL CELL,UR >50 /HPF; WBC,URINE >100 /HPF
--- NOTE | 2018-01-01 18:57 | Diagnostic Imaging Report ---
INDICATION: Nausea, vomiting. EXAMINATION: Portable chest at 6:24 p.m. FINDINGS: Heart size and pulmonary vascularity are normal. Lungs are clear. There are no effusions or pneumothoraces. IMPRESSION: Negative chest. Dictated by: Dictated on workstation # [id number]
[2018-01-01] MEDS ORDERED: cefTRIAXone INJECTION 1,000 MG in NS (IVPB) 50 ML IV ONE (19:00)
--- OUTSIDE RECORDS SUMMARY | 2018-01-01 19:10 | XMS REPORT ---
Author Author RTISTAN BERMEO [facility] Address [address] [place] [address] Care Team Providers Care Envelope Maker Name Role Phone TRISTAN BERMEO Unavailable PROBLEMS Type Condition ICD9-CM Code [id number] Code Onset Dates Condition Status SNOMED Code Problem Type 2 diabetes mellitus with diabetic polyneuropathy E11.42 Active 33033686 Problem Other chronic pain G89.29 Active 05914843 Problem Diabetic polyneuropathy associated with type 2 diabetes mellitus E11.42 Active 34337164 Problem MCC current use of insulin Z79.4 Active 647619640 Problem Venous insufficiency I87.2 Active 89241577 Problem Supraventricular arrhythmia I49.9 Active [id number] ALLERGIES No Information ENCOUNTERS Encounter Location Date Diagnosis [facility] [address] [address] Jan, [facility] [address] [address] December, [facility] [id number] [place] [address] December, Foul smelling urine R82.90 [facility] [id number] [place] [address]11- 2297 Nov, Neuritis M79.2 [facility] [id number] [place] [address] 11291- 1186 Nov, [facility] [address] [address] Oct, Impingement syndrome, shoulder, left M75.42 [facility] [address] [address] Oct, Diabetic polyneuropathy associated with type 2 diabetes mellitus E11.42 [facility] [id number] [place] [address] 23138- 2332 Oct, [facility] [id number] [place] [address] 48985- 7407 Sep, Type 2 diabetes mellitus with diabetic polyneuropathy E11.42 ; MCC current use of insulin Z79.4 ; Pain in left shoulder M25.512 and Other chronic pain G89.29 [facility] [id number] [place] [id number] Aug, Dental examination Z01.20 [facility] [id number] [place] [address] [id number] Aug, Dental examination Z01.20 [facility] [id number] [place] [address] 28829- 2733 Jul, [facility] [id number] [place] [address] 40505- 7366 Jul, Type 2 diabetes mellitus without complications E11.9 ; Diabetic polyneuropathy associated with type 2 diabetes mellitus E11.42 and Venous insufficiency I87.2 [facility] [id number] [place] [address] 68129- 4929 Jul, [facility] [address] [place] [address] 09544- 8762 Jul, Type 2 diabetes mellitus without complications E11.9 and Supraventricular arrhythmia I49.9 [facility] [id number] [place] [address]64 -1516 Jun, Candidiasis of female genitalia B37.3 [facility] [address] [place] [address] 82413- 3608 Jun, [facility] [id number] [place] [address] 98939- 5647 Jun, [facility] [id number] [place] [address] 38406- 2679 Jun, [facility] [id number] [address] May, Type 1 diabetes mellitus with hyperglycemia E10.65 [facility] [id number] [place] [address] 16765- 6765 May, Type 2 diabetes mellitus without complications E11.9 [facility] [address] [address] 7[address] May, [facility] [id number] [place] [address] 04521- 2821 May, [facility] [id number] [place] [address] 88574- 1752 May, Type 2 diabetes mellitus without complications E11.9 ; Encounter for immunization Z23 and Diabetic polyneuropathy associated with type 2 diabetes mellitus E11.42 [facility] [address] [address]- 5[address] May, [facility] [id number] [place] [address] 61484- 5816 Apr, [facility] [id number] [place] [address] 84314- 4591 Mar, [facility] [address] [place] [id number] [place] [address] Mar, [facility] [address] [place] [id number] [place] [address] Feb, [facility] [address] [address] Feb, Screen for STD (sexually transmitted disease) Z11.3 ; Vaginal itching L29.8 ; Urine abnormality R82.90 ; Acute vaginitis N76.0 and Acute cystitis with hematuria N30.01 [facility] [address] [address] Oct, Visit for TB skin test Z11.1 and Screening for tuberculosis Z11.1 [facility] [id number] [id number] Aug, Dental examination Z01.20 [facility] [id number] [place] [address] 47939- 8392 Jun, [facility] [id number] [place] [address] 57853- 9813 Jun, [facility] [id number] [place] [address] 56496- 0483 May, Contusion of periocular region, unspecified laterality, subsequent encounter S00.10XD [facility] [id number] [place] [address] 98111- 3563 May, [facility] [id number] [place] [address] 19829- 5878 Apr, Major depressive disorder, recurrent episode, moderate F33.1 [facility] [id number] [place] [address] 97651- 6256 Mar, Major depressive disorder, recurrent episode, moderate F33.1 [facility] [id number] [place] [address] 13486- 4037 Mar, Type 1 diabetes mellitus with hyperglycemia E10.65 [facility] [address] [place] [address] 97993- 2825 Jan, Type 1 diabetes mellitus with hyperglycemia E10.65 [facility] [id number] [place] [address] 26667- 7618 December, Type 2 diabetes mellitus without complications E11.9 and MCC current use of insulin Z79.4 [facility] [address] [address]- 70[address] Jan, [facility] [id number] [place] [address]78- 3283 Nov, [facility] [address] [address]- 8[address] Nov, [facility] [facility] [id number] [address] 30 Oct, 2014 [facility] [address] [id number] [place] [address]- [address] 29 Oct, 2014 [facility] [place] [facility] [address] [id number] [place] [address]- 5268 Oct, 2014 [facility] [place] [facility] [address] [id number] [place] [address]- 3534 Oct, 2014 [facility] [place] [facility] [address] [id number] [place] [address]- 7115 Oct, 2014 [facility] [place] [facility] [address] [id number] [place] [address]- 8288 Oct, 2014 [facility] [place] [facility] [address] [id number] [place] [address]- 8712 Oct, [facility] [place] [facility] [address] [id number] [place] [address]- 7845 Oct, [facility] [place] [facility] [address] [id number] [place] [address]- 8296 Jun, [facility] [place] [facility] [address] [id number] [place] [address]- 4493 Jun, [facility] [place] [facility] [address] [id number] [place] [address]- 7325 Jun, [facility] [place] [facility] [address] [id number] [place] [address]- 8701 Jun, [facility] [place] [facility] [address] [id number] [place] [address]- 1060 Jun, [facility] [place] [facility] [address] [id number] [place] [address]- 2498 Jun, [facility] [place] [facility] [address] [id number] [place] [address]- 0179 Jun, [facility] [place] [facility] [address] [id number] [place] [address]- 3237 Jun, [facility] [place] [facility] [address] [id number] [place] [address]- 1593 Jun, [facility] [place] [facility] [address] [id number] [place] [address]- 9270 Jun, [facility] [place] [facility] [address] [id number] [place] Jun, [facility] [place] [facility] [address] [id number] [place] [address]- 6697 Jun, [facility] [place] [facility] [address] [id number] [place] [address]- 4346 May, [facility] [place] [facility] [address] [id number] [place] [address]- 8064 May, [facility] [place] [facility] [address] [id number] [place] [address]- 9206 May, [facility] [place] [facility] [address] [id number] [place] [address]- 6111 May, [facility] [place] [facility] [address] [id number] [place] [address]- 3615 May, [facility] [place] [facility] [address] [id number] [place] [address]- 4777 May, [facility] [place] [facility] [address] [id number] [place] [address]- 3308 May, [facility] [place] [facility] [address] [id number] [address]- 2810 May, [facility] [place] [facility] [address] [id number] [place] [address]- 0495 May, [facility] [place] [facility] [address] [id number] [place] [address]- 1221 May, [facility] [place] [facility] [address] [id number] [address] Apr, [facility] [place] [facility] [address] [id number] [address]- 4820 Apr, [facility] [place] [facility] [address] [id number] [place] [address]- 1678 Mar, [facility] [place] [facility] [address] [id number] [place] [address]- 0938 Mar, [facility] [place] [facility] [address] [id number] [place] [address]- 3880 Mar, [facility] [place] [facility] [address] [id number] [place] [address]- 9216 Mar, [facility] [place] [facility] [address] [id number] [place] [address]- 3371 Mar, [facility] [place] [facility] [address] [id number] [place] [address]- 2858 Mar, [facility] [place] [facility] [address] [id number] [place] [address]- 1644 Feb, [facility] [place] [facility] [address] [id number] [place] [address]- 3259 Feb, [facility] [place] [facility] [address] [id number] [place] [address]- 6796 Feb, [facility] [place] [facility] [address] [id number] [place] [address]- 2590 Feb, [facility] [place] [facility] [address] [id number] [place] [address]- 7606 Jan, [facility] [place] [facility] [address] [id number] [place] [address]- 7293 Jan, [facility] [place] [facility] [address] [id number] [place] [address]- 4869 Jan, [facility] [place] [facility] [address] [id number] [place] [address]- 1869 Jan, [facility] [place] [facility] [address] [id number] [place] [address]- 2955 Jan, [facility] [place] [facility] [address] [id number] [place] [address]- 5933 Jan, [facility] [place] [facility] [address] [id number] [place] [address]- 8634 Jan, [facility] [place] [facility] [address] [id number] [place] [address]- 0697 Jan, [facility] [place] [facility] [address] [id number] [place] [address]- 2428 Nov, [facility] [place] [facility] [address] [id number] [place] [address]- 5695 Nov, [facility] [place] [facility] [address] [id number] [place] [address]- 3483 Oct, [facility] [place] [facility] [address] [id number] [place] [address]- 7226 Oct, [facility] [place] [facility] [address] [id number] [place] [address]- 1709 Oct, [facility] [place] [facility] [address] [id number] [place] [address]- 8106 Oct, [facility] [place] [facility] [address] [id number] [place] [address]- 4567 Oct, [facility] [place] [facility] [address] [id number] [place] [address]- 4385 Oct, [facility] [place] [facility] [address] [id number] [place] [address]- 1538 Sep, [facility] [place] [facility] [address] [id number] [place] [address]- 1561 Sep, [facility] [place] [facility] [address] [id number] [place] [address]- 5890 Jul, [facility] [place] [facility] [address] [id number] [place] 3003 Jul, [facility] [place] [facility] [address] [id number] [place] [address]- 0399 Jun, [facility] [place] [facility] [address] [id number] [place] [address]- 4778 Jun, [facility] [place] [facility] [address] [id number] [place] [address]- 3710 Jun, [facility] [place] [facility] [address] [id number] [place] [address]- 5042 Apr, [facility] [place] [facility] [address] [id number] [place] [address]- 2468 Feb, [facility] [place] [facility] [address] [id number] [place] [address]- 3803 Jan, [facility] [place] [facility] [address] [id number] [place] [address]- 4164 Jan, [facility] [place] [facility] [address] [id number] [place] [address]- 9429 December, [facility] [place] [facility] [address] [id number] [place] [address]- 2823 December, [facility] [place] [facility] [address] [id number] [place] [address]- 9362 Aug, [facility] [place] [facility] [address] [id number] [place] [address]- 6747 Jun, [facility] [place] [facility] [address] [id number] [address]- 2453 Jun, [facility] [place] [facility] [address] [id number], [place] [address]- 7088 May, [facility] [place] [facility] [address] [id number] [place] [address]- 8033 May, [facility] [place] [facility] [address] [id number] [address]- 6890 17 Apr, 2012 [facility] [place] [facility] [address] [id number] [place] [address]- 5173 10 Apr, 2012 [facility] [place] [facility] [address] [id number] [place] [address]- 2445 06 Apr, 2012 [facility] [place] [facility] [address] [id number] [place] [address]- 1558 Apr, [facility] [place] [facility] [address] [id number] [place] [address]- 9336 Mar, [facility] [place] [facility] [address] [id number] [place] [address]- 6103 Mar, [facility] [place] [facility] [address] [id number] [place] [address]- 3875 Mar, [facility] [place] [facility] [address] [id number] [place] [address]- 3639 Mar, [facility] [place] [facility] [address] [id number] [place] [address]- 6074 Mar, [facility] [place] [facility] [address] [id number] [place] [address]- 4500 Mar, [facility] [place] [facility] [address] [id number] [place] [address]- 5330 Mar, [facility] [place] [facility] [address] [id number] [place] [address]- 1018 Jan, [facility] [place] [facility] [address] [id number] [place] [address]- 6814 Jan, [facility] [place] [facility] [address] [id number] [place] [address]- 0522 Jan, [facility] [place] [facility] [address] [id number] [place] [address]- 5419 December, [facility] [place] [facility] [address] [id number] [place] [address]- 1418 December, [facility] [place] [facility] [address] [id number] [place] [address]- 9013 December, [facility] [place] [facility] [address] [id number] [place] [address] December, [facility] [id number] [address]- 9626 Nov, [facility] [id number] [address] 2546 Nov, [facility] [address] [address]- 2546 Oct, [facility] [address] [address]- 8906 Sep, [facility] [address] [address]- 2546 Sep, [facility] [address], [place] [address]- 2546 Sep, [facility] [address] [address]- 2546 Sep, [facility] [address] [address]- 0556 Sep, [facility] [address] [id number] [id number] Sep, [facility] [id number] [address]- 5016 Jun, [facility] [id number] [address]- 4526 Feb, IMMUNIZATIONS No Known Immunizations SOCIAL HISTORY Never Assessed REASON FOR VISIT PA initiated on gabapentin PLAN OF CARE VITAL SIGNS MEDICATIONS Unknown Medications RESULTS No Results PROCEDURES No Known procedures INSTRUCTIONS MEDICATIONS ADMINISTERED No Known Medications MEDICAL (GENERAL) HISTORY Type Description Date Medical History diabetes Hospitalization History one night stay for chest pains and SOB 06/2017
--- OUTSIDE RECORDS SUMMARY | 2018-01-01 19:11 | XMS REPORT ---
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 Name Role Phone TRISTAN BERMEO Unavailable PROBLEMS Type Condition ICD9-CM Code LHZ14-ES Code Onset Dates Condition Status SNOMED Code Problem Type 2 diabetes mellitus with diabetic polyneuropathy E11.42 Active 60090559 Problem Other chronic pain G89.29 Active 15870940 Problem Diabetic polyneuropathy associated with type 2 diabetes mellitus E11.42 Active 48056937 Problem FPC current use of insulin Z79.4 Active 008066821 Problem Venous insufficiency I87.2 Active 10954422 Problem Supraventricular arrhythmia I49.9 Active 47195979 ALLERGIES No Information ENCOUNTERS Encounter Location Date Diagnosis [facility] [address] [address] Jan, [facility] [address] [address] December, [facility] [id number] [place] [address] December, Foul smelling urine R82.90 [facility] [id number] [place] [address]40- 2361 Nov, Neuritis M79.2 [facility] [id number] [place] [address] 73718- 3572 Nov, [facility] [address] [address] Oct, Impingement syndrome, shoulder, left M75.42 [facility] [address] [address] Oct, Diabetic polyneuropathy associated with type 2 diabetes mellitus E11.42 [facility] [id number] [place] [address] 67025- 3095 Oct, [facility] [id number] [place] [address] 15220- 5099 Sep, Type 2 diabetes mellitus with diabetic polyneuropathy E11.42 ; FPC current use of insulin Z79.4 ; Pain in left shoulder M25.512 and Other chronic pain G89.29 [facility] [id number] [place] [address] [id number] Aug, Dental examination Z01.20 [facility] [id number] [place] [address] [id number] Aug, Dental examination Z01.20 [facility] [id number] [place] [address] 85747- 8779 Jul, [facility] [id number] [place] [address] 45613- 4130 Jul, Type 2 diabetes mellitus without complications E11.9 ; Diabetic polyneuropathy associated with type 2 diabetes mellitus E11.42 and Venous insufficiency I87.2 [facility] [id number] [place] [address] 85815- 6953 Jul, [facility] [id number] [place] [address] 28027- 6946 Jul, Type 2 diabetes mellitus without complications E11.9 and Supraventricular arrhythmia I49.9 [facility] [id number] [place] [address]4426 -6549 Jun, Candidiasis of female genitalia B37.3 [facility] [id number] [place] [address] 01333- 8537 Jun, [facility] [id number] [place] [address] 69301- 1895 Jun, [facility] [id number] [place] [address] 13889- 9400 Jun, [facility] [id number] [address] 7[address] May, Type 1 diabetes mellitus with hyperglycemia E10.65 [facility] [id number] [place] [address] 27405- 9549 May, Type 2 diabetes mellitus without complications E11.9 [facility] [address] [address] 84[address] May, [facility] [id number] [place] [address] 08074- 6554 May, [facility] [id number] [place] [address] 76854- 5160 May, Type 2 diabetes mellitus without complications E11.9 ; Encounter for immunization Z23 and Diabetic polyneuropathy associated with type 2 diabetes mellitus E11.42 [facility] [address] [address] 655[address] May, [facility] [id number] [place] [address] 34336- 0802 Apr, [facility] [id number] [place] [address] 77192- 1321 Mar, [facility] [address] [place] [id number] [place] [address] 31206 [address] Mar, [facility] [address] [place] [id number] [place] [address] Feb, [facility] [address] [address] Feb, Screen for STD (sexually transmitted disease) Z11.3 ; Vaginal itching L29.8 ; Urine abnormality R82.90 ; Acute vaginitis N76.0 and Acute cystitis with hematuria N30.01 [facility] [address] [address] Oct, Visit for TB skin test Z11.1 and Screening for tuberculosis Z11.1 [facility] [id number] [id number] Aug, Dental examination Z01.20 [facility] [id number] [place] [address]36- 8894 Jun, [facility] [id number] [place] [address] 92530- 1087 Jun, [facility] [id number] [place] [address] 45370- 4148 May, Contusion of periocular region, unspecified laterality, subsequent encounter S00.10XD [facility] [id number] [place] [address] 96513- 0774 May, [facility] [id number] [place] [address] 38777- 5619 Apr, Major depressive disorder, recurrent episode, moderate F33.1 [facility] [id number] [place] [address] 68904- 3957 Mar, Major depressive disorder, recurrent episode, moderate F33.1 [facility] [id number] [place] [address] 82264- 2714 Mar, Type 1 diabetes mellitus with hyperglycemia E10.65 [facility] [id number] [place] [address] 85815- 5772 Jan, Type 1 diabetes mellitus with hyperglycemia E10.65 [facility] [id number] [place] [address] 58888- 2454 December, Type 2 diabetes mellitus without complications E11.9 and [facility]PC current use of insulin Z79.4 [facility] [address] [address]- 9[address] Jan, [facility] [id number] [place] [address] 04163- 5568 Nov, [facility] [address] [address] 405[address] Nov, [facility] [id number] [place] [address] 30 Oct, 2014 [facility] [address] [id number] [place] [address]- 7398 29 Oct, 2014 [facility] [place] [facility] [address] [id number] [place] [address]- 8329 Oct, 2014 [facility] [place] [facility] [address] [id number] [place] [address]- 1537 Oct, 2014 [facility] [place] [facility] [address] [id number] [place] [address]- 8187 Oct, 2014 [facility] [place] [facility] [address] [id number] [place] [address]- 4774 Oct, 2014 [facility] [place] [facility] [address] [id number] [place] [address]- 4819 Oct, [facility] [place] [facility] [address] [id number] [place] [address]- 2008 Oct, [facility] [place] [facility] [address] [id number] [place] [address]- 3298 Jun, [facility] [place] [facility] [address] [id number] [place] [address]- 6444 Jun, [facility] [place] [facility] [address] [id number] [place] [address]- 9369 Jun, [facility] [place] [facility] [address] [id number] [place] [address]- 8584 Jun, [facility] [place] [facility] [address] [id number] [place] [address]- 2277 Jun, [facility] [place] [facility] [address] [id number] [place] [address]- 3699 Jun, [facility] [place] [facility] [address] [id number] [place] [address]- 3034 Jun, [facility] [place] [facility] [address] [id number] [place] [address]- 2164 Jun, [facility] [place] [facility] [address] [id number] [place] [address]- 2203 Jun, [facility] [place] [facility] [address] [id number] [place] [address]- 3033 Jun, [facility] [place] [facility] [address] [id number] [place] [address] Jun, [facility] [place] [facility] [address] [id number] [place] [address]- 1419 Jun, [facility] [place] [facility] [address] [id number] [place] [address]- 1909 May, [facility] [place] [facility] [address] [id number] [place] [address]- 0964 May, [facility] [place] [facility] [address] [id number] [place] [address]- 6181 May, [facility] [place] [facility] [address] [id number] [place] [address]- 6166 May, [facility] [place] [facility] [address] [id number] [place] [address]- 1491 May, [facility] [place] [facility] [address] [id number] [place] [address]- 2942 May, [facility] [place] [facility] [address] [id number] [place] [address]- 2893 May, [facility] [place] [facility] [address] [id number] [address]- 2532 May, [facility] [place] [facility] [address] [id number] [place] [address]- 8561 May, [facility] [place] [facility] [address] [id number] [place] [address]- 3636 May, [facility] [place] [facility] [address] [id number] [address]704 Apr, [facility] [place] [facility] [address] [id number], [place] [address]- 8582 Apr, [facility] [place] [facility] [address] [id number] [place] [address]- 9460 Mar, [facility] [place] [facility] [address] [id number] [place] [address]- 7839 Mar, [facility] [place] [facility] [address] [id number] [place] [address]- 0576 Mar, [facility] [place] [facility] [address] [id number] [place] [address]- 5349 Mar, [facility] [place] [facility] [address] [id number] [place] [address]- 9074 Mar, [facility] [place] [facility] [address] [id number] [place] [address]- 7520 Mar, [facility] [place] [facility] [address] [id number] [place] [address]- 7030 Feb, [facility] [place] [facility] [address] [id number] [place] [address]- 2306 Feb, [facility] [place] [facility] [address] [id number] [place] [address]- 1169 Feb, [facility] [place] [facility] [address] [id number] [place] [address]- 1821 Feb, [facility] [place] [facility] [address] [id number] [place] [address]- 3887 Jan, [facility] [place] [facility] [address] [id number] [place] [address]- 4221 Jan, [facility] [place] [facility] [address] [id number] [place] [address]- 1670 Jan, [facility] [place] [facility] [address] [id number] [place] [address]- 0651 Jan, [facility] [place] [facility] [address] [id number] [place] [address]- 3083 Jan, [facility] [place] [facility] [address] [id number] [place] [address]- 6541 Jan, [facility] [place] [facility] [address] [id number] [place] [address]- 2138 Jan, [facility] [place] [facility] [address] [id number] [place] [address]- 1948 Jan, [facility] [place] [facility] [address] [id number] [place] [address]- 0882 Nov, [facility] [place] [facility] [address] [id number] [place] [address]- 0119 Nov, [facility] [place] [facility] [address] [id number] [place] [address]- 7601 Oct, [facility] [place] [facility] [address] [id number] [place] [address]- 1352 Oct, [facility] [place] [facility] [address] [id number] [place] [address]- 6888 Oct, [facility] [place] [facility] [address] [id number] [place] [address]- 9904 Oct, [facility] [place] [facility] [address] [id number] [place] [address]- 0838 Oct, [facility] [place] [facility] [address] [id number] [place] [address]- 1086 Oct, [facility] [place] [facility] [address] [id number] [place] [address]- 1395 Sep, [facility] [place] [facility] [address] [id number] [place] [address]- 8667 Sep, [facility] [place] [facility] [address] [id number] [place] [address]- 1345 Jul, [facility] [place] [facility] [address] [id number] [place] 5850 Jul, [facility] [place] [facility] [address] [id number] [place] [address]- 9125 Jun, [facility] [place] [facility] [address] [id number] [place] [address]- 0980 Jun, [facility] [place] [facility] [address] [id number] [place] [address]- 5770 Jun, [facility] [place] [facility] [address] [id number] [place] [address]- 2318 Apr, [facility] [place] [facility] [address] [id number] [place] [address]- 7438 Feb, [facility] [place] [facility] [address] [id number] [place] [address]- 0604 Jan, [facility] [place] [facility] [address] [id number] [place] [address]- 4386 Jan, [facility] [place] [facility] [address] [id number] [place] [address]- 1380 December, [facility] [place] [facility] [address] [id number] [place] [address]- 7671 December, [facility] [place] [facility] [address] [id number] [place] [address]- 9801 Aug, [facility] [place] [facility] [address] [id number] [place] [address]- 7232 Jun, [facility] [place] [facility] [address] [id number], [place] [address]- 7183 Jun, [facility] [place] [facility] [address] [id number], [place] [address]- 3908 May, [facility] [place] [facility] [address] [id number] [place] [address]- 9810 May, [facility] [place] [facility] [address] [id number], [place] [address]- 8675 17 Apr, 2012 [facility] [place] [facility] [address] [id number] [place] [address]- 4134 10 Apr, 2012 [facility] [place] [facility] [address] [id number] [place] [address]- 1470 06 Apr, 2012 [facility] [place] [facility] [address] [id number] [place] [address]- 6120 Apr, [facility] [place] [facility] [address] [id number] [place] [address]- 3746 Mar, [facility] [place] [facility] [address] [id number] [place] [address]- 0582 Mar, [facility] [place] [facility] [address] [id number] [place] [address]- 1873 Mar, [facility] [place] [facility] [address] [id number] [place] [address]- 2491 Mar, [facility] [place] [facility] [address] [id number] [place] [address]- 4361 Mar, [facility] [place] [facility] [address] [id number] [place] [address]- 9296 Mar, [facility] [place] [facility] [address] [id number] [place] [address]- 5246 Mar, [facility] [place] [facility] [address] [id number] [place] [address]- 6795 Jan, [facility] [place] [facility] [address] [id number] [place] [address]- 8421 Jan, [facility] [place] [facility] [address] [id number] [place] [address]- 2838 Jan, [facility] [place] [facility] [address] [id number] [place] [address]- 1471 December, [facility] [place] [facility] [address] [id number] [place] [address]- 2638 December, [facility] [place] [facility] [address] [id number] [place] [address]- 7802 December, [facility] [place] [facility] [address] [id number] [place] [address]27 December, [facility] [id number] [address]- 1716 Nov, [facility] [id number] [address]- 8346 Nov, [facility] [id number] [address]- 2546 Oct, [facility] [address], [place] [address]- 8716 Sep, [facility] [address], [place] [address]- 8886 Sep, [facility] [address], [place] [address]- 2136 Sep, [facility] [address], [place] [address]- 5436 Sep, [facility] [id number], [place] [address]- 0636 Sep, [facility] [address] [id number] [id number] Sep, [facility] [id number] [address]- 4096 Jun, [facility] [id number], [place] [address]- 2806 Feb, IMMUNIZATIONS No Known Immunizations SOCIAL HISTORY Never Assessed REASON FOR VISIT Requests return call PLAN OF CARE VITAL SIGNS MEDICATIONS Unknown Medications RESULTS No Results PROCEDURES No Known procedures INSTRUCTIONS MEDICATIONS ADMINISTERED No Known Medications MEDICAL (GENERAL) HISTORY Type Description Date Medical History diabetes Hospitalization History one night stay for chest pains and SOB 06/2017
[2018-01-01] MEDS ORDERED: inSUlin DETERMIR 1 UNIT/0.01 ML (LEVEMIR) CHARGE PER UNIT SQ ONE (19:15)
--- OUTSIDE RECORDS SUMMARY | 2018-01-01 19:15 | XMS REPORT | Continuity of Care Document ---
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 Complete urinalysis with reflex to culture YES NRG Encounters ACCT No. Visit Date/Time Discharge Status Pt. Type Provider Facility Loc./Unit Complaint [id number] 11/22/2014 15:35:00 11/22/2014 23:59:59 CLS Outpatient HIEU PEDRAZA DO [id number] 11/14/2014 16:19:00 11/14/2014 23:59:59 CLS Outpatient MYNOR GOLDMAN APRN [id number] 10/24/2014 09:52:00 10/24/2014 23:59:59 CLS Outpatient MEGHNA HYMAN DDS [id number] 06/27/2014 15:51:00 06/27/2014 23:59:59 CLS Outpatient TRISTAN BERMEO MD [id number] 06/06/2014 17:42:00 06/06/2014 23:59:59 CLS Outpatient ABBY GARCIA APRN [id number] 04/23/2014 17:17:00 04/23/2014 23:59:59 CLS Outpatient MILO PRADOHIEU [id number] 03/26/2014 15:01:00 03/26/2014 23:59:59 CLS Outpatient RIGOBERTO BRANHAM APRN [id number] 03/21/2014 13:51:00 03/21/2014 23:59:59 CLS Outpatient PHILIP DAS [id number] 02/11/2014 14:06:00 02/11/2014 23:59:59 CLS Outpatient TRAE GAO LCPC [id number] 02/08/2014 14:56:00 02/08/2014 23:59:59 CLS Outpatient HIEU PEDRAZA DO [id number] 11/22/2013 16:08:00 11/22/2013 23:59:59 CLS Outpatient MYNOR GOLDMAN APRN [id number] 11/12/2013 15:55:00 11/12/2013 23:59:59 CLS Outpatient MYNOR GOLDMAN APRN [id number] 10/29/2013 17:31:00 10/29/2013 23:59:59 CLS Outpatient MILO PRADOHIEU [id number] 10/26/2013 14:18:00 10/26/2013 23:59:59 CLS Outpatient MILO PRADOHIEU [id number] 10/03/2013 15:14:00 10/03/2013 23:59:59 CLS Outpatient GALLO BARRON MD [id number] 06/26/2013 10:22:00 06/26/2013 23:59:59 CLS Outpatient PEDRAZA HIEU PRADO [id number] 06/26/2013 10:22:00 06/26/2013 23:59:59 CLS Outpatient MYNOR GOLDMAN APRN [id number] 01/10/2013 14:46:00 01/10/2013 23:59:59 CLS Outpatient ANGELA DAVIDSON APRN [id number] 04/27/2012 14:02:00 04/27/2012 23:59:59 CLS Outpatient [id number] 04/27/2012 14:02:00 04/27/2012 23:59:59 CLS Outpatient [id number] 01/10/2013 14:46:00 Document Registration [id number] 12/20/2012 11:10:00 Document Registration [id number] 03/04/2017 22:07:00 Document Registration [id number] 12/24/2017 16:10:00 12/24/2017 23:59:59 CLS Outpatient ELVIE WILDE, [facility] [id number] 08/09/2017 09:40:00 Document Registration [id number] 12/23/2017 09:19:00 12/23/2017 10:46:00 DIS Emergency ARNULFO DUKE APRN [facility] ER HEAD CONGESTION/COUGH SOA [id number] 11/16/2017 10:48:00 11/16/2017 23:59:59 CLS Preadmit MINISTERIO ARZOLA [facility] REHAB L SHOULDER PAIN [id number] 07/20/2017 22:25:00 07/21/2017 16:50:00 DIS Inpatient NELA BRUNSON MD [facility] ICU HYPERGLYCEMIA,SVT [id number] 06/06/2017 12:47:00 06/06/2017 18:27:00 DIS Emergency NILA PETER [facility] ER HIGH BLOOD SUGAR [id number] 06/03/2017 12:16:00 06/03/2017 15:17:00 DIS Emergency HEIDY GARCIA MD [facility] ER HYPOGLYCEMIA [id number] 03/18/2017 20:51:00 03/18/2017 23:07:00 DIS Emergency JAYASKYE Partida DO [facility] ER HIGH BLOOD SUGAR,RASH ON BUTTOCKS [id number] 06/05/2016 18:27:00 06/05/2016 19:47:00 DIS Emergency ARNULFO DUKE APRN [facility] ER L EYE/FACIAL SWELLING [id number] 12/21/2015 21:19:00 12/22/2015 01:02:00 DIS Emergency USHA VIDAL MD [facility] ER HIGH BLOOD SUGAR [id number] 02/10/2015 00:40:00 02/10/2015 11:10:00 DIS Inpatient HIEU PEDRAZA DO Via [address] [id number] 02/07/2015 20:57:00 02/07/2015 22:47:00 DIS Emergency YOUNG WILDE, USHA Barbosa [facility] [id number] 04/09/2014 22:15:00 04/09/2014 23:45:00 DIS Emergency SKYE LAKE DO Via [facility] [id number] 03/19/2014 21:20:00 03/20/2014 16:21:00 DIS Inpatient HIEU PEDRAZA DO Via [address] [id number] 12/22/2013 10:51:00 12/22/2013 13:40:00 DIS Emergency ARNULFO DUKE APRN [facility] [id number] 10/01/2013 08:52:00 10/01/2013 13:21:00 DIS Emergency HEIDY GARCIA MD [facility] [id number] 09/06/2013 19:15:00 09/06/2013 22:20:00 DIS Emergency ANA WILDE, JAMILA Palomares [facility] [id number] 07/15/2013 18:44:00 07/15/2013 19:04:00 DIS Emergency USHA VIDAL MD [facility] [id number] 07/14/2013 12:21:00 07/14/2013 15:05:00 DIS Emergency ARNULFO DUKE APRN [facility] [id number] 01/10/2013 20:50:00 01/12/2013 12:55:00 DIS Inpatient TRISTAN BERMEO MD Via [address] [id number] 01/01/2018 17:48:00 Document Registration [id number] 11/22/2012 16:10:00 Document Registration [id number] 11/13/2012 16:05:00 Document Registration [id number] 11/02/2012 22:47:00 Document Registration [id number] 09/10/2012 14:06:00 Document Registration [id number] 09/10/2012 12:19:00 Document Registration [id number] 06/19/2012 09:59:00 Document Registration [id number] 05/02/2012 14:09:00 Document Registration [id number] 04/27/2012 09:25:00 Document Registration [id number] 02/07/2012 13:19:00 Document Registration [id number] 02/03/2012 16:31:00 Document Registration [id number] 01/15/2012 19:54:00 Document Registration [id number] 01/11/2012 05:36:00 Document Registration [id number] 01/10/2012 14:53:00 Document Registration [id number] 01/09/2012 19:38:00 Document Registration [id number] 09/25/2011 12:25:00 Document Registration [id number] 03/02/2017 19:06:00 Document Registration [id number] 03/03/2017 14:09:00 Document Registration
[2018-01-01] MEDS ORDERED: NORMAL SALINE 250 ML ONE (20:02)
[2018-01-01] MEDS ORDERED: inSUlin (REGULAR) HUMAN 1 UNIT/0.01 ML (CHARGE PER UNIT) ONE (20:04)
[2018-01-01] MEDS ORDERED: 1/2 NS IV SOLUTION 1,000 ML IV ONE (20:08)
[2018-01-01 20:24] LABS: CALCIUM 7.8 MG/DL (8.5-10.1); CREATININE SERUM 3.45 MG/DL (0.60-1.30); POTASSIUM 5.9 MMOL/L (3.6-5.0)
[2018-01-01] MEDS ORDERED: CATHETER FLUSH 10 ML SYR IV PRN (20:30)
[2018-01-01] MEDS ORDERED: REGULAR inSUlin DRIP 250 UNITS/NS 250 ML IV SCH ×2 (20:30)
[2018-01-01] MEDS: D5 1/2 NS IV 1,000 ML IV SCH (20:30)
[2018-01-01] MEDS ORDERED: ONDANSETRON 4 MG/2 ML (SDV) Z0FRAN IV PRN (20:30)
[2018-01-01] MEDS: ACETAMINOPHEN 325 MG TABLET/CAPLET (TYLENOL) PO PRN (20:38)
[2018-01-01] MEDS ORDERED: NS IV 1000 ML 1,000 ML ONE (21:17)
[2018-01-01] MEDS ORDERED: NS IV 1000 ML 1,000 ML IV ONE ×3 (21:45→23:45)
[2018-01-01 22:28] LABS: CALCIUM 7.1 MG/DL (8.5-10.1); CREATININE SERUM 3.42 MG/DL (0.60-1.30); POTASSIUM 4.7 MMOL/L (3.6-5.0)
[2018-01-02] VITALS (83 sets, daily range): BP systolic 67–129; BP diastolic 39–88
[2018-01-02 00:41] LABS: CALCIUM 6.7 MG/DL (8.5-10.1); CREATININE SERUM 3.13 MG/DL (0.60-1.30); POTASSIUM 4.2 MMOL/L (3.6-5.0)
[2018-01-02] MEDS ORDERED: D5 1/2 NS W/KCL 20 MEQ/L 1,000 ML IV ONE ×2 (00:42→08:14)
[2018-01-02] MEDS ORDERED: NS (IVPB) 250 ML ONE (00:47)
[2018-01-02] MEDS ORDERED: NOREPINEPHRINE 4 MG/4 ML (LEVOPHED) AMP IV ONE (00:48)
[2018-01-02] MEDS ORDERED: NOREPINEPHRINE 4 MG in NS (IVPB) 250 ML IV SCH (00:49)
--- NOTE | 2018-01-02 01:49 | Consultation ---
History of Present Illness History of Present Illness Patient Consulted On(kiki/time) 01/02/18 01:48 Time Seen by Provider: 01:48 History of Present Illness Surgery asked to consult regarding Hypotension, Venous insufficiency with need for Central line in order to give Levophed. HPI per ED: to ER per EMS from home with reports of nausea vomiting and hyperglycemia. She is a known diabetic. She's been out of her Levemir since Tuesday12/28/17. She is not taken her NovoLog since yesterday because of nausea and vomiting. EMS found blood sugar to be 480. Timing/Duration: 1-2 Days Severity: Moderate Associated Systoms: Malaise, Nausea/Vomiting When seen last night pt had no abdominal pain, just very lethargic. SBP in the 70's and she needed a central line for Levophed. She did not appear to be in severe distress. Allergies and Home Medications Allergies Coded Allergies: No Known Drug Allergies (Unverified , 09/25/11) Home Medications Diclofenac Sodium 75 Mg Tablet.dr, 75 MG PO BID, (Reported) LAST FILLED #60 3-15-18 Gabapentin 600 Mg Tablet, 600 MG PO TID, (Reported) Ibuprofen 600 Mg Tablet, 600 MG PO TID PRN for PAIN-MILD, (Reported) Insulin Aspart 300 Units/3 Ml Solution, 10-20 UNITS SC AC, (Reported) Insulin Detemir 100 Unit/1 Ml Insuln.pen, 30 UNITS SC BID, (Reported) Metformin HCl 1,000 Mg Tablet, 1,000 MG PO BID, (Reported) LAST FILLED #60 3-15-18 Metoprolol Tartrate 50 Mg Tablet, 50 MG PO BID, (Reported) Patient Home Medication List Home Medication List Reviewed: Yes Past Obojypi-Dkizub-Idtbql Hx Patient Social History Alcohol Use: Denies Use Recreational Drug Use: No Smoking Status: Current Everyday Smoker Type Used: Cigarettes 2nd Hand Smoke Exposure: Yes Recent Foreign Travel: No Contact w/Someone Who Travel: No Recent Infectious Disease Expo: No Recent Hopitalizations: No Physical Abuse Screen: No Sexual Abuse: No Immunizations Up To Date Tetanus Booster (TDap): More than 5yrs PED Vaccines UTD: No Date of Pneumonia Vaccine: Sep 26, 2011 Date of Influenza Vaccine: May 22, 2017 Seasonal Allergies Seasonal Allergies: No Surgeries History of Surgeries: Yes Surgeries: Gallbladder Respiratory History of Respiratory Disorde: No Cardiovascular History of Cardiac Disorders: Yes (TACHYCARDIA BY HISTORY ) Cardiac Disorders: Heart Murmur Neurological History of Neurological Disord: No Reproductive System Hx Reproductive Disorders: No Sexually Transmitted Disease: No HIV/AIDS: 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 Genitourinary History of Genitourinary Disor: Yes Genitourinary Disorders: UTI-Chronic Gastrointestinal History of Gastrointestinal Di: Yes (S/P LÓPEZ) Gastrointestinal Disorders: Gall Bladder Disease Musculoskeletal History of Musculoskeletal Dis: No Endocrine History of Endocrine Disorders: Yes (DX AGE 13) Endocrine Disorders: Diabetes, Non-Insulin dep HEENT History of HEENT Disorders: No Cancer History of Cancer: No Psychosocial History of Psychiatric Problem: Yes (SUICIDE ATTEMPT AT AGE 13 Y/O) Behavioral Health Disorders: Anxiety, Suicide Attempts, Depression Integumentary History of Skin or Integumenta: No Blood Transfusions History of Blood Disorders: Yes (ANEMIA) Adverse Reaction to a Blood Tr: No Family Medical History Significant Family History: No Pertinent Family Hx, Heart Disease (father), Diabetes (mother) Family Medial History: Family history: Diabetes mellitus 19 MOTHER Review of Systems-General Constitutional: chills, diaphoresis EENTM: blurred vision; No mouth swelling, No epistaxis, No throat swelling Respiratory: No cough, No dyspnea on exertion Cardiovascular: No chest pain, No edema, No palpitations Gastrointestinal: No abdominal pain, No constipation, No diarrhea, No jaundice Genitourinary: No dysuria, No frequency, No hematuria Musculoskeletal: No joint pain, No joint swelling, No muscle stiffness; muscle cramps Skin: No change in color, No change in hair/nails Psychiatric/Neurological: Denies Anxiety, Denies Depressed, Denies Seizure, Denies Tingling Other pt denies any abnormal bleeding or bruising. Physical Exam-General Problems Physical Exam Vital Signs Vital Signs - First Documented 01/01/18 01/01/18 17:31 19:39 Temp 99.0 Pulse 93 Resp 18 B/P (MAP) 124/90 (101) Pulse Ox 97 O2 Delivery Room Air Capillary Refill : Less Than 3 Seconds General Appearance: WD/WN, mild distress Eyes: Bilateral Eye PERRL, Bilateral Eye EOMI HEENT: pharynx normal; No scleral icterus (R), No scleral icterus (L), No pale conjunctivae (R), No pale conjunctivae (L) Neck: non-tender, full range of motion, supple, normal inspection Respiratory: chest non-tender, lungs clear, normal breath sounds, no respiratory distress, no accessory muscle use Cardiovascular: regular rate, rhythm, no edema, systolic murmur Gastrointestinal: normal bowel sounds, non tender, soft, no organomegaly, no pulsatile mass Back: no CVA tenderness, no vertebral tenderness Extremities: normal range of motion, non-tender, normal inspection, no pedal edema, no calf tenderness, normal capillary refill Neurologic/Psychiatric: 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 programmer II-XII nml as tested, no motor/sensory deficits, alert, normal mood/affect, oriented x 3 Skin: normal color, warm/dry Lymphatic: no adenopathy (neck, axilla or groin) Data Review Labs Laboratory Tests 01/01/18 17:41: Glucometer 489*H 01/01/18 17:45: White Blood Count 17.3H, Red Blood Count 3.32L, Hemoglobin 10.5L, Hematocrit 32L , Mean Corpuscular Volume 96, Mean Corpuscular Hemoglobin 32, Mean Corpuscular Hemoglobin Concent 33, Red Cell Distribution Width 12.3, Platelet Count 319, Mean Platelet Volume 11.3H, Neutrophils (%) (Auto) 87H, Lymphocytes (%) (Auto) 9L, Monocytes (%) (Auto) 4, Eosinophils (%) (Auto) 0, Basophils (%) (Auto) 0, Neutrophils # (Auto) 15.2H, Lymphocytes # (Auto) 1.5, Monocytes # (Auto) 0.7, Eosinophils # (Auto) 0.0, Basophils # (Auto) 0.0, Neutrophils % (Manual) 84, Lymphocytes % (Manual) 14, Monocytes % (Manual) 2, Blood Morphology Comment NORMAL, Sodium Level 130L, Potassium Level 6.2H, Chloride Level 95L, Carbon Dioxide Level 9*L, Anion Gap 26H, Blood Urea Nitrogen 50H, Creatinine 3.57H, Estimat Glomerular Filtration Rate 15, BUN/Creatinine Ratio 14, Glucose Level 518*H, Calcium Level 8.3L, Total Bilirubin 0.5, Aspartate Amino Transf (AST/SGOT ) 8, Alanine Aminotransferase (ALT/SGPT) 13, Alkaline Phosphatase 77, Total Protein 7.0, Albumin 4.1 01/01/18 18:09: Blood Gas Puncture Site R RAD, Blood Gas Patient Temperature 99, Arterial Blood pH 7.27*L, Arterial Blood Partial Pressure CO2 29L, Arterial Blood Partial Pressure O2 76L, Arterial Blood HCO3 13*L, Arterial Blood Total CO2 13.6L, Arterial Blood Oxygen Saturation 95, Arterial Blood Base Excess -12.8L, Kevin Test YES-POS, Blood Gas Ventilator Setting NO, Blood Gas Inspired Oxygen RM AIR 01/01/18 18:30: Urine Color YELLOW, Urine Clarity VERY CLOUDYH, Urine pH 5, Urine Specific Webster 1.020, Urine Protein 3+H, Urine Glucose (UA) NEGATIVE, Urine Ketones 1+H , Urine Nitrite NEGATIVE, Urine Bilirubin NEGATIVE, Urine Urobilinogen NORMAL, Urine Leukocyte Esterase 3+H, Urine RBC (Auto) 3+H, Urine RBC RARE, Urine WBC > 100H, Urine Squamous Epithelial Cells >50H, Urine Crystals NONE, Urine Bacteria LARGEH, Urine Casts NONE, Urine Mucus NEGATIVE, Urine Culture Indicated YES 01/01/18 19:53: Sodium Level 130L, Potassium Level 5.9H, Chloride Level 97L, Carbon Dioxide Level 11L, Anion Gap 22H, Blood Urea Nitrogen 51H, Creatinine 3.45H, Estimat Glomerular Filtration Rate 15, BUN/Creatinine Ratio 15, Glucose Level 486*H, Calcium Level 7.8L 01/01/18 20:02: Glucometer 460*H 01/01/18 21:16: Glucometer 429*H 01/01/18 21:55: Lactic Acid Level 3.80*H 01/01/18 22:00: Sodium Level 130L, Potassium Level 4.7, Chloride Level 100, Carbon Dioxide Level 12L, Anion Gap 18H, Blood Urea Nitrogen 52H, Creatinine 3.42H, Estimat Glomerular Filtration Rate 15, BUN/Creatinine Ratio 15, Glucose Level 346H, Calcium Level 7.1L 01/01/18 22:15: Glucometer 343H 01/01/18 23:15: Glucometer 259H 01/02/18 00:01: Sodium Level 133L, Potassium Level 4.2, Chloride Level 104, Carbon Dioxide Level 13L, Anion Gap 16H, Blood Urea Nitrogen 49H, Creatinine 3.13H, Estimat Glomerular Filtration Rate 17, BUN/Creatinine Ratio 16, Glucose Level 194H, Calcium Level 6.7L, Lactic Acid Level 2.13*H 01/02/18 00:14: Glucometer 152H 01/02/18 01:12: Glucometer 126H Assessment/Plan Assessment/Plan Assessment/Plan Hypotension DKA R/O urosepsis Hyperglycemia Plan for Central line placement with US guidance; need for levophed to keep SBP elevated. I had to do this consult to make sure there were no contraindications for central line and to discuss risks and complications with pt. Clinical Quality Measures DVT/VTE Risk/Contraindication: Risk Factor Score Per Nursin RFS Level Per Nursing on Admit: 2=Moderate FRANNY FOX DO January 02, 2018 01:49
[2018-01-02] MEDS: DEXTROSE 10% IV SOLUTION 1,000 ML IV SCH ×3 (01:51→16:33)
[2018-01-02 04:21] LABS: BASOPHILS % (AUTO) 0 % (0-10); EOSINOPHILS # (AUTO) 0.1 10^3/uL (0.0-0.3); EOSINOPHILS % (AUTO) 1 % (0-10); HEMATOCRIT 25 % (35-52); HEMOGLOBIN 8.5 G/DL (11.5-16.0); LYMPHOCYTES # (AUTO) 3.1 X 10^3 (1.0-4.0); LYMPHOCYTES % (AUTO) 25 % (12-44); MEAN CORPUSCULAR HEMOGLOBIN 32 PG (25-34); MEAN CORPUSCULAR HGB CONC 34 G/DL (32-36); MEAN CORPUSCULAR VOLUME 94 FL (80-99); MEAN PLATELET VOLUME 10.7 FL (7.4-10.4); MONOCYTES # (AUTO) 1.2 X 10^3 (0.0-1.0); MONOCYTES % (AUTO) 9 % (0-12); NEUTROPHILS # (AUTO) 8.1 X 10^3 (1.8-7.8); NEUTROPHILS % (AUTO) 65 % (42-75); PLATELET COUNT 237 10^3/uL (130-400); RED BLOOD COUNT 2.67 10^6/uL (4.35-5.85); WHITE BLOOD COUNT 12.4 10^3/uL (4.3-11.0)
[2018-01-02 04:35] LABS: ALBUMIN 3.2 GM/DL (3.2-4.5); BILIRUBIN,TOTAL 0.3 MG/DL (0.1-1.0); CALCIUM 6.6 MG/DL (8.5-10.1); CREATININE SERUM 2.95 MG/DL (0.60-1.30); MAGNESIUM 1.5 MG/DL (1.8-2.4); PHOSPHORUS 4.8 MG/DL (2.3-4.7); POTASSIUM 4.4 MMOL/L (3.6-5.0); TOTAL PROTEIN 5.4 GM/DL (6.4-8.2)
[2018-01-02] MEDS: NOREPINEPHRINE 4 MG/NS 250 ML DRIP IV SCH ×6 (06:49→23:17)
[2018-01-02] MEDS: POTASSIUM CL 10MEQ/50ML IVPB 50 ML IV SCH (06:51)
[2018-01-02] MEDS: MAGNESIUM 1 GM/100 ML IVPB 100 ML IV SCH ×3 (06:52→08:38)
[2018-01-02] MEDS: KCL 20 MEQ TAB (K-DUR) PO SCH (06:52)
--- NOTE | 2018-01-02 07:27 | Diagnostic Imaging Report ---
INDICATION: Cough. Comparison is made with prior examination from 01/01/2018. FINDINGS: The heart size is normal. Lungs are clear. There is no pleural effusion or pneumothorax. The mediastinum is unremarkable. There is a right internal jugular central venous catheter in place with its tip in the right atrium. IMPRESSION: No acute cardiopulmonary abnormality. The right internal jugular central venous catheter has its tip in the right atrium. Dictated by: Dictated on workstation # [id number]
[2018-01-02] MEDS: CATHETER FLUSH 10 ML SYR IV SCH ×4 (07:38→21:57)
[2018-01-02] MEDS: D5 1/2 NS IV 1,000 ML IV SCH ×4 (07:49→16:34)
[2018-01-02] MEDS: 1/2 NS IV SOLUTION 1,000 ML IV SCH ×3 (08:59→16:34)
[2018-01-02] MEDS: 1/2 NS W/KCL 20 MEQ/L 1,000 ML IV SCH ×3 (08:59→16:34)
[2018-01-02] MEDS: D5 1/2 NS W/KCL 20 MEQ/L 1,000 ML IV SCH ×3 (08:59→16:52)
[2018-01-02] MEDS ORDERED: GABA600T2 PO (09:37)
[2018-01-02] MEDS ORDERED: DICL75TA2 PO (09:55)
[2018-01-02 12:10] LABS: CALCIUM 6.9 MG/DL (8.5-10.1); CREATININE SERUM 1.96 MG/DL (0.60-1.30); POTASSIUM 4.1 MMOL/L (3.6-5.0)
[2018-01-02] MEDS: ACETAMINOPHEN 325 MG TABLET/CAPLET (TYLENOL) PO PRN ×2 (12:44→18:56)
--- NOTE | 2018-01-02 16:05 | History & Physicial ([facility]S) ---
HPI History of Present Illness: 32 year old known diabetic patient presented to ED after 2 days of N/V. She had not taken any of her prescribed short acting insulin in about 24 hours because she reportedly had not felt well, and had not taken her long acting insulin in about four days because she ran out. Source: RN/MD, RN notes reviewed, old records Exam Limitations: no limitations Date seen by provider: January 02, 2018 Time Seen by Provider: 16:02 Attending Physician Jacqueline Pichardo DO [facility] Center/[facility] [place],[facility] Consult Date of Admission January 01, 2018 at 18:58 Home Medications Home Medications Reviewed patient Home Medication Reconciliation performed by pharmacy medication reconciliations occupational therapy technician and/or nursing. Patients Allergies have been reviewed. Allergies Coded Allergies: No Known Drug Allergies (Unverified , 09/25/11) [id number] Hx Patient Social History Living Status: lives independently Alcohol Use: Denies Use Recreational Drug Use: No Smoking Status: Current Everyday Smoker Type Used: Cigarettes 2nd Hand Smoke Exposure: Yes Recent Foreign Travel: No Contact w/other who traveled: No Recent Hopitalizations: No Recent Infectious Disease Expo: No Physical Abuse Screen: No Sexual Abuse: No Immunizations Up To Date Tetanus Booster (TDap): More than 5yrs Date of Pneumonia Vaccine: Sep 26, 2011 Date of Influenza Vaccine: May 22, 2017 Past Medical History Past Medical History 1. DM-I 2. Depression 3. Non-compliance 4. Tobacco abuse Past Surgical History 1. Cholecystectomy 2007 2. D&C 3. IUD placement -14 Family Medical History Significant Family History: No Pertinent Family Hx, Heart Disease (father), Diabetes (mother) Family History: Family history: Diabetes mellitus 19 MOTHER Review of Systems ([facility]) Constitutional: see HPI EENTM: no symptoms reported Respiratory: no symptoms reported Cardiovascular: no symptoms reported Gastrointestinal: abdominal pain, nausea, vomiting Genitourinary: no symptoms reported : No Musculoskeletal: no symptoms reported Skin: no symptoms reported Psychiatric/Neurological: No Symptoms Reported Reviewed Test Results Reviewed Test Results Lab Laboratory Tests Test 01/01/18 17:41 01/01/18 17:45 01/01/18 18:09 01/01/18 18:30 Range/Units Glucometer 489 *H 70-110 MG/DL White Blood Count 17.3 H 4.3-11.0 10^3/uL Red Blood Count 3.32 L 4.35-5.85 10^6/uL Hemoglobin 10.5 L 11.5-16.0 G/DL Hematocrit 32 L 35-52 % Mean Corpuscular Volume 96 80-99 FL Mean Corpuscular Hemoglobin 32 25-34 PG Mean Corpuscular Hemoglobin Concent 33 32-36 G/DL Red Cell Distribution Width 12.3 10.0-14.5 % Platelet Count 319 130-400 10^3/uL Mean Platelet Volume 11.3 H 7.4-10.4 FL Neutrophils (%) (Auto) 87 H 42-75 % Lymphocytes (%) (Auto) 9 L 12-44 % Monocytes (%) (Auto) 4 0-12 % Eosinophils (%) (Auto) 0 0-10 % Basophils (%) (Auto) 0 0-10 % Neutrophils # (Auto) 15.2 H 1.8-7.8 X 10^3 Lymphocytes # (Auto) 1.5 1.0-4.0 X 10^3 Monocytes # (Auto) 0.7 0.0-1.0 X 10^3 Eosinophils # (Auto) 0.0 0.0-0.3 10^3/uL Basophils # (Auto) 0.0 0.0-0.1 10^3/uL Neutrophils % (Manual) 84 % Lymphocytes % (Manual) 14 % Monocytes % (Manual) 2 % Blood Morphology Comment NORMAL Sodium Level 130 L 135-145 MMOL/L Potassium Level 6.2 H 3.6-5.0 MMOL/L Chloride Level 95 L 98-107 MMOL/L Carbon Dioxide Level 9 *L 21-32 MMOL/L Anion Gap 26 H 5-14 MMOL/L Blood Urea Nitrogen 50 H 7-18 MG/DL Creatinine 3.57 H 0.60-1.30 MG/DL Estimat Glomerular Filtration Rate 15 BUN/Creatinine Ratio 14 Glucose Level 518 *H 70-105 MG/DL Calcium Level 8.3 L 8.5-10.1 MG/DL Total Bilirubin 0.5 0.1-1.0 MG/DL Aspartate Amino Transf (AST/SGOT) 8 5-34 U/L Alanine Aminotransferase (ALT/SGPT) 13 0-55 U/L Alkaline Phosphatase 77 40-136 U/L Total Protein 7.0 6.4-8.2 GM/DL Albumin 4.1 3.2-4.5 GM/DL Blood Gas Puncture Site R RAD Blood Gas Patient Temperature 99 Arterial Blood pH 7.27 *L 7.37-7.43 Arterial Blood Partial Pressure CO2 29 L 35-45 MMHG Arterial Blood Partial Pressure O2 76 L 79-93 MMHG Arterial Blood HCO3 13 *L 23-27 MMOL/L Arterial Blood Total CO2 13.6 L 21.0-31.0 MMOL/L Arterial Blood Oxygen Saturation 95 94-100 % Arterial Blood Base Excess -12.8 L -2.5-2.5 MMOL/L Kevin Test YES-POS Blood Gas Ventilator Setting NO Blood Gas Inspired Oxygen RM AIR Urine Color YELLOW Urine Clarity VERY CLOUDY H Urine pH 5 5-9 Urine Specific Ethel 1.020 1.016-1.022 Urine Protein 3+ H NEGATIVE Urine Glucose (UA) NEGATIVE NEGATIVE Urine Ketones 1+ H NEGATIVE Urine Nitrite NEGATIVE NEGATIVE Urine Bilirubin NEGATIVE NEGATIVE Urine Urobilinogen NORMAL NORMAL MG/DL Urine Leukocyte Esterase 3+ H NEGATIVE Urine RBC (Auto) 3+ H NEGATIVE Urine RBC RARE /HPF Urine WBC >100 H /HPF Urine Squamous Epithelial Cells >50 H /HPF Urine Crystals NONE /LPF Urine Bacteria LARGE H /HPF Urine Casts NONE /LPF Urine Mucus NEGATIVE /LPF Urine Culture Indicated YES Test 01/01/18 19:53 01/01/18 20:02 01/01/18 21:16 01/01/18 21:55 Range/Units Sodium Level 130 L 135-145 MMOL/L Potassium Level 5.9 H 3.6-5.0 MMOL/L Chloride Level 97 L 98-107 MMOL/L Carbon Dioxide Level 11 L 21-32 MMOL/L Anion Gap 22 H 5-14 MMOL/L Blood Urea Nitrogen 51 H 7-18 MG/DL Creatinine 3.45 H 0.60-1.30 MG/DL Estimat Glomerular Filtration Rate 15 BUN/Creatinine Ratio 15 Glucose Level 486 *H 70-105 MG/DL Calcium Level 7.8 L 8.5-10.1 MG/DL Glucometer 460 *H 429 *H 70-110 MG/DL Lactic Acid Level 3.80 *H 0.50-2.00 MMOL/L Test 01/01/18 22:00 01/01/18 22:15 01/01/18 23:15 01/02/18 00:01 Range/Units Sodium Level 130 L 133 L 135-145 MMOL/L Potassium Level 4.7 4.2 3.6-5.0 MMOL/L Chloride Level 100 104 98-107 MMOL/L Carbon Dioxide Level 12 L 13 L 21-32 MMOL/L Anion Gap 18 H 16 H 5-14 MMOL/L Blood Urea Nitrogen 52 H 49 H 7-18 MG/DL Creatinine 3.42 H 3.13 H 0.60-1.30 MG/DL Estimat Glomerular Filtration Rate 15 17 BUN/Creatinine Ratio 15 16 Glucose Level 346 H 194 H 70-105 MG/DL Calcium Level 7.1 L 6.7 L 8.5-10.1 MG/DL Glucometer 343 H 259 H 70-110 MG/DL Lactic Acid Level 2.13 *H 0.50-2.00 MMOL/L Test 01/02/18 00:14 01/02/18 01:12 01/02/18 01:45 01/02/18 02:45 Range/Units Glucometer 152 H 126 H 141 H 118 H 70-110 MG/DL Test 01/02/18 03:20 01/02/18 03:40 01/02/18 04:20 01/02/18 05:16 Range/Units Glucometer 149 H 168 H 204 H 70-110 MG/DL White Blood Count 12.4 H 4.3-11.0 10^3/uL Red Blood Count 2.67 L 4.35-5.85 10^6/uL Hemoglobin 8.5 L 11.5-16.0 G/DL Hematocrit 25 L 35-52 % Mean Corpuscular Volume 94 80-99 FL Mean Corpuscular Hemoglobin 32 25-34 PG Mean Corpuscular Hemoglobin Concent 34 32-36 G/DL Red Cell Distribution Width 12.0 10.0-14.5 % Platelet Count 237 130-400 10^3/uL Mean Platelet Volume 10.7 H 7.4-10.4 FL Neutrophils (%) (Auto) 65 42-75 % Lymphocytes (%) (Auto) 25 12-44 % Monocytes (%) (Auto) 9 0-12 % Eosinophils (%) (Auto) 1 0-10 % Basophils (%) (Auto) 0 0-10 % Neutrophils # (Auto) 8.1 H 1.8-7.8 X 10^3 Lymphocytes # (Auto) 3.1 1.0-4.0 X 10^3 Monocytes # (Auto) 1.2 H 0.0-1.0 X 10^3 Eosinophils # (Auto) 0.1 0.0-0.3 10^3/uL Basophils # (Auto) 0.0 0.0-0.1 10^3/uL Sodium Level 131 L 135-145 MMOL/L Potassium Level 4.4 3.6-5.0 MMOL/L Chloride Level 105 98-107 MMOL/L Carbon Dioxide Level 15 L 21-32 MMOL/L Anion Gap 11 5-14 MMOL/L Blood Urea Nitrogen 49 H 7-18 MG/DL Creatinine 2.95 H 0.60-1.30 MG/DL Estimat Glomerular Filtration Rate 18 BUN/Creatinine Ratio 17 Glucose Level 161 H 70-105 MG/DL Lactic Acid Level 0.88 0.50-2.00 MMOL/L Calcium Level 6.6 L 8.5-10.1 MG/DL Phosphorus Level 4.8 H 2.3-4.7 MG/DL Magnesium Level 1.5 L 1.8-2.4 MG/DL Total Bilirubin 0.3 0.1-1.0 MG/DL Aspartate Amino Transf (AST/SGOT) 8 5-34 U/L Alanine Aminotransferase (ALT/SGPT) 8 0-55 U/L Alkaline Phosphatase 58 40-136 U/L Total Protein 5.4 L 6.4-8.2 GM/DL Albumin 3.2 3.2-4.5 GM/DL Test 01/02/18 06:16 01/02/18 07:33 01/02/18 08:27 01/02/18 09:37 Range/Units Glucometer 204 H 194 H 222 H 225 H 70-110 MG/DL Test 01/02/18 10:35 01/02/18 11:35 01/02/18 11:37 01/02/18 12:40 Range/Units Glucometer 178 H 154 H 179 H 70-110 MG/DL Sodium Level 135 135-145 MMOL/L Potassium Level 4.1 3.6-5.0 MMOL/L Chloride Level 110 H 98-107 MMOL/L Carbon Dioxide Level 17 L 21-32 MMOL/L Anion Gap 8 5-14 MMOL/L Blood Urea Nitrogen 40 H 7-18 MG/DL Creatinine 1.96 H 0.60-1.30 MG/DL Estimat Glomerular Filtration Rate 29 BUN/Creatinine Ratio 20 Glucose Level 147 H 70-105 MG/DL Calcium Level 6.9 L 8.5-10.1 MG/DL Test 01/02/18 13:30 01/02/18 14:47 Range/Units Glucometer 212 H 162 H 70-110 MG/DL Radiology 01/02 CXR both pre and post CVL placement shows no acute process. Postprocedure film shows CVA in good position. Physical Exam-([facility]) Physical Exam Vital Signs VS - Last 72 Hours, by Label 01/01/18 01/01/18 01/01/18 01/01/18 17:31 19:39 19:50 20:00 Temp 99.0 99.0 Pulse 93 111 92 Resp 18 18 18 B/P (MAP) 124/90 (101) 131/101 87/41 (56) Pulse Ox 97 99 97 97 O2 Delivery Room Air Room Air Room Air 01/01/18 01/01/18 01/01/18 01/01/18 20:00 20:15 20:30 20:45 Pulse 92 96 93 93 Resp 12 11 14 B/P (MAP) 82/43 (56) 80/47 (58) 80/52 (61) Pulse Ox 94 99 97 O2 Delivery Room Air Room Air Room Air 01/01/18 01/01/18 01/01/18 01/01/18 21:00 21:15 21:30 21:45 Pulse 93 96 96 95 Resp 15 17 18 15 B/P (MAP) 71/45 (54) 79/46 (57) 74/40 (51) 69/40 (50) Pulse Ox 96 98 99 97 O2 Delivery Room Air Room Air Room Air Room Air 01/01/18 01/01/18 01/01/18 01/01/18 22:00 22:15 22:30 22:45 Pulse 98 95 96 96 Resp 18 18 15 15 B/P (MAP) 67/40 (49) 68/37 (47) 82/39 (53) 79/32 (48) Pulse Ox 97 97 96 97 O2 Delivery Room Air Room Air Room Air Room Air 01/01/18 01/01/18 01/01/18 01/01/18 23:00 23:15 23:30 23:45 Pulse 96 96 93 94 Resp 14 14 13 14 B/P (MAP) 80/39 (53) 75/35 (48) 77/44 (55) 73/42 (52) Pulse Ox 97 97 96 96 O2 Delivery Room Air Room Air Room Air Room Air 01/02/18 01/02/18 01/02/18 01/02/18 00:00 00:00 00:15 00:30 Pulse 93 93 93 Resp 14 16 15 B/P (MAP) 73/40 (51) 82/39 (53) 67/40 (49) Pulse Ox 97 95 98 96 O2 Delivery Room Air Room Air Room Air Room Air 01/02/18 01/02/18 01/02/18 01/02/18 00:45 01:00 01:00 01:15 Pulse 94 93 93 93 Resp 8 13 15 B/P (MAP) 74/42 (53) 70/41 (51) 82/41 (55) Pulse Ox 97 97 98 O2 Delivery Room Air Room Air Room Air 01/02/18 01/02/18 01/02/18 01/02/18 01:30 01:45 02:00 02:15 Pulse 95 93 92 92 Resp 15 13 24 17 B/P (MAP) 79/44 (56) 73/43 (53) 79/40 (53) 99/55 (70) Pulse Ox 97 97 97 97 O2 Delivery Room Air Room Air Room Air Room Air 01/02/18 01/02/18 01/02/18 01/02/18 02:30 02:45 03:00 03:15 Pulse 98 104 101 99 Resp 15 18 21 16 B/P (MAP) 99/56 (70) 102/60 (74) 102/61 (75) 101/56 (71) Pulse Ox 97 98 95 94 O2 Delivery Room Air Room Air Room Air Room Air 01/02/18 01/02/18 01/02/18 01/02/18 03:30 03:45 04:00 04:00 Pulse 98 98 100 Resp 17 15 17 B/P (MAP) 78/43 (55) 90/53 (65) 100/59 (73) Pulse Ox 95 96 97 95 O2 Delivery Room Air Room Air Room Air Room Air 01/02/18 01/02/18 01/02/18 01/02/18 04:15 04:30 04:45 05:00 Pulse 103 103 101 101 Resp 17 17 18 17 B/P (MAP) 103/60 (74) 99/60 (73) 101/60 (74) 99/57 (71) Pulse Ox 97 97 96 97 O2 Delivery Room Air Room Air Room Air Room Air 01/02/18 01/02/18 01/02/18 01/02/18 05:15 05:30 05:45 06:00 Pulse 99 103 104 105 Resp 15 16 18 18 B/P (MAP) 101/59 (73) 99/56 (70) 101/55 (70) 103/59 (74) Pulse Ox 99 96 96 97 O2 Delivery Room Air Room Air Room Air Room Air 01/02/18 01/02/18 01/02/18 01/02/18 06:15 06:30 06:45 07:00 Pulse 104 105 105 105 Resp 17 17 17 17 B/P (MAP) 100/61 (74) 103/61 (75) 104/62 (76) 104/62 (76) Pulse Ox 97 98 98 98 O2 Delivery Room Air Room Air Room Air Room Air 01/02/18 01/02/18 01/02/18 01/02/18 07:00 07:15 07:30 07:35 Temp 98.6 Pulse 105 105 104 Resp 16 23 B/P (MAP) 108/62 (77) 108/66 (80) Pulse Ox 98 97 O2 Delivery Room Air Room Air 01/02/18 01/02/18 01/02/18 01/02/18 07:40 07:45 08:00 08:15 Pulse 101 103 105 Resp 17 20 22 B/P (MAP) 107/67 (80) 107/64 (78) 109/64 (79) Pulse Ox 96 99 97 97 O2 Delivery Room Air Room Air Room Air Room Air 01/02/18 01/02/18 01/02/18 01/02/18 08:30 08:45 09:30 09:45 Pulse 105 105 101 100 Resp 17 16 14 22 B/P (MAP) 105/62 (76) 97/63 (74) 107/66 (80) 103/64 (77) Pulse Ox 97 97 98 96 O2 Delivery Room Air Room Air Room Air Room Air 01/02/18 01/02/18 01/02/18 01/02/18 10:00 10:15 10:30 10:45 Pulse 101 99 103 98 Resp 12 11 11 11 B/P (MAP) 114/67 (83) 110/73 (85) 100/55 (70) 112/79 (90) Pulse Ox 99 99 99 99 O2 Delivery Room Air Room Air Room Air Room Air 01/02/18 01/02/18 01/02/18 01/02/18 11:00 11:15 11:26 11:30 Temp 99.5 Pulse 101 102 101 Resp 12 13 20 B/P (MAP) 111/75 (87) 96/88 (91) 105/60 (75) Pulse Ox 100 96 98 O2 Delivery Room Air Room Air Room Air 01/02/18 01/02/18 01/02/18 01/02/18 11:45 12:00 12:15 12:30 Pulse 98 102 105 Resp 15 18 13 B/P (MAP) 110/64 (79) 108/63 (78) 89/62 (71) Pulse Ox 98 98 98 97 O2 Delivery Room Air Room Air Room Air Room Air 01/02/18 01/02/18 01/02/18 01/02/18 12:30 12:45 13:00 13:00 Pulse 105 103 102 104 Resp 14 19 15 B/P (MAP) 105/58 (74) 102/64 (77) 108/60 (76) Pulse Ox 98 98 97 O2 Delivery Room Air Room Air Room Air 01/02/18 01/02/18 01/02/18 01/02/18 13:15 13:30 13:45 14:00 Pulse 105 103 103 104 Resp 17 27 16 17 B/P (MAP) 102/58 (73) 101/64 (76) 103/64 (77) 106/63 (77) Pulse Ox 97 96 96 97 O2 Delivery Room Air Room Air Room Air Room Air 01/02/18 01/02/18 14:15 14:30 Pulse 106 102 Resp 22 18 B/P (MAP) 111/70 (84) 110/68 (82) Pulse Ox 98 98 O2 Delivery Room Air Room Air Capillary Refill : Less Than 3 Seconds General Appearance: WD/WN, no apparent distress Eyes: Bilateral Eye Normal Inspection HEENT: normal ENT inspection; No scleral icterus (R), No scleral icterus (L), No photophobia Neck: non-tender, full range of motion, supple, other (right CVL placement) Respiratory: chest non-tender, lungs clear, normal breath sounds, no respiratory distress, no accessory muscle use; No crackles, No rales, No rhonchi , No wheezing Cardiovascular: normal peripheral pulses, regular rate, rhythm, no edema, no gallop, no JVD, systolic murmur (II/) Gastrointestinal: normal bowel sounds, non tender, soft, no organomegaly, no pulsatile mass Rectal: deferred Extremities: normal range of motion, non-tender, normal inspection, no calf tenderness, normal capillary refill Neurologic/Psychiatric: crane hooker II-XII nml as tested, no motor/sensory deficits, alert, normal mood/affect, oriented x 3 Skin: normal color, warm/dry Lymphatic: no adenopathy Assessment/Plan Assessment/Plan Admission Dx DKA Hypotension Acute Renal Insufficiency Dehydration Nausea and Vomiting Tobacco Abuse Medical Non-Compliance Admission Status: Inpatient Order (span 2 midnights) Reason for Inpatient Admission: IV hydration, IV Blood Pressure Support, IV Re-Hydration, other supportive cares Assessment & Plan DKA -on insulin gtt per protocol; 7 units/hr at the time of exam Hypotension -blood pressures 90's systolic, on levophed 5 mcg at the time of exam Acute Renal Insufficiency -Cr continues to trend down Dehydration -improved after IV re-hydration Nausea and Vomiting -resolved Tobacco Abuse -cessation encouraged Medical Non-Compliance -compliance encouraged; will require close clinic follow up to monitor insulin use and blood sugars after discharge Clinical Quality Measures DVT/VTE Risk/Contraindication: Risk Factor Score Per Nursin RFS Level Per Nursing on Admit: 2=Moderate Copy Copies To 1: [facility] RAMSEY DO January 02, 2018 16:05
--- NOTE | 2018-01-02 16:08 | OPERATIVE REPORT ---
DATE OF SERVICE: 01/02/2018 PREOPERATIVE DIAGNOSES: 1. Hypotension. 2. DKA. 3. Urosepsis. 4. Hyperglycemia. POSTOPERATIVE DIAGNOSES: 1. Hypotension. 2. DKA. 3. Urosepsis. 4. Hyperglycemia. PROCEDURE: Insertion of central line triple lumen catheter with ultrasound guidance, right IJ. SURGEON: Bharat Sow DO PRINT MANAGER: None. ANESTHESIA: Local lidocaine. BLOOD LOSS: Scant. FLUIDS: None. POSTOPERATIVE CONDITION: Stable. INDICATION FOR PROCEDURE: The patient is a 32-year-old female, who has hypotension, possible urosepsis. She is in DKA, needs IV access for Levophed. FINDINGS: The patient had a right IJ placed with ultrasound guidance. PROCEDURE NOTE: After informed consent was obtained, the patient was in her bed. She was sterilely prepped and draped in normal fashion. Local lidocaine was used to infiltrate the right anterior neck and then using ultrasound guidance, an 18-gauge fine needle was advanced under negative inspiration and cannulated the right IJ on the first attempt. I watched the needle go into the IJ, got a good flash of blood, removed the syringe, then placed a guidewire down the needle using Seldinger technique, it went in easily, removed the needle and then made a stab incision at the guidewire with a #11 blade. Then, over the guidewire placed a dilator using the Seldinger technique, it went in easily, then removed this and then over the guidewire placed the triple lumen catheter using the Seldinger technique, it went in easily. Guidewire was then removed. Easily aspirated, got a good flash of blood in all 3 ports, then flushed with normal saline. This was then sutured in place with 2-0 silk suture, had the fluoroscopy checked to see that the guidewire was then down in the IJ. This area was then cleaned and dried and then sterilely dressed by the nurse. The patient tolerated the procedure. Job ID: [id number] DocumentID: [id number] Dictated Date: 01/02/2018 11:28:45 Email Engineer Date: 01/02/2018 16:08:02 Dictated By: BHARAT SOW DO
[2018-01-02 17:19] LABS: CALCIUM 7.2 MG/DL (8.5-10.1); CREATININE SERUM 1.46 MG/DL (0.60-1.30); MAGNESIUM 2.1 MG/DL (1.8-2.4); POTASSIUM 4.3 MMOL/L (3.6-5.0)
[2018-01-02] MEDS: inSUlin ASPART (NovoLOG) 1 UNIT/0.01 ML (CHARGE PER UNIT) SC SCH ×3 (17:28→21:57)
[2018-01-02] MEDS: metFORMIN 500 MG (GLUCOPHAGE) TAB PO SCH (18:32)
[2018-01-02] MEDS: cefTRIAXone 1 GM/NS 50 ML IVPB IV SCH ×2 (18:49)
[2018-01-02] MEDS ORDERED: NON-FORMULARY MEDICATION 1 EA EA (Metformin HCl 1,000 MG) PO SCH (21:00)
[2018-01-02] MEDS ORDERED: NON-FORMULARY MEDICATION 1 EA EA (Insulin Detemir (Levemir Flextouch) 30 UNITS) SC SCH (21:00)
[2018-01-02] MEDS ORDERED: NON-FORMULARY MEDICATION 1 EA EA (Metoprolol Tartrate 50 MG) PO SCH (21:00)
[2018-01-02] MEDS: GABAPENTIN 600 MG (NEURONTIN) TAB PO SCH (21:56)
[2018-01-02] MEDS: inSUlin DETERMIR 1 UNIT/0.01 ML (LEVEMIR) CHARGE PER UNIT SQ SCH (21:57)
[2018-01-02] MEDS: meTOprolol TARTRATE 50 MG (LOPRESSOR) TAB PO SCH (21:57)
[2018-01-03] VITALS (18 sets, daily range): BP systolic 76–129; BP diastolic 35–77
[2018-01-03 03:59] LABS: BASOPHILS % (AUTO) 0 % (0-10); EOSINOPHILS # (AUTO) 0.1 10^3/uL (0.0-0.3); EOSINOPHILS % (AUTO) 2 % (0-10); HEMATOCRIT 27 % (35-52); HEMOGLOBIN 8.9 G/DL (11.5-16.0); LYMPHOCYTES # (AUTO) 2.3 X 10^3 (1.0-4.0); LYMPHOCYTES % (AUTO) 28 % (12-44); MEAN CORPUSCULAR HEMOGLOBIN 32 PG (25-34); MEAN CORPUSCULAR HGB CONC 34 G/DL (32-36); MEAN CORPUSCULAR VOLUME 94 FL (80-99); MEAN PLATELET VOLUME 9.9 FL (7.4-10.4); MONOCYTES # (AUTO) 0.5 X 10^3 (0.0-1.0); MONOCYTES % (AUTO) 6 % (0-12); NEUTROPHILS # (AUTO) 5.2 X 10^3 (1.8-7.8); NEUTROPHILS % (AUTO) 64 % (42-75); PLATELET COUNT 220 10^3/uL (130-400); RED BLOOD COUNT 2.82 10^6/uL (4.35-5.85); RED CELL DISTRIBUTION WIDTH 11.9 % (10.0-14.5); WHITE BLOOD COUNT 8.2 10^3/uL (4.3-11.0)
[2018-01-03 04:17] LABS: ALBUMIN 3.2 GM/DL (3.2-4.5); BILIRUBIN,TOTAL 0.1 MG/DL (0.1-1.0); CALCIUM 7.4 MG/DL (8.5-10.1); CREATININE SERUM 1.06 MG/DL (0.60-1.30); MAGNESIUM 2.2 MG/DL (1.8-2.4); PHOSPHORUS 2.3 MG/DL (2.3-4.7); POTASSIUM 4.7 MMOL/L (3.6-5.0); TOTAL PROTEIN 5.6 GM/DL (6.4-8.2)
[2018-01-03] MEDS: MAGNESIUM 1 GM/100 ML IVPB 100 ML IV SCH (05:47)
[2018-01-03] MEDS: KCL 20 MEQ TAB (K-DUR) PO SCH (05:47)
[2018-01-03] MEDS: POTASSIUM CL 10MEQ/50ML IVPB 50 ML IV SCH (05:47)
[2018-01-03] MEDS ORDERED: inSUlin ASPART (NovoLOG) 1 UNIT/0.01 ML (CHARGE PER UNIT) SC SCH ×2 (06:00)
[2018-01-03] MEDS: inSUlin ASPART (NovoLOG) 1 UNIT/0.01 ML (CHARGE PER UNIT) SC SCH ×7 (06:43→21:06)
[2018-01-03] MEDS: CATHETER FLUSH 10 ML SYR IV SCH ×3 (06:43→21:19)
[2018-01-03] MEDS: metFORMIN 500 MG (GLUCOPHAGE) TAB PO SCH ×2 (06:43→17:48)
[2018-01-03] MEDS: inSUlin DETERMIR 1 UNIT/0.01 ML (LEVEMIR) CHARGE PER UNIT SQ SCH ×2 (08:21→21:19)
[2018-01-03] MEDS: GABAPENTIN 600 MG (NEURONTIN) TAB PO SCH ×3 (08:21→21:19)
[2018-01-03] MEDS: meTOprolol TARTRATE 50 MG (LOPRESSOR) TAB PO SCH ×2 (08:21→19:50)
--- NOTE | 2018-01-03 09:01 | Diagnostic Imaging Report ---
EXAMINATION: Portable erect PA chest at 3:13 AM. INDICATION: Respiratory distress. FINDINGS: This exam is less than optimal as the lung apices are partially obscured by the patient's chin. The lungs, where visualized, are clear and similar in appearance to the prior exam of 01/02/2018. The heart size is within normal limits. The mediastinum, where visualized, is not widened. The osseous structures are intact. The central venous catheter on the right seen previously is unchanged in position. IMPRESSION: There is no evidence for an acute cardiopulmonary abnormality on this suboptimal exam. Dictated by: Dictated on workstation # [id number]
--- NOTE | 2018-01-03 10:31 | Progress Note (SOAP) ---
Subjective Subjective/Events-last exam Patient denies complaints this morning. She has been off insulin gtt since yesterday afternoon and has been tolerating PO without difficulty. She is still on levophed, but we will turn it off now and see if she is able to tolerate it; pt has not been symptomatic with her hypotension, although she has had intermittent tachycardia in the low 100's at time. No acute events overnight, no concerns from nursing staff. Review of Systems Date Seen by Provider: January 03, 2018 Time Seen by Provider: 10:35 General: No Chills, No Night Sweats HEENT: No Head Aches, No Eye Pain, No Dysphasia Pulmonary: No Dyspnea, No Cough Cardiovascular: No: Chest Pain, Palpitations Gastrointestinal: No: Nausea, Vomiting, Abdominal Pain, Diarrhea, Constipation Genitourinary: No Hematuria; Other (indwelling franz) Musculoskeletal: other (ankle pain); No: neck pain, back pain Neurological: No: Weakness, Numbness, Incoordination, Change in speech, Confusion, Seizures Focused Exam Lactate Level 01/01/18 21:55: Lactic Acid Level 3.80*H 01/02/18 00:01: Lactic Acid Level 2.13*H 01/02/18 03:40: Lactic Acid Level 0.88 Objective Exam Last Set of Vital Signs Vital Signs Date Time Temp Pulse Resp B/P (MAP) Pulse Ox O2 Delivery O2 Flow Rate FiO2 01/03/18 09:00 94 26 106/65 (79) 99 Room Air 01/03/18 07:00 98.1 Capillary Refill : Less Than 3 Seconds I&O Intake and Output 01/03/18 00:00 Intake Total 4024 ml Output Total 6025 ml Balance -2001 ml Intake Oral 1120 ml IV Total 2904 ml Output Urine Total 6025 ml General: Alert, Oriented X3, Cooperative, No Acute Distress HEENT: Atraumatic, EOMI, Mucous Memb Moist/[place] Neck: Supple, No Thyromegaly Lungs: Clear to Auscultation, Normal Air Movement Heart: Regular Rate, Normal S1, Normal S2, No Murmurs Abdomen: Normal Bowel Sounds, Soft, No Tenderness, No Masses Extremities: No Clubbing, No Cyanosis Skin: No Rashes, No Significant Lesion Neuro: Normal Speech, Normal Tone, Sensation Intact, Cranial Nerves 3-12 NL Psych/Mental Status: Mental Status NL, Mood NL Results/Procedures Lab Laboratory Tests 01/02/18 10:35: Glucometer 178H 01/02/18 11:35: Sodium Level 135, Potassium Level 4.1, Chloride Level 110H, Carbon Dioxide Level 17L, Anion Gap 8, Blood Urea Nitrogen 40H, Creatinine 1.96H, Estimat Glomerular Filtration Rate 29, BUN/Creatinine Ratio 20, Glucose Level 147H, Calcium Level 6.9L 01/02/18 11:37: Glucometer 154H 01/02/18 12:40: Glucometer 179H 01/02/18 13:30: Glucometer 212H 01/02/18 14:47: Glucometer 162H 01/02/18 15:44: Glucometer 169H 01/02/18 16:47: Glucometer 166H 01/02/18 16:55: Sodium Level 138, Potassium Level 4.3, Chloride Level 112H, Carbon Dioxide Level 19L, Anion Gap 7, Blood Urea Nitrogen 33H, Creatinine 1.46H, Estimat Glomerular Filtration Rate 41, BUN/Creatinine Ratio 23, Glucose Level 149H, Calcium Level 7.2L, Magnesium Level 2.1 01/02/18 18:29: Glucometer 179H 01/02/18 20:42: Glucometer 98 01/03/18 03:50: Sodium Level 140, Potassium Level 4.7, Chloride Level 112H, Carbon Dioxide Level 19L, Anion Gap 9, Blood Urea Nitrogen 24H, Creatinine 1.06, Estimat Glomerular Filtration Rate 60, BUN/Creatinine Ratio 23, Glucose Level 228H, Calcium Level 7.4L, Magnesium Level 2.2, White Blood Count 8.2, Red Blood Count 2.82L, Hemoglobin 8.9L, Hematocrit 27L, Mean Corpuscular Volume 94, Mean Corpuscular Hemoglobin 32, Mean Corpuscular Hemoglobin Concent 34, Red Cell Distribution Width 11.9, Platelet Count 220, Mean Platelet Volume 9.9, Neutrophils (%) (Auto) 64, Lymphocytes (%) (Auto) 28, Monocytes (%) (Auto) 6, Eosinophils (%) (Auto) 2, Basophils (%) (Auto) 0, Neutrophils # (Auto) 5.2, Lymphocytes # (Auto) 2.3, Monocytes # (Auto) 0.5, Eosinophils # (Auto) 0.1, Basophils # (Auto) 0.0, Phosphorus Level 2.3, Total Bilirubin 0.1, Aspartate Amino Transf (AST/SGOT) 9, Alanine Aminotransferase (ALT/SGPT) 8, Alkaline Phosphatase 62, Total Protein 5.6L, Albumin 3.2 01/03/18 06:22: Glucometer 158H 01/03/18 08:12: Glucometer 71 Microbiology 01/01/18 Blood Culture - Preliminary, Resulted Bacillus species See Comments 01/01/18 Urine Culture - Final, Complete Escherichia coli Radiology 01/02 CXR both pre and post CVL placement shows no acute process. Postprocedure film shows CVA in good position. Assessment/Plan Assessment/Plan Assessment & Plan DKA -on insulin gtt per protocol; 7 units/hr at the time of exam 01/03 -insulin gtt off yesterday afternoon -restarted home insulin regimen; 15 units Novolog with meals and 30 units Levemir -sliding scale B with meals PRN -accucheck ACHS -gap closed, CO2 19 this AM Hypotension -blood pressures 90's systolic, on levophed 5 mcg at the time of exam 01/03 -SBP 117 at the time of exam -pt has been asymptomatic even with hypotension -will turn off levophed and see if patient tolerates -if patient able to maintain blood pressure without levophed, can transfer to floor later today Acute Renal Insufficiency -Cr continues to trend down 01/03 -Cr normalized Dehydration -improved after IV re-hydration 01/03 RESOLVED Nausea and Vomiting -resolved Tobacco Abuse -cessation encouraged Medical Non-Compliance -compliance encouraged; will require close clinic follow up to monitor insulin use and blood sugars after discharge UTI -ecoli -Day 2 Rocephin Dispo: Overall, patient significantly improved from yesterday. If able to maintain blood pressure off levophed, will transfer to floor this afternoon and possibly discharge tomorrow. Clinical Quality Measures DVT/VTE Risk/Contraindication: Risk Factor Score Per Nursin RFS Level Per Nursing on Admit: 2=Moderate Copy Copies To 1: [facility] RAMSEY DO January 03, 2018 10:31
[2018-01-03] MEDS: ACETAMINOPHEN 325 MG TABLET/CAPLET (TYLENOL) PO PRN ×2 (13:45→20:05)
[2018-01-03] MEDS: cefTRIAXone 1 GM/NS 50 ML IVPB IV SCH ×2 (17:49)
--- NOTE | 2018-01-03 19:56 | Diagnostic Imaging Report ---
INDICATION: Right ankle pain. FINDINGS: Two views of the right ankle do not show any fracture or dislocation. There is no soft tissue swelling. IMPRESSION: Negative right ankle. There is a small cortical defect on the dorsal aspect of the distal talus that could be a small fracture. Dictated by: Dictated on workstation # [id number]
[2018-01-04] VITALS: BP 95/50
[2018-01-04 04:00] VITALS: BP 93/55
[2018-01-04 05:20] LABS: BASOPHILS % (AUTO) 0 % (0-10); EOSINOPHILS # (AUTO) 0.2 10^3/uL (0.0-0.3); EOSINOPHILS % (AUTO) 3 % (0-10); HEMATOCRIT 28 % (35-52); HEMOGLOBIN 9.3 G/DL (11.5-16.0); LYMPHOCYTES # (AUTO) 2.4 X 10^3 (1.0-4.0); LYMPHOCYTES % (AUTO) 38 % (12-44); MEAN CORPUSCULAR HEMOGLOBIN 31 PG (25-34); MEAN CORPUSCULAR HGB CONC 33 G/DL (32-36); MEAN CORPUSCULAR VOLUME 96 FL (80-99); MEAN PLATELET VOLUME 10.2 FL (7.4-10.4); MONOCYTES # (AUTO) 0.4 X 10^3 (0.0-1.0); MONOCYTES % (AUTO) 7 % (0-12); NEUTROPHILS # (AUTO) 3.3 X 10^3 (1.8-7.8); NEUTROPHILS % (AUTO) 52 % (42-75); PLATELET COUNT 220 10^3/uL (130-400); RED BLOOD COUNT 2.97 10^6/uL (4.35-5.85); RED CELL DISTRIBUTION WIDTH 12.2 % (10.0-14.5); WHITE BLOOD COUNT 6.3 10^3/uL (4.3-11.0)
[2018-01-04 05:43] LABS: ALANINE AMINOTRANSFERASE 9 U/L (0-55); ALBUMIN 3.3 GM/DL (3.2-4.5); ALKALINE PHOSPHATASE 56 U/L (40-136); BILIRUBIN,TOTAL 0.2 MG/DL (0.1-1.0); BUN/CREATININE RATIO 25; CALCIUM 7.8 MG/DL (8.5-10.1); CARBON DIOXIDE 21 MMOL/L (21-32); CHLORIDE 109 MMOL/L (98-107); CREATININE SERUM 0.67 MG/DL (0.60-1.30); GFR ESTIMATED > 60; GLUCOSE 103 MG/DL (70-105); POTASSIUM 4.5 MMOL/L (3.6-5.0); SODIUM 138 MMOL/L (135-145); TOTAL PROTEIN 5.9 GM/DL (6.4-8.2)
[2018-01-04] MEDS: inSUlin ASPART (NovoLOG) 1 UNIT/0.01 ML (CHARGE PER UNIT) SC SCH ×4 (05:43→13:04)
[2018-01-04 08:00] VITALS: BP 100/66
[2018-01-04] MEDS: inSUlin DETERMIR 1 UNIT/0.01 ML (LEVEMIR) CHARGE PER UNIT SQ SCH (08:31)
[2018-01-04] MEDS: GABAPENTIN 600 MG (NEURONTIN) TAB PO SCH ×2 (08:32→13:53)
[2018-01-04] MEDS: metFORMIN 500 MG (GLUCOPHAGE) TAB PO SCH (08:32)
[2018-01-04] MEDS: meTOprolol TARTRATE 50 MG (LOPRESSOR) TAB PO SCH (09:00)
[2018-01-04] MEDS: CATHETER FLUSH 10 ML SYR IV SCH (11:20)
--- NOTE | 2018-01-04 11:44 | Discharge Summary ---
Diagnosis/Chief Complaint Date of Admission January 01, 2018 at 18:58 Date of Discharge 01/04/18 Admission Diagnosis Admission Diagnosis DKA Hypotension Acute Renal Insufficiency Dehydration Nausea and Vomiting Tobacco Abuse Medical Non-Compliance Discharge Diagnosis DKA -on insulin gtt per protocol; 7 units/hr at the time of exam 01/03 -insulin gtt off yesterday afternoon -restarted home insulin regimen; 15 units Novolog with meals and 30 units Levemir -sliding scale B with meals PRN -accucheck ACHS -gap closed, CO2 19 this AM 01/04 -has been off insulin gtt for >24 hours and done well on home insulin regimen -met with landcare officer this morning about carb counting -has money to bulk picker her insulin prescription that is waiting for her at [facility] -pt encouraged to call if she ever runs out of insulin and can't afford to bulk picker rx, as the clinic often has samples they may be able to give her to cover her until she can bulk picker her medication Hypotension -blood pressures 90's systolic, on levophed 5 mcg at the time of exam 01/03 -SBP 117 at the time of exam -pt has been asymptomatic even with hypotension -will turn off levophed and see if patient tolerates -if patient able to maintain blood pressure without levophed, can transfer to floor later today 01/04 -pt came down to floor yesterday -has been up and about without lightheadedness or dizziness Acute Renal Insufficiency -Cr continues to trend down 01/03 -Cr normalized 01/04 -Cr remains WNL Dehydration -improved after IV re-hydration 01/03 RESOLVED Nausea and Vomiting -resolved Tobacco Abuse -cessation encouraged Right Ankle Pain 01/04 -imaging last night states negative for fracture but also states possible fracture of distal talus -significant swelling and bruising and patient reports very uncomfortable when up and standing when she was in the shower this morning -will discharge with short supply of pain medication and have nursing staff place ankle in support boot before discharge UTI -ecoli -will discharge on Macrobid 100 mg PO BID x5 days Chief Complaint/HPI Chief Complaint/HPI 32 year old known diabetic patient presented to ED after 2 days of N/V. She had not taken any of her prescribed short acting insulin in about 24 hours because she reportedly had not felt well, and had not taken her long acting insulin in about four days because she ran out. Discharge Summary-Simple/Stand Consultations Discharge Physical Examination Allergies: Coded Allergies: No Known Drug Allergies (Unverified , 09/25/11) Vitals & I&Os Vital Sign - Last 12Hours Date Time Temp Pulse Resp B/P (MAP) Pulse Ox O2 Delivery O2 Flow Rate FiO2 01/04/18 08:00 97.4 96 20 100/66 (77) 99 Room Air Intake and Output 01/04/18 00:00 Intake Total 890 ml Output Total 1000 ml Balance -110 ml General Appearance: Alert, Oriented X3, Cooperative, No Acute Distress HEENT: Atraumatic, EOMI, Mucous Memb Moist/[place] Respiratory: Clear to Auscultation, Normal Air Movement Cardiovascular: Regular Rate, Normal S1, Normal S2, No Murmurs Abdominal: Normal Bowel Sounds, Soft, No Tenderness, No Masses Extremities: No Clubbing, No Cyanosis, Normal Pulses, Other (right ankle edema and bruising; neurovascularly intact) Skin: No Rashes, No Breakdown Neuro: Normal Speech, Normal Tone, Sensation Intact, Cranial Nerves 3-12 NL Psych/Mental Status: Mental Status NL, Mood NL Hospital Course See final discharge diagnosis. Radiology Reviewed 01/02 CXR both pre and post CVL placement shows no acute process. Postprocedure film shows CVA in good position. Discharge Condition at discharge stable Instructions to patient/family Please see electronic discharge instructions given to patient. Discharge Medications Reviewed and agree with Discharge Medication list on patient's Discharge Instruction sheet Clinical Quality Measures DVT/VTE Risk/Contraindication: Risk Factor Score Per Nursin RFS Level Per Nursing on Admit: 2=Moderate Copy Copies To 1: TRISTAN BERMEO MD, MARGARET E DO January 04, 2018 11:44
[2018-01-04 12:00] VITALS: BP 115/78
[2018-01-04] MEDS ORDERED: HYDR-757 PO (12:13)
[2018-01-04] MEDS ORDERED: NITR-65 PO (12:13)
--- NOTE | 2018-01-04 12:18 | Discharge Instructions ---
Discharge [facility] Discharge Medications New, Converted or Re-Newed RX: RX on Chart (macrobid transmitted to Kris ; pt reports she has insulin ready to picker at the pharmacy) New Medications: Hydrocodone/Acetaminophen ([place] 5-325 Tablet) 1 Each Tablet 1 EACH PO TID PRN for PAIN-SEVERE for 7 Days, #21 TAB 0 Refills Nitrofurantoin Monohyd/M-Cryst (Macrobid 100 mg Capsule) 100 Mg Capsule 1 TAB PO BID for 5 Days, #10 CAP 0 Refills Continued Medications: Diclofenac Sodium (Diclofenac Sodium) 75 Mg Tablet.dr 75 MG PO BID, TAB LAST FILLED #60 15-18 Gabapentin (Gabapentin) 600 Mg Tablet 600 MG PO TID, TAB Ibuprofen (Ibuprofen) 600 Mg Tablet 600 MG PO TID PRN for PAIN-MILD, TAB Insulin Aspart (Novolog Flexpen) 300 Units/3 Ml Solution 10-20 UNITS SC AC, EA Insulin Detemir (Levemir Flextouch) 100 Unit/1 Ml Insuln.pen 30 UNITS SC BID, EA Metformin HCl (Metformin HCl) 1,000 Mg Tablet 1000 MG PO BID, TAB LAST FILLED #60 18 Discontinued Medications: Metoprolol Tartrate (Metoprolol Tartrate) 50 Mg Tablet 50 MG PO BID, TAB Patient Instructions Patient Instructions -take medication as prescribed -do not take blood pressure medication until following up with Dr. Bermeo in the office -keep follow up appt as scheduled -if ankle pain becomes worse and is not controlled by medications prescribed, return to ED or walk in clinic Goal/Follow Up Appt: Dr. Bermeo, 01/12/18 at 1:20 PM Return to The Hospital For: chest pain or pressure, shortness of breath, nausea or vomiting that makes you unable to keep down clear liquids or medications for more than 12 hours, severe pain uncontrolled by prescribed medication, temp >101 that does not resolve with tylenol or ibuprofen, if directed by population health manager provider, or any other emergent complaints or concerns Activity & Diet Discharge Diet: ADA Diet Activity as Tolerated: Yes Copy Copies To 1: TRISTAN BREMEO MD, MARGARET E DO January 04, 2018 12:18
[2018-01-04 13:55] VITALS: BP 115/78
== END 2018-01-04 13:55 | disposition home or self-care (01) | DRG 638 ==
LOC: EDUNIT# 17:31 → ER 17:32 → ICU 18:58 → 4TH 01-03 14:50
PROVIDERS: ADMIT Family Medicine; ATTEND Family Medicine
PROC: 02H633Z Insertion of Infusion Device into Right Atrium, Percutaneous Approach (ICD-10-PCS; principal; 2018-01-02)
DX: E10.10 Type 1 diabetes mellitus with ketoacidosis without coma (principal); N28.9 Disorder of kidney and ureter, unspecified; N39.0 Urinary tract infection, site not specified; B96.20 Unspecified Escherichia coli [E. coli] as the cause of diseases classified elsewhere; E86.0 Dehydration; I95.9 Hypotension, unspecified; M25.571 Pain in right ankle and joints of right foot; F17.210 Nicotine dependence, cigarettes, uncomplicated; I87.2 Venous insufficiency (chronic) (peripheral); R01.1 Cardiac murmur, unspecified; F41.9 Anxiety disorder, unspecified; F32.9 Major depressive disorder, single episode, unspecified; D64.9 Anemia, unspecified; E66.9 Obesity, unspecified; Z91.19 Patient's noncompliance with other medical treatment and regimen; Z68.34 Body mass index [BMI] 34.0-34.9, adult; Z91.5 Personal history of self-harm; Z79.4 Long term (current) use of insulin
CPT/HCPCS: 36415; 36600; 71045; 73600; 80048; 80053; 81000; 82805; 82962; 83605; 83735; 84100; 84703; 85007; 85025; 85027; 87040; 87077; 87081; 87088; 87186; 93005; 96361; 96372; 96374; 96375